=== PATIENT | male | born 1955 | race Caucasian/White ===

== ENCOUNTER 2018-01-06 15:11 | Observation (INO) ==
[2018-01-06] MEDS ORDERED: Aspirin 81 MG TAB.CHEW PO ONE (15:23)
--- NOTE | 2018-01-06 15:47 | Emergency Department Note ---
Disposition Clinical Impression: Atrial fibrillation with RVR Disposition: Admitted As Inpatient Condition: Good Referrals: Saritha Stephen MD [Primary Care Provider] - Time of Disposition: 16:48 General Adult HPI - General Stated complaint: "a-fib", JOCELYN Source: patient, family Nursing Notes Reviewed: Yes Vital Signs Reviewed: Yes - History of Present Illness HPI Narrative: History of present illness: 62-year-old male via POV, or shortness of breath chest pain palpitations. Patient was diagnosed atrial fibrillation about 6 or 7 years ago when he saw Dr. Grant from cardiology and that was the last time he saw him. Follow-up with Dr. Stephen his primary care provider about 2 weeks ago. Patient states that has been getting worse over the past several months worse in the past week or 2 every time he either does not given mild amounts of physical activity or after he eats he says he feels fullness in his neck and fluttering in his chest. Denies nausea diaphoresis. No fever or chills dysuria constipation diarrhea skin rash headache photophobia or neck stiffness - Related Data Home Medications Medication Instructions Recorded Confirmed Aspirin Enteric Coated [Aspirin EC] 81 mg PO DAILY 01/06/18 01/06/18 Furosemide [Lasix] 20 mg PO DAILY PRN 01/06/18 01/06/18 Garlic 500 mg PO DAILY 01/06/18 01/06/18 Glimepiride [Amaryl] 2 mg PO BID 01/06/18 01/06/18 Insulin Glargine,Hum.rec.anlog 20 unit SQ QPM 01/06/18 01/06/18 [Lantus Solostar] Linagliptin [Tradjenta] 5 mg PO DAILY 01/06/18 01/06/18 Lisinopril [Zestril] 10 mg PO DAILY 01/06/18 01/06/18 Magnesium Oxide [Magnesium] 500 mg PO DAILY 01/06/18 01/06/18 Metformin HCl [Metformin HCl ER] 1,000 mg PO BID 01/06/18 01/06/18 Metoprolol [Lopressor] 100 mg PO BID 01/06/18 01/06/18 [place]-3/Dha/Epa/Fish Oil [Fish Oil 1,000 mg PO DAILY 01/06/18 01/06/18 1,000 mg Softgel] Rosuvastatin [Crestor] 20 mg PO HS 01/06/18 01/06/18 Warfarin [Coumadin] 7.5 mg PO MOWEFR 01/06/18 01/06/18 Warfarin [Coumadin] 10 mg PO SUTUTHSA 01/06/18 01/06/18 Allergies Allergy/AdvReac Type Severity Reaction Status Date / Time Sulfa (Sulfonamide Allergy Unknown See Verified 10/29/17 14:39 Antibiotics) Comments codeine AdvReac Hallucinati Verified 10/29/17 14:40 ng All systems ED: reviewed and negative except as stated. Cardiovascular: Reports: chest pain, palpitations Past Medical History - Past Medical History Attestation: Yes The following information was validated with the patient. Source: patient, obtained from family Medical history: Reports: atrial fibrillation, diabetes, hypertension Psychiatric history: Reports: no psych history - Social History Smoking Status: Never smoker Smokeless Tobacco Status: No Alcohol use: Reports: none Drug use: Reports: none Physical Exam - General Limitations: no limitations General appearance: alert, in distress - Eye Eye exam: Present: PERRL - ENT ENT exam: normal exam, normal oropharynx - Neck Neck exam: Present: normal inspection, full ROM - Chest Chest inspection: Present: normal inspection, symmetric chest wall rise - Respiratory Respiratory exam: Present: normal lung sounds bilaterally - Cardiovascular Cardiovascular exam: Present: tachycardia, irregular rhythm - Abdominal Exam Abdominal exam: Present: soft, Non-Tender - Extremities Exam Extremities exam: Present: pedal edema - Expanded Lower Extremity Exam Neurovascular/Tendon exam: Present: normal capillary refill Gait: not tested/not observed - Back Exam Back exam: Present: normal inspection, full ROM - Neurological Exam Neurological exam: Present: alert, oriented X3 - Psychiatric Psychiatric exam: Present: normal affect, normal mood - Skin Skin exam: Present: warm, dry, intact Course - Reevaluation(s) Reevaluation #1: Briefly obese individual lying in bed with his at bedside is diabetic. Has one set of A. fib with RVR into the 130s. Chest is clear he has pedal edema. Waiting for troponin and chest x-ray. Patient gets a teen milligrams IV push diltiazem. Admission anticipated, disposition pending, providing 30 units of critical care services for this patient. Time: 15:49 Reevaluation #2: The case with the hospitalist Dr. George, patient accepted for admission in stable condition. Patient responded well to 5 iv diltiazem heart rate is now in the 70s. Time: 16:47 Vital Signs Temperature 98.0 F 01/06/18 15:53 Pulse Rate 92 01/06/18 15:53 Respiratory Rate 18 01/06/18 15:53 Blood Pressure 134/83 01/06/18 15:53 O2 Sat by Pulse Oximetry 98 01/06/18 15:53 Temperature 98.0 F 01/06/18 15:53 Pulse Rate 92 01/06/18 15:53 Respiratory Rate 18 01/06/18 15:53 Blood Pressure 134/83 01/06/18 15:53 O2 Sat by Pulse Oximetry 98 01/06/18 15:53 Oxygen Delivery Oxygen Delivery Room Air Medical Decision Making - Medical Records Medical records reviewed: Yes I reviewed the patient's medical records. - Lab Data Lab results reviewed: Yes I reviewed the patient's lab results. Result diagrams: 01/06/18 15:51 01/06/18 15:51 Lab Results 01/06/18 01/06/18 01/06/18 Range/Units 15:51 15:51 15:51 WBC 6.9 (4.3-11.1) K/mcL RBC 5.32 (4.19-5.50) M/mcL Hgb 12.9 (12.9-16.9) g/dL Hct 40.4 (37.5-50.1) % MCV 75.9 L (83.0-100.0) fL MCH 24.2 L (28.0-33.3) pg MCHC 31.9 (31.6-35.5) g/dL RDW 15.1 H (11.5-14.5) % Plt Count 197 (140-400) K/mcL MPV 8.8 L (9.4-12.4) fL Immature Gran % 0.4 (0-4) % Seg Neutrophils % 62.9 % Lymphocytes % 28.7 % Monocytes % 6.5 % Eosinophils % 0.9 % Basophils % 0.6 % Neutrophils # 4.4 (1.6-8.9) K/mcL Lymphocytes # 2.0 (0.6-4.6) K/mcL Monocytes # 0.5 (0.0-1.3) K/mcL Eosinophils # 0.1 (0.0-0.6) K/mcL Basophils # 0.0 (0.0-0.2) K/mcL Immature Plt Fraction 2.2 (1.1-6.1) % Sodium 137 (136-145) mEq/L Potassium 3.9 (3.5-5.1) mEq/L Chloride 103 (98-107) mEq/L Carbon Dioxide 29 (23-29) mEq/L BUN 16 (8-23) mg/dL Creatinine 1.01 (0.70-1.30) mg/dL Est GFR ( Amer) > 60 (> 60) Est GFR (Non-Af Amer) > 60 (> 60) BUN/Creatinine Ratio 16 (6-26) Glucose 160 H (70-105) mg/dL Calculated Osmolality 289 (280-300) Calcium 8.9 (8.6-10.3) mg/dL Troponin I < 0.03 (< 0.04) ng/mL - Radiology Data Radiology results reviewed: Yes I reviewed the patient's radiology results. - EKG Data EKG #1 EKG attestation: Yes I reviewed and interpreted this EKG. EKG results narrative: 12-lead EKG interpreted without Cardiologic assistant produce manager shows: Sinus rhythm at 76 bpm, normal NE QRS and QT corrected. No acute ischemic changes are noted. No acute changes when compared to a prior EKG dated 2014. Of note but more in the patient's room examining him and getting more information he went into runs of A. fib with RVR into the 130s. He said these this is what causing his symptoms.
[2018-01-06 16:03] LABS: Basophils % 0.6 %; Eosinophils # 0.1 K/mcL (0.0-0.6); Eosinophils % 0.9 %; Hematocrit 40.4 % (37.5-50.1); Hemoglobin 12.9 g/dL (12.9-16.9); Immature Granulocytes % 0.4 % (0-4); Immature Platelets 2.2 % (1.1-6.1); Lymphocytes % 28.7 %; Mean Corpuscular HGB Conc 31.9 g/dL (31.6-35.5); Mean Corpuscular Hemoglobin 24.2 pg (28.0-33.3); Mean Corpuscular Volume 75.9 fL (83.0-100.0); Mean Platelet Volume 8.8 fL (9.4-12.4); Monocytes # 0.5 K/mcL (0.0-1.3); Monocytes % 6.5 %; Neutrophils # 4.4 K/mcL (1.6-8.9); Platelet Count 197 K/mcL (140-400); Red Blood Count 5.32 M/mcL (4.19-5.50); Red Cell Distribution Width 15.1 % (11.5-14.5); Segmented Neutrophils % 62.9 %
[2018-01-06 16:15] LABS: BUN/Creatinine Ratio 16 (6-26); Blood Urea Nitrogen 16 mg/dL (8-23); Calcium 8.9 mg/dL (8.6-10.3); Carbon Dioxide 29 mEq/L (23-29); Chloride 103 mEq/L (98-107); Glucose 160 mg/dL (70-105); Osmolality,Calculated 289 (280-300); Potassium 3.9 mEq/L (3.5-5.1); Sodium 137 mEq/L (136-145); eGFR For African Americans > 60 (> 60); eGFR For Non-African Americans > 60 (> 60)
--- NOTE | 2018-01-06 17:47 | Internal Med History&Physical ---
Date of Encounter: 01/06/18 Time of Encounter: 17:40 Assessment and Plan (1) Chest pain Current visit: Yes Status: Acute Chest pressure usually associated with atrial fibrillation With RVR multiple risk factor for cad Qualifiers: Chest pain type: precordial pain Qualified Code(s): R07.2 - Precordial pain (2) HTN (hypertension) Current visit: Yes Status: Chronic Chronic resume home medication Qualifiers: Hypertension type: essential hypertension Qualified Code(s): I10 - Essential (primary) hypertension (3) Diabetes 1.5, managed as type 2 Current visit: Yes Status: Chronic Chronic resume home medication plus sliding scale (4) Morbid obesity Current visit: Yes Status: Chronic Chronic (5) Hyperlipidemia Current visit: Yes Status: Chronic Chronic recheck lipid profile in a.m. Qualifiers: Hyperlipidemia type: pure hypercholesterolemia Qualified Code(s): E78.00 - Pure hypercholesterolemia, unspecified; E78.0 - Pure hypercholesterolemia (6) Atrial fibrillation with RVR Current visit: Yes Status: Acute Patient appears to have frequent paroxysmal defibrillation he is already on Coumadin and consult cardiology to consider antiarrhythmic VS rate control and continue anticoagulation Internal Medicine - H&P: HPI Chief complaint: chest pain, palpitation Admitted From: Emergency Dept Plans for Post Hospital Care: Home History of present illness: Mr. Padilla is a 62 year old male Patient with history of atrial fibrillation that is paroxysmal . was seen by board certified behavioral analyst about 7-8 years ago but does not follow up with cardiology only followed up with PCP patient also has history of hypertension, diabetes, high cholesterol and obesity presented emergency room with shortness of breath chest pain and palpitation . has been having recurrent palpitation with with associated chest pressure and shortness of breath has had to increase his Lopressor from 200 mg and even up to 400 mg according to the in emergency room today he was in atrial fib heart regular with about 130 given Cardizem but converted to sinus rhythm . But he said he gets several episodes of recurrent palpitation. he Is currently chest pain-free Past Med Surg Social Fam HX - Past Medical History Medical history: atrial fibrillation, diabetes, hypertension Psychiatric history: no psych history - Social History Smoking Status: Never smoker Smokeless Tobacco Status: No Alcohol use: none Drug use: none Internal Medicine - H&P: Meds Aspirin Enteric Coated [Aspirin EC] 81 mg PO DAILY 01/06/18 [History] Furosemide [Lasix] 20 mg PO DAILY PRN 01/06/18 [History] Garlic 500 mg PO DAILY 01/06/18 [History] Glimepiride [Amaryl] 2 mg PO BID 01/06/18 [History] Insulin Glargine,Hum.rec.anlog [Lantus Solostar] 20 unit SQ QPM 01/06/18 [ History] Linagliptin [Tradjenta] 5 mg PO DAILY 01/06/18 [History] Lisinopril [Zestril] 10 mg PO DAILY 01/06/18 [History] Magnesium Oxide [Magnesium] 500 mg PO DAILY 01/06/18 [History] Metformin HCl [Metformin HCl ER] 1,000 mg PO BID 01/06/18 [History] Metoprolol [Lopressor] 100 mg PO BID 01/06/18 [History] [place]-3/Dha/Epa/Fish Oil [Fish Oil 1,000 mg Softgel] 1,000 mg PO DAILY 01/06/18 [History] Rosuvastatin [Crestor] 20 mg PO HS 01/06/18 [History] Warfarin [Coumadin] 7.5 mg PO MOWEFR 01/06/18 [History] Warfarin [Coumadin] 10 mg PO SUTUTHSA 01/06/18 [History] 3 Allergy/AdvReac Type Severity Reaction Status Date / Time Sulfa (Sulfonamide Allergy Unknown See Verified 10/29/17 14:39 Antibiotics) Comments codeine AdvReac Hallucinati Verified 10/29/17 14:40 ng All Systems PM: A 10-system review of systems was performed and is negative for pertinent findings except as documented above in the HPI. - Constitutional Constitutional: no chills, no fever(s), no night sweats - EENT Eyes: no change in vision, no discharge, no pain, no photophobia Ears: no ear discharge, no ear pain, no tinnitus Nose, mouth and throat: no dysphagia, no nasal discharge, no neck pain, no sore throat - Cardiovascular Cardiovascular ROS IM: chest pain, dyspnea, dyspnea on exertion, irregular heart rhythm - Respiratory Respiratory: cough, dyspnea, dyspnea on exertion, no wheezing, no excessive phlegm production - Gastrointestinal Gastrointestinal: no abdominal pain, no diarrhea, no hematemesis, no hematochezia, no melena, no nausea, no vomiting - Musculoskeletal Musculoskeletal ROS IM: no numbness, no tingling - Constitutional Vitals: Temp Pulse Resp BP Pulse Ox 98.0 F 92 18 134/83 98 01/06/18 15:53 01/06/18 15:53 01/06/18 15:53 01/06/18 15:53 01/06/18 15:53 - Head Head exam: Present: atraumatic, normocephalic - Eye Eye exam: Present: PERRL, conjuntiva pink, sclera anicteric Pupils: Present: PERRL - Neck Neck exam general surgery: Present: supple, trachea midline. Absent: lymphadenopathy - Respiratory Respiratory exam: Present: CTAB. Absent: accessory muscle use, rales, rhonchi, wheezes - Cardiovascular Cardiovascular exam: Present: RRR, +S1, +S2. Absent: diastolic murmur, gallop, rubs, systolic murmur - GI/Abdominal GI/Abdominal exam: Present: normal bowel sounds, soft, no peritoneal signs. Absent: distended, tenderness - Extremities Exam Extremities exam: Present: warm, radial pulses palpable and symmetrical. Absent : calf tenderness, cyanotic, pedal edema - Neurological Exam Neurological exam: Present: CN II-XII intact, oriented X3, no focal deficits. Absent: pronater drift, facial droop, speech deficit - Skin Skin exam: Present: dry, intact Internal Med - H&P Results - Labs CBC & Chem 7: 01/06/18 15:51 01/06/18 15:51
[2018-01-06] MEDS ORDERED: traMADol 50 MG TABLET PO PRN (17:52)
[2018-01-06] MEDS ORDERED: Acetaminophen 325 MG TABLET PO PRN (17:52)
[2018-01-06] MEDS ORDERED: Naloxone 0.4 MG/ML INJ IVP PRN (17:52)
[2018-01-06] MEDS ORDERED: *HR* Warfarin 10 MG TABLET PO SCH (18:00)
[2018-01-06] MEDS: Insulin DETEMIR 100 UNIT/ML X5UNITS SQ SCH (18:52)
[2018-01-06] MEDS: *HR* Glimepiride 2 MG TABLET PO SCH (19:36)
[2018-01-06] MEDS: Metoprolol 100 MG TABLET PO SCH (19:36)
[2018-01-06 22:09] LABS: INR 2.2; Prothrombin Time 24.6 Seconds (9.4-12.1)
[2018-01-06] MEDS ORDERED: *HR* Warfarin 5 MG TABLET PO ONE (23:45)
[2018-01-07 03:06] LABS: Basophils % 0.6 %; Eosinophils # 0.1 K/mcL (0.0-0.6); Eosinophils % 1.4 %; Hematocrit 40.4 % (37.5-50.1); Hemoglobin 12.8 g/dL (12.9-16.9); Immature Granulocytes % 0.1 % (0-4); Lymphocytes # 2.1 K/mcL (0.6-4.6); Lymphocytes % 30.2 %; Mean Corpuscular HGB Conc 31.7 g/dL (31.6-35.5); Mean Corpuscular Hemoglobin 24.1 pg (28.0-33.3); Mean Corpuscular Volume 75.9 fL (83.0-100.0); Mean Platelet Volume 8.7 fL (9.4-12.4); Monocytes # 0.5 K/mcL (0.0-1.3); Monocytes % 7.5 %; Neutrophils # 4.3 K/mcL (1.6-8.9); Platelet Count 163 K/mcL (140-400); Red Blood Count 5.32 M/mcL (4.19-5.50); Red Cell Distribution Width 15.3 % (11.5-14.5); Segmented Neutrophils % 60.2 %
[2018-01-07 03:12] LABS: Prothrombin Time 22.3 Seconds (9.4-12.1)
[2018-01-07 03:34] LABS: Alanine Aminotransferase 20 Units/L (7-52); Albumin 3.8 g/dL (3.5-5.7); Albumin/Globulin Ratio 1.5 (1.1-2.2); Alkaline Phosphatase 45 Units/L (34-104); Aspartate Amino Transferase 31 Units/L (13-39); BUN/Creatinine Ratio 13 (6-26); Bilirubin,Total 0.4 mg/dL (0.3-1.0); Blood Urea Nitrogen 14 mg/dL (8-23); Calcium 8.7 mg/dL (8.6-10.3); Carbon Dioxide 28 mEq/L (23-29); Chloride 102 mEq/L (98-107); Chol/HDL Ratio 3.9 (0-4.9); Cholesterol 89 mg/dL (< 200); Globulin 2.5 g/dL (2.4-3.5); Glucose 158 mg/dL (70-105); HDL Cholesterol 23 mg/dL (40-59); LDL Cholesterol,Calculated 12 mg/dL (0-99); Osmolality,Calculated 286 (280-300); Potassium 4.1 mEq/L (3.5-5.1); Sodium 136 mEq/L (136-145); Total Protein 6.3 g/dL (6.4-8.9); Triglycerides 271 mg/dL (< 150); eGFR For African Americans > 60 (> 60); eGFR For Non-African Americans > 60 (> 60)
[2018-01-07] MEDS: Metoprolol 100 MG TABLET PO SCH ×2 (07:22→20:25)
[2018-01-07] MEDS ORDERED: Dextrose Gel 15 GM/37.5 ML TUBE PO PRN ×2 (08:02)
[2018-01-07] MEDS ORDERED: D5% in Water 1,000 ML IVC PRN (08:02)
[2018-01-07] MEDS ORDERED: *HR* Dextrose 50 % in Water (Syg) 50 ML SYRINGE IVP PRN (08:02)
[2018-01-07] MEDS: Magnesium Oxide 400 MG TABLET PO SCH (08:27)
[2018-01-07] MEDS: Aspirin Enteric Coated 81 MG Tablet PO SCH (08:27)
[2018-01-07] MEDS ORDERED: Insulin LISPRO 300 UNITS/3 ML VIAL SQ ONE (08:43)
[2018-01-07] MEDS: Insulin LISPRO 300 UNITS/3 ML VIAL SQ SCH ×3 (08:49→17:09)
[2018-01-07] MEDS ORDERED: (Linagliptin [Tradjenta] 5 MG) PO SCH (09:00)
[2018-01-07] MEDS ORDERED: (Garlic [Garlic] 500 MG) PO SCH (09:00)
[2018-01-07] MEDS ORDERED: (Omega-3/Dha/Epa/Fish Oil [Fish Oil 1,000 Mg Softgel] PO SCH (09:00)
--- NOTE | 2018-01-07 10:01 | Electrocardiograph Report ---
[place] [id number] Test Date: 2018-01-06 Pat Name: Solo Padilla Department: 103 Room: 2A16 Gender: M [employer] Experiences: ALIRIO : 1955 Requested By: Prince Alan Order Number: [id number] Reading MD: Jane Bravo Measurements Intervals [place] Rate: 76 P: 24 IA: 169 QRS: -4 QRSD: 92 T: 47 QT: 360 QTc: 391 Interpretive Statements SINUS RHYTHM Electronically Signed On 01-07-2018 9:59:36 EST by Jane Bravo
--- NOTE | 2018-01-07 14:33 | Internal Med Progress Note ---
Date of Encounter: 01/07/18 Time of Encounter: 14:10 - Assessment and plan (1) Atrial fibrillation with RVR Current Visit: Yes Status: Acute Assessment and plan: Rate controlled with Cardizem PO anticoagulated with Coumadin pharmacist to dose coumadin goal INR: 2-3 cardiology consultation requested (2) Chest pain Current Visit: Yes Status: Resolved Assessment and plan: resolved at this time NPO after midnight nuclear stress test in am Qualifiers: Chest pain type: precordial pain Qualified Code(s): R07.2 - Precordial pain (3) Diabetes mellitus Current Visit: Yes Status: Chronic Assessment and plan: sliding scale insulin algorithm monitor FS and BG ADA diet Qualifiers: Diabetes mellitus type: type 2 Diabetes mellitus complication status: with unspecified complications Diabetes mellitus manager terminal insulin use: with manager terminal use Qualified Code(s): E11.8 - Type 2 diabetes mellitus with unspecified complications; Z79.4 - manager terminal (current) use of insulin; Z79.4 - half-way ( current) use of insulin; Z79.4 - manager terminal (current) use of insulin; Z79.4 - manager terminal (current) use of insulin (4) HTN (hypertension) Current Visit: Yes Status: Chronic Assessment and plan: BP within acceptable range continue home meds Hydralazine 10mg IV q6h PRN SBP>160 closely monitor BP Qualifiers: Hypertension type: essential hypertension Qualified Code(s): I10 - Essential (primary) hypertension (5) Hyperlipidemia Current Visit: Yes Status: Chronic Assessment and plan: continue statin therapy Qualifiers: Hyperlipidemia type: pure hypercholesterolemia Qualified Code(s): E78.00 - Pure hypercholesterolemia, unspecified; E78.0 - Pure hypercholesterolemia (6) Morbid obesity Current Visit: Yes Status: Chronic - Subjective Interval history: Patient seen and examined with family present at bedside. Resting in bed and denies any distress or discomfort at this time. No chest pain reported at this time. - Constitutional Vitals: Temp Pulse Resp BP Pulse Ox 97.8 F 62 18 150/88 97 01/07/18 11:22 01/07/18 11:22 01/07/18 11:22 01/07/18 11:22 01/07/18 11:22 General appearance: Present: A&O X 3, morbidly obese, no acute distress, answers questions appropriately - Head Head exam: Present: atraumatic, normocephalic - Eye Eye exam: Present: conjuntiva pink, sclera anicteric - Respiratory Respiratory exam: Present: CTAB. Absent: respiratory distress, wheezes - Cardiovascular Cardiovascular exam: Present: irregular rhythm, +S1, +S2. Absent: diastolic murmur, systolic murmur - GI/Abdominal GI/Abdominal exam: Present: normal bowel sounds, soft, no peritoneal signs. Absent: distended, tenderness - Extremities Exam Extremities exam: Present: warm, radial pulses palpable and symmetrical. Absent : calf tenderness - Neurological Exam Neurological exam: Present: alert, oriented X3 - Psychiatric Psychiatric exam: Present: normal affect, normal mood Internal Medicine: Result - Labs CBC & Chem 7: 01/07/18 02:57 01/07/18 02:57 Labs: Short CBC 01/07/18 Range/Units 02:57 WBC 7.1 (4.3-11.1) K/mcL Hgb 12.8 L (12.9-16.9) g/dL Hct 40.4 (37.5-50.1) % Plt Count 163 (140-400) K/mcL Neutrophils # 4.3 (1.6-8.9) K/mcL BMP 01/07/18 02:57 Sodium 136 Potassium 4.1 Chloride 102 Carbon Dioxide 28 BUN 14 Creatinine 1.04 Glucose 158 H Calcium 8.7 Cardiac Enzymes 01/06/1818 01/07/18 Range/Units 21:15 02:57 09:22 Troponin I < 0.03 < 0.03 < 0.03 (< 0.04) ng/mL Liver Function 01/07/18 Range/Units 02:57 Total Bilirubin 0.4 (0.3-1.0) mg/dL AST 31 (13-39) Units/L ALT 20 (7-52) Units/L Alkaline Phosphatase 45 (34-104) Units/L Albumin 3.8 (3.5-5.7) g/dL - ABG Interpretation ABG results: PT/INR, D-dimer PT 22.3 Seconds (9.4-12.1) H 01/07/18 02:57 Consult Discharge Plan - Plan Referrals: Saritha Stephen MD [Primary Care Provider] - 01/14/18 8:00 am (Please follow up as schedule..)
--- NOTE | 2018-01-07 14:54 | Cardiology Consult Note ---
Date of Encounter: 01/07/18 Time of Encounter: 14:40 Assessment and Plan (1) Atrial fibrillation with RVR Current Visit: Yes Status: Acute Patient seen to have frequent paroxysmal atrial fibrillation. Currently NSR. Continue lopressor. Add cardizem and increase as needed. On coumadin for AC. INR therapeutic. Follows with the [facility]. (2) Chest pain Current Visit: Yes Status: Resolved C/o typical chest pain symptoms. May be related to afib. He does have multiple cardiac risk factors including family history, HTN, HLD, and DM. EKG shows SR with no acute changes. Troponin negative. TTE ordered. Stress test is recommended for further eval. Qualifiers: Chest pain type: precordial pain Qualified Code(s): R07.2 - Precordial pain Discussion w patient/family: The assessment and plan as outlined above was discussed with the patient and/or family members who expressed understanding and agreement. All questions were answered. Thank you for involving us in the care of your patient. Please call with any questions. History of Present Illness Consult date: 01/07/18 Requesting physician: Thom Lebron Consult reason: afib Chief complaint: Chest pain and SOB History of present illness: Mr. Padilla is a 62 year old male with a past medical history of atrial fibrillation on coumadin, HTN, DM type II, HLD, and obesity. He presents with the c/o intermittent midsternal chest pain radiating to his neck and SOB with exertion. He associates his symptoms with elevated heart rates. Reports HR as high as 150 bpm at home . He would take extra metoprolol when needed for HR above 120. He says he was starting to take extra metoprolol everyday. Past Med Surg Social Fam HX - Past Medical History Attestation: Yes The following information was validated with the patient. Medical history: atrial fibrillation, diabetes, hypertension Psychiatric history: no psych history - Social History Smoking Status: Never smoker Smokeless Tobacco Status: No Alcohol use: none Drug use: none Medications and Allergies Aspirin Enteric Coated [Aspirin EC] 81 mg PO DAILY 01/06/18 [History] Furosemide [Lasix] 20 mg PO DAILY PRN 01/06/18 [History] Garlic 500 mg PO DAILY 01/06/18 [History] Glimepiride [Amaryl] 2 mg PO BID 01/06/18 [History] Insulin Glargine,Hum.rec.anlog [Lantus Solostar] 20 unit SQ QPM 01/06/18 [ History] Linagliptin [Tradjenta] 5 mg PO DAILY 01/06/18 [History] Lisinopril [Zestril] 10 mg PO DAILY 01/06/18 [History] Magnesium Oxide [Magnesium] 500 mg PO DAILY 01/06/18 [History] Metformin HCl [Metformin HCl ER] 1,000 mg PO BID 01/06/18 [History] Metoprolol [Lopressor] 100 mg PO BID 01/06/18 [History] [place]-3/Dha/Epa/Fish Oil [Fish Oil 1,000 mg Softgel] 1,000 mg PO DAILY 01/06/18 [History] Rosuvastatin [Crestor] 20 mg PO HS 01/06/18 [History] Warfarin [Coumadin] 7.5 mg PO MOWEFR 01/06/18 [History] Warfarin [Coumadin] 10 mg PO SUTUTHSA 01/06/18 [History] 3 Allergy/AdvReac Type Severity Reaction Status Date / Time Sulfa (Sulfonamide Allergy Unknown See Verified 10/29/17 14:39 Antibiotics) Comments codeine AdvReac Hallucinati Verified 10/29/17 14:40 ng All Systems Review: A 10-system review of systems was performed and is negative for pertinent findings except as documented above in the HPI. Physical Examination Vital Signs, Last 4 Hours Temp Pulse Resp BP Pulse Ox 01/07/18 11:22 97.8 F 62 18 150/88 97 General: Conversant, No Apparent Distress HEENT: Atraumatic, Normocephaly, Mucus Membranes Moist Neck: No JVD, Normal carotid pulses Cardiac: Other (irregularly irregular) Lungs: Normal Breath Sounds, No Wheeze, Rales, Rhonchi Neuro: Alert and responsive, No focal deficits noted Abdomen: Soft, Non-Tender Skin: No rashes noted on visualized skin Musculoskeletal: No Chest Wall Tenderness Extremities: No Clubbing, No Cyanosis, No Edema, Normal Pulses Results 01/07/18 02:57 01/07/18 02:57 Lab Results 01/06/18 01/06/18 01/07/18 21:15 21:49 02:57 WBC Hgb Hct Plt Count INR 2.2 Sodium Potassium Chloride Carbon Dioxide BUN Creatinine Glucose Calcium Magnesium Total Bilirubin AST ALT Alkaline Phosphatase Troponin I < 0.03 < 0.03 B-Natriuretic Peptide 01/07/18 01/07/18 01/07/18 02:57 02:57 02:57 WBC 7.1 Hgb 12.8 L Hct 40.4 Plt Count 163 INR Sodium 136 Potassium 4.1 Chloride 102 Carbon Dioxide 28 BUN 14 Creatinine 1.04 Glucose 158 H Calcium 8.7 Magnesium 2.0 Total Bilirubin 0.4 AST 31 ALT 20 Alkaline Phosphatase 45 Troponin I B-Natriuretic Peptide 132 H 01/07/18 01/07/18 02:57 09:22 WBC Hgb Hct Plt Count INR 2.0 Sodium Potassium Chloride Carbon Dioxide BUN Creatinine Glucose Calcium Magnesium Total Bilirubin AST ALT Alkaline Phosphatase Troponin I < 0.03 B-Natriuretic Peptide - Imaging and Cardiology Echo: pending, report reviewed - EKG Interpretation EKG results cardiology: personally reviewed Consult Discharge Plan - Plan Referrals: Saritha Stephen MD [Primary Care Provider] - 01/14/18 8:00 am (Please follow up as schedule..)
[2018-01-07] MEDS: Diltiazem CD (24hr) 120 MG CAPSULE PO SCH (15:41)
[2018-01-07] MEDS: Insulin DETEMIR 100 UNIT/ML X5UNITS SQ SCH (17:09)
[2018-01-07] MEDS ORDERED: Perflutren Lipid Microsphere 1.3 ML in 0.9 % Sodium Chloride 8.7 ML IVP ONE (17:49)
[2018-01-07] MEDS ORDERED: Perflutren Lipid Microsphere 2 ML VIAL ONE (17:52)
[2018-01-07] MEDS ORDERED: *HR* Warfarin 7.5 MG TABLET PO SCH (17:54)
[2018-01-07] MEDS ORDERED: Warfarin perPT PO PRN (18:00)
[2018-01-07] MEDS ORDERED: *HR* Warfarin 7.5 MG TABLET PO ONE (18:00)
[2018-01-07] MEDS ORDERED: *HR* Warfarin 2.5 MG TABLET PO ONE (18:00)
[2018-01-07] MEDS ORDERED: Insulin LISPRO 300 UNITS/3 ML VIAL SQ SCH (21:00)
[2018-01-08] MEDS ORDERED: Regadenoson 0.4 MG/5 ML SYRINGE IVP ONE (06:13)
[2018-01-08 06:34] LABS: Basophils # 0.1 K/mcL (0.0-0.2); Basophils % 0.8 %; Eosinophils # 0.1 K/mcL (0.0-0.6); Eosinophils % 1.5 %; Hematocrit 40.3 % (37.5-50.1); Hemoglobin 12.3 g/dL (12.9-16.9); Immature Granulocytes % 0.3 % (0-4); Lymphocytes % 31.2 %; Mean Corpuscular HGB Conc 30.5 g/dL (31.6-35.5); Mean Corpuscular Hemoglobin 23.6 pg (28.0-33.3); Mean Corpuscular Volume 77.2 fL (83.0-100.0); Mean Platelet Volume 8.6 fL (9.4-12.4); Monocytes # 0.5 K/mcL (0.0-1.3); Monocytes % 7.2 %; Neutrophils # 3.9 K/mcL (1.6-8.9); Platelet Count 170 K/mcL (140-400); Red Blood Count 5.22 M/mcL (4.19-5.50); Red Cell Distribution Width 15.3 % (11.5-14.5)
[2018-01-08 06:35] LABS: INR 2.3; Prothrombin Time 25.6 Seconds (9.4-12.1)
[2018-01-08 06:43] LABS: BUN/Creatinine Ratio 14 (6-26); Blood Urea Nitrogen 14 mg/dL (8-23); Calcium 8.7 mg/dL (8.6-10.3); Carbon Dioxide 28 mEq/L (23-29); Chloride 102 mEq/L (98-107); Glucose 214 mg/dL (70-105); Magnesium 2.2 mg/dL (1.6-2.6); Osmolality,Calculated 287 (280-300); Phosphorous 3.7 mg/dL (2.7-4.5); Potassium 4.6 mEq/L (3.5-5.1); Sodium 135 mEq/L (136-145); eGFR For African Americans > 60 (> 60); eGFR For Non-African Americans > 60 (> 60)
--- NOTE | 2018-01-08 09:25 | Cardiology Progress Note ---
Date of Encounter: 01/08/18 Time of Encounter: 09:23 Assessment and Plan (1) Atrial fibrillation with RVR Current Visit: Yes Status: Acute Patient seen to have frequent paroxysmal atrial fibrillation on admission. Currently NSR. 24 hour telemetry review shows less PAF. Avg HR 64- NSR. Noted to have atrial fibrillation around 8:00pm last night. Otherwise o recurrent events. Continue lopressor. Cardizem was added. On coumadin for AC. INR therapeutic. Follows with the [facility]. (2) Chest pain Current Visit: Yes Status: Resolved C/o typical chest pain symptoms. May be related to afib. He does have multiple cardiac risk factors including family history, HTN, HLD, and DM. EKG shows SR with no acute changes. Troponin negative. TTE ordered. 2 day stress test in progress. Qualifiers: Chest pain type: precordial pain Qualified Code(s): R07.2 - Precordial pain Discussion w patient/family: The assessment and plan as outlined above was discussed with the patient and/or family members who expressed understanding and agreement. All questions were answered. Thank you for involving us in the care of your patient. Please call with any questions. Subjective Principal diagnosis: afib with RVR, Chest pain Interval history: Denies recurrent chest pain overnight. Objective Vital Signs, Last 4 Hours Temp Pulse Resp BP Pulse Ox 01/08/18 07:27 98.2 F 62 14 125/79 96 General: Conversant, No Apparent Distress, Other (Obese male) HEENT: Atraumatic, Normocephaly, Mucus Membranes Moist Neck: No JVD, Normal carotid pulses Cardiac: Reg Rate and Rhythm, Normal S1 and S2, No Murmur Lungs: Normal Breath Sounds, No Wheeze, Rales, Rhonchi Neuro: Alert and responsive, No focal deficits noted Abdomen: Soft, Non-Tender Skin: No rashes noted on visualized skin Musculoskeletal: No Chest Wall Tenderness Extremities: No Clubbing, No Cyanosis, No Edema, Normal Pulses Results 01/08/18 06:12 01/08/18 06:12 Lab Results 01/07/18 01/08/18 01/08/18 09:22 06:12 06:12 WBC 6.5 Hgb 12.3 L Hct 40.3 Plt Count 170 INR 2.3 Sodium Potassium Chloride Carbon Dioxide BUN Creatinine Glucose Calcium Magnesium Troponin I < 0.03 01/08/18 06:12 WBC Hgb Hct Plt Count INR Sodium 135 L Potassium 4.6 Chloride 102 Carbon Dioxide 28 BUN 14 Creatinine 0.99 Glucose 214 H Calcium 8.7 Magnesium 2.2 Troponin I - Imaging and Cardiology Stress Test: pending Echo: pending - EKG Interpretation EKG results cardiology: personally reviewed Consult Discharge Plan - Plan Referrals: Saritha Stephen MD [Primary Care Provider] - 01/14/18 8:00 am (Please follow up as schedule..)
[2018-01-08] MEDS: Magnesium Oxide 400 MG TABLET PO SCH (10:31)
[2018-01-08] MEDS: Metoprolol 100 MG TABLET PO SCH ×2 (10:31→20:42)
[2018-01-08] MEDS: Diltiazem CD (24hr) 120 MG CAPSULE PO SCH (10:31)
[2018-01-08] MEDS: Aspirin Enteric Coated 81 MG Tablet PO SCH (10:31)
[2018-01-08] MEDS: Insulin LISPRO 300 UNITS/3 ML VIAL SQ SCH ×4 (10:32→21:46)
--- NOTE | 2018-01-08 12:28 | Internal Med Progress Note ---
Date of Encounter: 01/08/18 Time of Encounter: 11:26 - Assessment and plan (1) Atrial fibrillation with RVR Current Visit: Yes Status: Acute Assessment and plan: Rate controlled with Cardizem PO anticoagulated with Coumadin pharmacist to dose coumadin goal INR: 2-3 cardiology consultation appreciated (2) Chest pain Current Visit: Yes Status: Resolved Assessment and plan: resolved at this time s/p 1st part of the stress test, awaiting second part, which wont be done until Wednesday Qualifiers: Chest pain type: precordial pain Qualified Code(s): R07.2 - Precordial pain (3) Diabetes mellitus Current Visit: Yes Status: Chronic Assessment and plan: increased to medium dose sliding scale insulin algorithm continue home dose of Levemir monitor FS and BG ADA diet Qualifiers: Diabetes mellitus type: type 2 Diabetes mellitus complication status: with unspecified complications Diabetes mellitus glass handler insulin use: with intermediate use Qualified Code(s): E11.8 - Type 2 diabetes mellitus with unspecified complications; Z79.4 - armhole raiser lockstitch (current) use of insulin; Z79.4 - armhole raiser lockstitch ( current) use of insulin; Z79.4 - care home (current) use of insulin; Z79.4 - armhole raiser lockstitch (current) use of insulin (4) HTN (hypertension) Current Visit: Yes Status: Chronic Assessment and plan: BP within acceptable range continue home meds Hydralazine 10mg IV q6h PRN SBP>160 closely monitor BP Qualifiers: Hypertension type: essential hypertension Qualified Code(s): I10 - Essential (primary) hypertension (5) Hyperlipidemia Current Visit: Yes Status: Chronic Assessment and plan: continue statin therapy Qualifiers: Hyperlipidemia type: pure hypercholesterolemia Qualified Code(s): E78.00 - Pure hypercholesterolemia, unspecified; E78.0 - Pure hypercholesterolemia (6) Morbid obesity Current Visit: Yes Status: Chronic - Subjective Interval history: Patient seen and examined with family present at bedside. Resting in bed and denies any distress or discomfort at this time. No chest pain reported at this time. s/p part I of the stress test, 2nd part pending, will be done on Wednesday - Constitutional Vitals: Temp Pulse Resp BP Pulse Ox 98.2 F 62 16 115/73 94 01/08/18 12:22 01/08/18 12:22 01/08/18 12:22 01/08/18 12:22 01/08/18 12:22 General appearance: Present: A&O X 3, morbidly obese, no acute distress, answers questions appropriately - Head Head exam: Present: atraumatic, normocephalic - Eye Eye exam: Present: conjuntiva pink, sclera anicteric - Respiratory Respiratory exam: Absent: rales (equal air entry bilaterally ), respiratory distress, wheezes - Cardiovascular Cardiovascular exam: Present: RRR, +S1, +S2. Absent: diastolic murmur, gallop, rubs, systolic murmur - GI/Abdominal GI/Abdominal exam: Present: normal bowel sounds, soft, no peritoneal signs. Absent: distended, tenderness - Extremities Exam Extremities exam: Present: warm, radial pulses palpable and symmetrical. Absent : calf tenderness - Neurological Exam Neurological exam: Present: alert, oriented X3 - Psychiatric Psychiatric exam: Present: normal affect, normal mood Internal Medicine: Result - Labs CBC & Chem 7: 01/08/18 06:12 01/08/18 06:12 Labs: Short CBC 01/08/18 Range/Units 06:12 WBC 6.5 (4.3-11.1) K/mcL Hgb 12.3 L (12.9-16.9) g/dL Hct 40.3 (37.5-50.1) % Plt Count 170 (140-400) K/mcL Neutrophils # 3.9 (1.6-8.9) K/mcL BMP 01/08/18 06:12 Sodium 135 L Potassium 4.6 Chloride 102 Carbon Dioxide 28 BUN 14 Creatinine 0.99 Glucose 214 H Calcium 8.7 - ABG Interpretation ABG results: PT/INR, D-dimer PT 25.6 Seconds (9.4-12.1) H 01/08/18 06:12 - Impressions Impressions Echocardiogram 01/07/18 13:32 Impressions: LVEF 55-60%. No pulmonary hypertension. No segmental dysfunction. No significant valvular dysfunction. Moderately enlarged left atrial size. Left Ventricular Wall Motion: Rest Echo Findings All wall segments showed normal motion. Findings: Study Quality * Technically adequate exam. Right Ventricle * Normal right ventricular structure and function. Mitral Valve * Normal mitral valve structure and function. Aorta * Normally sized aortic root. Pericardium * The pericardium appears normal. ECG Findings * Normal sinus rhythm. Tricuspid Valve * No tricuspid stenosis. * Estimated RVSP is 27 mmHg. * No pulmonary hypertension. Left Ventricle * LVEF 55-60%. * No segmental dysfunction. * Mild left ventricular diastolic dysfunction. Pulmonic Valve * No pulmonic stenosis. * No pulmonic regurgitation. Aortic Valve * No aortic stenosis. * No aortic regurgitation. * Aortic valve not well visualized. Right Atrium * Right atrium is not well visualized. Interatrial Septum * Interatrial septum not well evaluated. IVC * The IVC is not dilated. * The IVC is not well evaluated. Left Atrium * Moderately dilated left atrium. Consult Discharge Plan - Plan Referrals: Saritha Stephen MD [Primary Care Provider] - 01/14/18 8:00 am (Please follow up as schedule..)
[2018-01-08] MEDS: Insulin DETEMIR 100 UNIT/ML X5UNITS SQ SCH (16:57)
[2018-01-08] MEDS ORDERED: *HR* Warfarin 5 MG TABLET PO ONE (18:00)
[2018-01-09 07:08] LABS: INR 1.9; Prothrombin Time 21.1 Seconds (9.4-12.1)
[2018-01-09 07:21] LABS: BUN/Creatinine Ratio 13 (6-26); Blood Urea Nitrogen 13 mg/dL (8-23); Calcium 8.6 mg/dL (8.6-10.3); Carbon Dioxide 27 mEq/L (23-29); Chloride 102 mEq/L (98-107); Glucose 223 mg/dL (70-105); Magnesium 2.1 mg/dL (1.6-2.6); Osmolality,Calculated 287 (280-300); Phosphorous 3.7 mg/dL (2.7-4.5); Potassium 4.2 mEq/L (3.5-5.1); Sodium 135 mEq/L (136-145); eGFR For African Americans > 60 (> 60); eGFR For Non-African Americans > 60 (> 60)
[2018-01-09 07:32] LABS: Basophils # 0.1 K/mcL (0.0-0.2); Basophils % 0.7 %; Eosinophils # 0.1 K/mcL (0.0-0.6); Eosinophils % 1.5 %; Hematocrit 40.1 % (37.5-50.1); Hemoglobin 12.4 g/dL (12.9-16.9); Immature Granulocytes % 0.3 % (0-4); Lymphocytes # 1.9 K/mcL (0.6-4.6); Lymphocytes % 27.7 %; Mean Corpuscular HGB Conc 30.9 g/dL (31.6-35.5); Mean Corpuscular Hemoglobin 23.8 pg (28.0-33.3); Monocytes # 0.5 K/mcL (0.0-1.3); Monocytes % 6.9 %; Neutrophils # 4.2 K/mcL (1.6-8.9); Platelet Count 186 K/mcL (140-400); Red Blood Count 5.21 M/mcL (4.19-5.50); Red Cell Distribution Width 15.4 % (11.5-14.5); Segmented Neutrophils % 62.9 %
--- NOTE | 2018-01-09 07:45 | Event Note ---
Date of Encounter: 01/09/18 Time of Encounter: 07:42 - Cardiology Event Note Patient awaiting completion of two day stress test for evaluation of chest pain. Second part will be completed tomorrow. Currently NSR. Telemetry review shows few small runs PAF. Increases cardizem at needed. May require rhythm control strategy. Will discuss after stress test resulted. Continue to monitor.
[2018-01-09] MEDS: Insulin LISPRO 300 UNITS/3 ML VIAL SQ SCH ×7 (09:05→21:41)
[2018-01-09] MEDS: Diltiazem CD (24hr) 180 MG CAPSULE PO SCH (09:05)
[2018-01-09] MEDS: Magnesium Oxide 400 MG TABLET PO SCH (09:05)
[2018-01-09] MEDS: Aspirin Enteric Coated 81 MG Tablet PO SCH (09:05)
[2018-01-09] MEDS: Metoprolol 100 MG TABLET PO SCH ×2 (09:05→21:41)
[2018-01-09] MEDS: Insulin DETEMIR 100 UNIT/ML X5UNITS SQ SCH ×4 (09:05→17:04)
--- NOTE | 2018-01-09 11:39 | Internal Med Progress Note ---
Date of Encounter: 01/09/18 Time of Encounter: 10:06 - Assessment and plan (1) Atrial fibrillation with RVR Current Visit: Yes Status: Acute Assessment and plan: Rate controlled with Cardizem PO anticoagulated with Coumadin pharmacist to dose coumadin goal INR: 2-3 cardiology consultation appreciated (2) Chest pain Current Visit: Yes Status: Resolved Assessment and plan: resolved at this time s/p 1st part of the stress test, awaiting second part, which wont be done until Wednesday Qualifiers: Chest pain type: precordial pain Qualified Code(s): R07.2 - Precordial pain (3) Diabetes mellitus Current Visit: Yes Status: Chronic Assessment and plan: medium dose sliding scale insulin algorithm added levemir 14units SQ qam in addition to the levemir at bedtime, and humalog 5units SQ TIDAC based on the insulin requirements over the last 24 hours. Pt noted to be eating baked goods in the room, diabetic education/dietary adherence counseling provided. Pt willing to comply monitor FS and BG ADA diet Qualifiers: Diabetes mellitus type: type 2 Diabetes mellitus complication status: with unspecified complications Diabetes mellitus half-way insulin use: with chief clerk shelter use Qualified Code(s): E11.8 - Type 2 diabetes mellitus with unspecified complications; Z79.4 - [facility] (current) use of insulin; Z79.4 - harbor boat pilot ( current) use of insulin; Z79.4 - harbor boat pilot (current) use of insulin; Z79.4 - harbor boat pilot (current) use of insulin (4) HTN (hypertension) Current Visit: Yes Status: Chronic Assessment and plan: BP within acceptable range continue home meds Hydralazine 10mg IV q6h PRN SBP>160 closely monitor BP Qualifiers: Hypertension type: essential hypertension Qualified Code(s): I10 - Essential (primary) hypertension (5) Hyperlipidemia Current Visit: Yes Status: Chronic Assessment and plan: continue statin therapy Qualifiers: Hyperlipidemia type: pure hypercholesterolemia Qualified Code(s): E78.00 - Pure hypercholesterolemia, unspecified; E78.0 - Pure hypercholesterolemia (6) Morbid obesity Current Visit: Yes Status: Chronic - Subjective Interval history: Patient seen and examined at bedside. Resting in chair and denies any distress or discomfort at this time. No chest pain reported at this time. s/p part I of the stress test, 2nd part pending, will be done on Wednesday - Constitutional Vitals: Temp Pulse Resp BP Pulse Ox 97.8 F 57 17 126/77 57 01/09/18 11:12 01/09/18 11:12 01/09/18 11:12 01/09/18 11:12 01/09/18 11:12 General appearance: Present: A&O X 3, morbidly obese, no acute distress, answers questions appropriately - Head Head exam: Present: atraumatic, normocephalic - Eye Eye exam: Present: conjuntiva pink, sclera anicteric - Respiratory Respiratory exam: Present: CTAB. Absent: accessory muscle use, rales, rhonchi, wheezes - Cardiovascular Cardiovascular exam: Present: RRR, +S1, +S2. Absent: diastolic murmur, gallop, rubs, systolic murmur - GI/Abdominal GI/Abdominal exam: Present: normal bowel sounds, soft, no peritoneal signs. Absent: distended, tenderness - Extremities Exam Extremities exam: Present: warm, radial pulses palpable and symmetrical. Absent : calf tenderness - Neurological Exam Neurological exam: Present: alert, oriented X3 Internal Medicine: Result - Labs CBC & Chem 7: 01/09/18 06:44 01/09/18 06:44 Labs: Short CBC 01/09/18 Range/Units 06:44 WBC 6.7 (4.3-11.1) K/mcL Hgb 12.4 L (12.9-16.9) g/dL Hct 40.1 (37.5-50.1) % Plt Count 186 (140-400) K/mcL Neutrophils # 4.2 (1.6-8.9) K/mcL BMP 01/09/18 06:44 Sodium 135 L Potassium 4.2 Chloride 102 Carbon Dioxide 27 BUN 13 Creatinine 0.98 Glucose 223 H Calcium 8.6 - ABG Interpretation ABG results: PT/INR, D-dimer PT 21.1 Seconds (9.4-12.1) H 01/09/18 06:44 Consult Discharge Plan - Plan Referrals: Saritha Stephen MD [Primary Care Provider] - 01/14/18 8:00 am (Please follow up as schedule..)
[2018-01-09] MEDS ORDERED: *HR* Warfarin 5 MG TABLET PO ONE (18:00)
[2018-01-09] MEDS: *HR* Glimepiride 2 MG TABLET PO SCH (18:36)
[2018-01-10 06:32] LABS: Eosinophils % 1.5 %; Hematocrit 41.9 % (37.5-50.1); Immature Granulocytes % 0.3 % (0-4); Lymphocytes % 29.2 %; Mean Corpuscular Hemoglobin 23.9 pg (28.0-33.3); Mean Corpuscular Volume 77.2 fL (83.0-100.0); Mean Platelet Volume 8.5 fL (9.4-12.4); Monocytes % 7.4 %; Platelet Count 188 K/mcL (140-400); Red Blood Count 5.43 M/mcL (4.19-5.50); Red Cell Distribution Width 15.5 % (11.5-14.5)
[2018-01-10 06:33] LABS: Basophils % 0.6 %; Eosinophils # 0.1 K/mcL (0.0-0.6); Monocytes # 0.5 K/mcL (0.0-1.3); Neutrophils # 4.1 K/mcL (1.6-8.9)
[2018-01-10 06:38] LABS: INR 1.8; Prothrombin Time 19.2 Seconds (9.4-12.1)
[2018-01-10 06:49] LABS: BUN/Creatinine Ratio 14 (6-26); Blood Urea Nitrogen 14 mg/dL (8-23); Calcium 9.1 mg/dL (8.6-10.3); Carbon Dioxide 27 mEq/L (23-29); Chloride 102 mEq/L (98-107); Glucose 210 mg/dL (70-105); Magnesium 2.1 mg/dL (1.6-2.6); Osmolality,Calculated 287 (280-300); Phosphorous 3.9 mg/dL (2.7-4.5); Potassium 4.3 mEq/L (3.5-5.1); Sodium 135 mEq/L (136-145); eGFR For African Americans > 60 (> 60); eGFR For Non-African Americans > 60 (> 60)
[2018-01-10] MEDS: Insulin LISPRO 300 UNITS/3 ML VIAL SQ SCH ×10 (07:35→20:45)
[2018-01-10] MEDS: Metoprolol 100 MG TABLET PO SCH ×2 (08:39→20:45)
[2018-01-10] MEDS: Diltiazem CD (24hr) 180 MG CAPSULE PO SCH (08:39)
[2018-01-10] MEDS: Aspirin Enteric Coated 81 MG Tablet PO SCH (08:39)
[2018-01-10] MEDS: Magnesium Oxide 400 MG TABLET PO SCH (08:39)
--- NOTE | 2018-01-10 09:34 | Cardiology Progress Note ---
Date of Encounter: 01/10/18 Time of Encounter: 09:31 Assessment and Plan (1) Atrial fibrillation with RVR Current Visit: Yes Status: Acute Patient seen to have frequent paroxysmal atrial fibrillation on admission. Currently NSR. 24 hour telemetry review shows intermittent PAF despite addition of cardizem. Avg HR 64- NSR. Noted to have small runs PAF 9 times through the night. Continue lopressor and cardizem. Unable to titrate further due to HR in the 50' s at times. If no improvement he may require anti-arrhythmic therapy. Will discuss after LHC. On coumadin for AC. Hold for LHC. Follows with the [facility]. (2) Chest pain Current Visit: Yes Status: Resolved C/o typical chest pain symptoms with activity. May be related to afib. He does have multiple cardiac risk factors including family history, HTN, HLD, and DM. EKG shows SR with no acute changes. Troponin negative. TTE shows preserved EF. 2 day stress test shows possible ischemia in the inferior apical wall and apex. I discussed [facility] R/B/A and he agrees to proceed. Hold coumadin and start heparin gtt. LHC when INR 1.6 or less. Qualifiers: Chest pain type: precordial pain Qualified Code(s): R07.2 - Precordial pain (3) Abnormal stress test Current Visit: Yes Status: Acute See plan above. Discussion w patient/family: The assessment and plan as outlined above was discussed with the patient and/or family members who expressed understanding and agreement. All questions were answered. Thank you for involving us in the care of your patient. Please call with any questions. Subjective Principal diagnosis: afib with RVR, Chest pain Interval history: Denies recurrent chest pain overnight. Objective Vital Signs, Last 4 Hours Temp Pulse Resp BP Pulse Ox 01/10/18 07:12 98.0 F 63 14 142/79 95 General: Conversant, No Apparent Distress HEENT: Atraumatic, Normocephaly, Mucus Membranes Moist Neck: No JVD, Normal carotid pulses Cardiac: Reg Rate and Rhythm, Normal S1 and S2, No Murmur Lungs: Normal Breath Sounds, No Wheeze, Rales, Rhonchi Neuro: Alert and responsive, No focal deficits noted Abdomen: Soft, Non-Tender Skin: No rashes noted on visualized skin Musculoskeletal: No Chest Wall Tenderness Extremities: No Clubbing, No Cyanosis, No Edema, Normal Pulses Results 01/10/18 06:16 01/10/18 06:16 Lab Results 01/10/18 01/10/18 01/10/18 06:16 06:16 06:16 WBC 6.8 Hgb 13.0 Hct 41.9 Plt Count 188 INR 1.8 Sodium 135 L Potassium 4.3 Chloride 102 Carbon Dioxide 27 BUN 14 Creatinine 0.98 Glucose 210 H Calcium 9.1 Magnesium 2.1 - EKG Interpretation EKG results cardiology: personally reviewed Consult Discharge Plan - Plan Referrals: Saritha Stephen MD [Primary Care Provider] - 01/14/18 8:00 am (Please follow up as schedule..)
--- NOTE | 2018-01-10 12:07 | Internal Med Progress Note ---
Date of Encounter: 01/10/18 Time of Encounter: 11:40 - Assessment and plan (1) Abnormal stress test Current Visit: Yes Status: Acute Assessment and plan: cardiology follow up requested (2) Atrial fibrillation with RVR Current Visit: Yes Status: Acute Assessment and plan: Rate controlled with Cardizem PO anticoagulated with Coumadin pharmacist to dose coumadin goal INR: 2-3 cardiology consultation appreciated (3) Chest pain Current Visit: Yes Status: Resolved Assessment and plan: resolved abnormal stress test reported cardiology follow up requested Qualifiers: Chest pain type: precordial pain Qualified Code(s): R07.2 - Precordial pain (4) Diabetes mellitus Current Visit: Yes Status: Chronic Assessment and plan: medium dose sliding scale insulin algorithm adjusted levemir and humalog dosing as per additional insulin requirements over the last 24 hours monitor FS and BG ADA diet Qualifiers: Diabetes mellitus type: type 2 Diabetes mellitus complication status: with unspecified complications Diabetes mellitus automatic log cut off sawyer insulin use: with halfway use Qualified Code(s): E11.8 - Type 2 diabetes mellitus with unspecified complications; Z79.4 - alf (current) use of insulin; Z79.4 - alf ( current) use of insulin; Z79.4 - pressroom 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0 - Pure hypercholesterolemia (7) Morbid obesity Current Visit: Yes Status: Chronic - Subjective Interval history: Pt seen and examined with family present at bedside. Resting in bed and denies any discomfort. Stress test reported to be abnormal suggestive of apical inferior and apex ischemia, normal EF cardiology follow up requested. - Constitutional Vitals: Temp Pulse Resp BP Pulse Ox 98.0 F 63 14 142/79 95 01/10/18 07:12 01/10/18 07:12 01/10/18 07:12 01/10/18 07:12 01/10/18 07:12 General appearance: Present: A&O X 3, morbidly obese, no acute distress, answers questions appropriately - Head Head exam: Present: atraumatic, normocephalic - Eye Eye exam: Present: conjuntiva pink, sclera anicteric - Respiratory Respiratory exam: Present: CTAB. Absent: respiratory distress, wheezes - Cardiovascular Cardiovascular exam: Present: RRR, +S1, +S2. Absent: diastolic murmur, gallop, rubs, systolic murmur - GI/Abdominal GI/Abdominal exam: Present: normal bowel sounds, soft, no peritoneal signs. Absent: distended, tenderness - Extremities Exam Extremities exam: Present: warm, radial pulses palpable and symmetrical. Absent : calf tenderness - Neurological Exam Neurological exam: Present: alert, oriented X3 - Psychiatric Psychiatric exam: Present: normal affect, normal mood Internal Medicine: Result - Labs CBC & Chem 7: 01/10/18 06:16 01/10/18 06:16 Labs: Short CBC 01/10/18 Range/Units 06:16 WBC 6.8 (4.3-11.1) K/mcL Hgb 13.0 (12.9-16.9) g/dL Hct 41.9 (37.5-50.1) % Plt Count 188 (140-400) K/mcL Neutrophils # 4.1 (1.6-8.9) K/mcL BMP 01/10/18 06:16 Sodium 135 L Potassium 4.3 Chloride 102 Carbon Dioxide 27 BUN 14 Creatinine 0.98 Glucose 210 H Calcium 9.1 - ABG Interpretation ABG results: PT/INR, D-dimer PT 19.2 Seconds (9.4-12.1) H 01/10/18 06:16 Consult Discharge Plan - Plan Referrals: Saritha Stephen MD [Primary Care Provider] - 01/14/18 8:00 am (Please follow up as schedule..)
[2018-01-10] MEDS: *HR* Heparin 5,000 UNIT/ML VIAL SQ SCH (17:19)
[2018-01-10] MEDS ORDERED: *HR* Warfarin 7.5 MG TABLET PO ONE (18:00)
[2018-01-10] MEDS: Insulin DETEMIR 100 UNIT/ML X5UNITS SQ SCH (20:44)
[2018-01-11] MEDS: *HR* Heparin 5,000 UNIT/ML VIAL SQ SCH ×2 (05:09→17:09)
[2018-01-11 06:46] LABS: Basophils % 0.7 %; Eosinophils # 0.1 K/mcL (0.0-0.6); Eosinophils % 1.8 %; Hematocrit 41.3 % (37.5-50.1); Hemoglobin 12.7 g/dL (12.9-16.9); Immature Granulocytes % 0.4 % (0-4); Lymphocytes # 1.8 K/mcL (0.6-4.6); Lymphocytes % 30.8 %; Mean Corpuscular HGB Conc 30.8 g/dL (31.6-35.5); Mean Corpuscular Hemoglobin 23.8 pg (28.0-33.3); Mean Corpuscular Volume 77.5 fL (83.0-100.0); Mean Platelet Volume 8.6 fL (9.4-12.4); Monocytes # 0.4 K/mcL (0.0-1.3); Monocytes % 6.7 %; Neutrophils # 3.4 K/mcL (1.6-8.9); Platelet Count 164 K/mcL (140-400); Red Blood Count 5.33 M/mcL (4.19-5.50); Red Cell Distribution Width 15.6 % (11.5-14.5); Segmented Neutrophils % 59.6 %
[2018-01-11 06:51] LABS: INR 1.5; Prothrombin Time 16.6 Seconds (9.4-12.1)
[2018-01-11 07:00] LABS: BUN/Creatinine Ratio 13 (6-26); Blood Urea Nitrogen 13 mg/dL (8-23); Carbon Dioxide 27 mEq/L (23-29); Chloride 103 mEq/L (98-107); Glucose 206 mg/dL (70-105); Magnesium 2.1 mg/dL (1.6-2.6); Osmolality,Calculated 286 (280-300); Phosphorous 3.8 mg/dL (2.7-4.5); Potassium 4.6 mEq/L (3.5-5.1); Sodium 135 mEq/L (136-145); eGFR For African Americans > 60 (> 60); eGFR For Non-African Americans > 60 (> 60)
[2018-01-11] MEDS: Magnesium Oxide 400 MG TABLET PO SCH (08:42)
[2018-01-11] MEDS: Aspirin Enteric Coated 81 MG Tablet PO SCH (08:42)
[2018-01-11] MEDS: Insulin DETEMIR 100 UNIT/ML X5UNITS SQ SCH ×2 (08:44→20:23)
[2018-01-11] MEDS: Insulin LISPRO 300 UNITS/3 ML VIAL SQ SCH ×7 (08:44→20:23)
--- NOTE | 2018-01-11 09:12 | Cardiology Progress Note ---
Date of Encounter: 01/11/18 Time of Encounter: 09:00 Assessment and Plan (1) Atrial fibrillation with RVR Current Visit: Yes Status: Acute Patient seen to have frequent paroxysmal atrial fibrillation on admission. Currently NSR. 24 hour telemetry review shows only one run PAF for 3 seconds, otherwise he is NSR. Continue lopressor and cardizem. Unable to titrate further due to HR in the 50' s at times. If recurrent afib will consider antiarrhythmic therapy. On coumadin for AC. Hold for LHC. Follows with the [facility]. On heparin for DVT prophylaxis and asa daily. (2) Chest pain Current Visit: Yes Status: Resolved C/o typical chest pain symptoms with activity. May be related to afib. He does have multiple cardiac risk factors including family history, HTN, HLD, and DM. EKG shows SR with no acute changes. Troponin negative. TTE shows preserved EF. 2 day stress test shows possible ischemia in the inferior apical wall and apex. I discussed [facility] R/B/A and he agrees to proceed. Hold coumadin and start heparin gtt. [facility] planned for tomorrow. Qualifiers: Chest pain type: precordial pain Qualified Code(s): R07.2 - Precordial pain (3) Abnormal stress test Current Visit: Yes Status: Acute See plan above. Discussion w patient/family: The assessment and plan as outlined above was discussed with the patient and/or family members who expressed understanding and agreement. All questions were answered. Thank you for involving us in the care of your patient. Please call with any questions. Subjective Principal diagnosis: afib with RVR, Chest pain Interval history: Denies recurrent chest pain overnight. Patient and requesting Dr. Pedraza to do C. [facility] planned for tomorrow with Dr. Pedraza. Objective Vital Signs, Last 4 Hours Temp Pulse Resp BP Pulse Ox 01/11/18 07:00 97.9 F 58 16 128/78 94 General: Conversant, No Apparent Distress HEENT: Atraumatic, Normocephaly, Mucus Membranes Moist Neck: No JVD, Normal carotid pulses Cardiac: Reg Rate and Rhythm, Normal S1 and S2, No Murmur Lungs: Normal Breath Sounds, No Wheeze, Rales, Rhonchi Neuro: Alert and responsive, No focal deficits noted Abdomen: Soft, Non-Tender Skin: No rashes noted on visualized skin Musculoskeletal: No Chest Wall Tenderness Extremities: No Clubbing, No Cyanosis, No Edema, Normal Pulses Results 01/11/18 06:34 01/11/18 06:34 Lab Results 01/11/18 01/11/18 01/11/18 06:34 06:34 06:34 WBC 5.7 Hgb 12.7 L Hct 41.3 Plt Count 164 INR 1.5 Sodium 135 L Potassium 4.6 Chloride 103 Carbon Dioxide 27 BUN 13 Creatinine 1.01 Glucose 206 H Calcium 9.0 Magnesium 2.1 - Imaging and Cardiology Echo: report reviewed - EKG Interpretation EKG results cardiology: personally reviewed Consult Discharge Plan - Plan Referrals: Saritha Stephen MD [Primary Care Provider] - 01/14/18 8:00 am (Please follow up as schedule..)
--- NOTE | 2018-01-11 11:29 | Internal Med Progress Note ---
Date of Encounter: 01/11/18 Time of Encounter: 10:45 - Assessment and plan (1) Abnormal stress test Current Visit: Yes Status: Acute Assessment and plan: scheduled for [facility] in am (01/12/18) NPO after midnight coumadin on hold until after LHC heparin sq for dvt ppx (2) Atrial fibrillation with RVR Current Visit: Yes Status: Acute Assessment and plan: Rate controlled with Cardizem PO anticoagulated with Coumadin currently on hold for [facility] in am cardiology consultation appreciated (3) Chest pain Current Visit: Yes Status: Resolved Assessment and plan: resolved abnormal stress test reported cardiology on board, [facility] in am Qualifiers: Chest pain type: precordial pain Qualified Code(s): R07.2 - Precordial pain (4) Diabetes mellitus Current Visit: Yes Status: Chronic Assessment and plan: medium dose sliding scale insulin algorithm adjusted levemir and humalog dosing as per additional insulin requirements over the last 24 hours monitor FS and BG ADA diet Qualifiers: Diabetes mellitus type: type 2 Diabetes mellitus complication status: with unspecified complications Diabetes mellitus snf insulin use: with superintendent 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 terminal 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 Qualified Code(s): E11.8 - Type 2 diabetes mellitus with unspecified complications; Z79.4 - terminal worker (current) use of insulin; Z79.4 - terminal worker ( current) use of insulin; Z79.4 - terminal worker (current) use of insulin; Z79.4 - longterm (current) use of insulin (5) HTN (hypertension) Current Visit: Yes Status: Chronic Assessment and plan: BP within acceptable range continue home meds Hydralazine 10mg IV q6h PRN SBP>160 closely monitor BP Qualifiers: Hypertension type: essential hypertension Qualified Code(s): I10 - Essential (primary) hypertension (6) Hyperlipidemia Current Visit: Yes Status: Chronic Assessment and plan: continue statin therapy Qualifiers: Hyperlipidemia type: pure hypercholesterolemia Qualified Code(s): E78.00 - Pure hypercholesterolemia, unspecified; E78.0 - Pure hypercholesterolemia (7) Morbid obesity Current Visit: Yes Status: Chronic - Subjective Interval history: Pt seen and examined with family present at bedside. Resting in bed and denies any discomfort. Stress test reported to be abnormal suggestive of apical inferior and apex ischemia, normal EF. Cardiology on board, scheduled for [facility] in am (01/12/18). Coumadin on hold until after LHC - Constitutional Vitals: Temp Pulse Resp BP Pulse Ox 97.9 F 58 16 128/78 94 01/11/18 07:00 01/11/18 07:00 01/11/18 07:00 01/11/18 07:00 01/11/18 07:00 General appearance: Present: A&O X 3, morbidly obese, no acute distress, answers questions appropriately - Head Head exam: Present: atraumatic, normocephalic - Eye Eye exam: Present: conjuntiva pink, sclera anicteric - Respiratory Respiratory exam: Present: CTAB. Absent: accessory muscle use, rales, rhonchi, wheezes - Cardiovascular Cardiovascular exam: Present: RRR, +S1, +S2. Absent: diastolic murmur, gallop, rubs, systolic murmur - GI/Abdominal GI/Abdominal exam: Present: normal bowel sounds, soft, no peritoneal signs. Absent: distended, tenderness - Extremities Exam Extremities exam: Present: warm, radial pulses palpable and symmetrical. Absent : calf tenderness - Neurological Exam Neurological exam: Present: alert, oriented X3 Internal Medicine: Result - Labs CBC & Chem 7: 01/11/18 06:34 01/11/18 06:34 Labs: Short CBC 01/11/18 Range/Units 06:34 WBC 5.7 (4.3-11.1) K/mcL Hgb 12.7 L (12.9-16.9) g/dL Hct 41.3 (37.5-50.1) % Plt Count 164 (140-400) K/mcL Neutrophils # 3.4 (1.6-8.9) K/mcL BMP 01/11/18 06:34 Sodium 135 L Potassium 4.6 Chloride 103 Carbon Dioxide 27 BUN 13 Creatinine 1.01 Glucose 206 H Calcium 9.0 - ABG Interpretation ABG results: PT/INR, D-dimer PT 16.6 Seconds (9.4-12.1) H 01/11/18 06:34 Consult Discharge Plan - Plan Referrals: Saritha Stephen MD [Primary Care Provider] - 01/14/18 8:00 am (Please follow up as schedule..)
[2018-01-11] MEDS: Metoprolol 100 MG TABLET PO SCH ×2 (12:34→20:23)
[2018-01-11] MEDS: Diltiazem CD (24hr) 180 MG CAPSULE PO SCH (12:34)
[2018-01-12 05:47] LABS: Basophils % 0.6 %; Eosinophils # 0.1 K/mcL (0.0-0.6); Eosinophils % 1.5 %; Hematocrit 42.4 % (37.5-50.1); Hemoglobin 13.2 g/dL (12.9-16.9); Immature Granulocytes % 0.3 % (0-4); Lymphocytes # 2.2 K/mcL (0.6-4.6); Lymphocytes % 32.3 %; Mean Corpuscular HGB Conc 31.1 g/dL (31.6-35.5); Mean Corpuscular Hemoglobin 23.9 pg (28.0-33.3); Mean Corpuscular Volume 76.8 fL (83.0-100.0); Mean Platelet Volume 8.7 fL (9.4-12.4); Monocytes # 0.5 K/mcL (0.0-1.3); Monocytes % 7.2 %; Neutrophils # 3.9 K/mcL (1.6-8.9); Platelet Count 173 K/mcL (140-400); Red Blood Count 5.52 M/mcL (4.19-5.50); Red Cell Distribution Width 15.6 % (11.5-14.5); Segmented Neutrophils % 58.1 %
[2018-01-12 05:55] LABS: INR 1.4; Prothrombin Time 14.9 Seconds (9.4-12.1)
[2018-01-12 06:03] LABS: BUN/Creatinine Ratio 13 (6-26); Blood Urea Nitrogen 14 mg/dL (8-23); Calcium 9.2 mg/dL (8.6-10.3); Carbon Dioxide 30 mEq/L (23-29); Chloride 102 mEq/L (98-107); Glucose 200 mg/dL (70-105); Magnesium 2.1 mg/dL (1.6-2.6); Osmolality,Calculated 292 (280-300); Phosphorous 3.9 mg/dL (2.7-4.5); Potassium 4.2 mEq/L (3.5-5.1); Sodium 138 mEq/L (136-145); eGFR For African Americans > 60 (> 60); eGFR For Non-African Americans > 60 (> 60)
[2018-01-12] MEDS: *HR* Heparin 5,000 UNIT/ML VIAL SQ SCH ×2 (06:08→17:04)
[2018-01-12] MEDS: Insulin LISPRO 300 UNITS/3 ML VIAL SQ SCH ×8 (07:24→21:07)
[2018-01-12] MEDS: Magnesium Oxide 400 MG TABLET PO SCH (08:03)
[2018-01-12] MEDS: Metoprolol 100 MG TABLET PO SCH (08:03)
[2018-01-12] MEDS: Diltiazem CD (24hr) 180 MG CAPSULE PO SCH (08:04)
[2018-01-12] MEDS: Aspirin Enteric Coated 81 MG Tablet PO SCH (08:04)
[2018-01-12] MEDS: Insulin DETEMIR 100 UNIT/ML X5UNITS SQ SCH ×2 (08:04→21:08)
[2018-01-12] MEDS ORDERED: 0.9 % Sodium Chloride 1,000 ML ONE ×2 (10:52→11:02)
[2018-01-12] MEDS ORDERED: Nitroglycerin 1,000 MCG/10 ML VIAL IV ONE (10:52)
[2018-01-12] MEDS ORDERED: *HR* Heparin 10,000 UNIT/10 ML VIAL ONE (10:52)
[2018-01-12] MEDS ORDERED: ISOVUE-370 200 ML INFUS..BTL IV ONE (10:52)
[2018-01-12] MEDS ORDERED: Verapamil 5 MG/2 ML VIAL ONE (10:52)
[2018-01-12] MEDS ORDERED: Heparin 1,000 UNITS/500 mL 500 ML ONE (10:52)
--- NOTE | 2018-01-12 10:55 | Internal Med Progress Note ---
Date of Encounter: 01/12/18 Time of Encounter: 10:52 - Assessment and plan (1) Abnormal stress test Current Visit: Yes Status: Acute Assessment and plan: No known CAD. Stress test was small size, mild intensity reversible defect possibly secondary to ischemia. [facility] 01/12/18. Cont ASA, statin. Cardiology following (2) Atrial fibrillation with RVR Current Visit: Yes Status: Acute Assessment and plan: per hx. With frequent paroxysmal atrial fibrillation on admission. Now rate controlled with BB. If recurrent A. fib cardiology noted will consider anti- arrhythmic therapy. Resume Coumadin until after heart catheterization. Cardiology following (3) Diabetes 1.5, managed as type 2 Current Visit: Yes Status: Chronic Assessment and plan: per hx. sugars variable but acceptable. Holding home oral hypoglycemics. SSI. Monitor blood sugars and titrate PRN (4) HTN (hypertension) Current Visit: Yes Status: Chronic Assessment and plan: per hx. BP controlled. Continue home BP medications. Monitor BP and titrate PRN Qualifiers: Hypertension type: essential hypertension Qualified Code(s): I10 - Essential (primary) hypertension (5) Morbid obesity Current Visit: Yes Status: Chronic Assessment and plan: BMI 47, weight 141 kg. Lifestyle modifications encouraged - Subjective Interval history: Seen and examined at bedside. Patient is new to me, information obtained from chart review and patient report. Sitting up in room, awaiting left heart catheter. Says he feels better, at baseline. No chest pain or shortness of breath. No palpitations. - Constitutional Vitals: Temp Pulse Resp BP Pulse Ox 97.8 F 57 16 127/81 95 01/12/18 08:48 01/12/18 08:48 01/12/18 08:48 01/12/18 08:48 01/12/18 08:48 General appearance: Present: A&O X 3, morbidly obese, no acute distress, answers questions appropriately - Head Head exam: Present: atraumatic, normocephalic - Eye Eye exam: Present: PERRL, conjuntiva pink, sclera anicteric Pupils: Present: PERRL - Neck Neck exam general surgery: Present: supple, trachea midline. Absent: lymphadenopathy - Respiratory Respiratory exam: Present: CTAB. Absent: accessory muscle use, rales, rhonchi, wheezes - Cardiovascular Cardiovascular exam: Present: irregular rhythm, +S1, +S2. Absent: diastolic murmur, gallop, rubs, systolic murmur - GI/Abdominal GI/Abdominal exam: Present: normal bowel sounds, soft, no peritoneal signs. Absent: distended, tenderness - Extremities Exam Extremities exam: Present: warm, radial pulses palpable and symmetrical. Absent : calf tenderness, cyanotic, pedal edema - Neurological Exam Neurological exam: Present: CN II-XII intact, oriented X3, no focal deficits. Absent: pronater drift, facial droop, speech deficit - Skin Skin exam: Present: dry, intact Internal Medicine: Result - Labs CBC & Chem 7: 01/12/18 05:33 01/12/18 05:33 Labs: Short CBC 01/12/18 Range/Units 05:33 WBC 6.7 (4.3-11.1) K/mcL Hgb 13.2 (12.9-16.9) g/dL Hct 42.4 (37.5-50.1) % Plt Count 173 (140-400) K/mcL Neutrophils # 3.9 (1.6-8.9) K/mcL BMP 01/12/18 05:33 Sodium 138 Potassium 4.2 Chloride 102 Carbon Dioxide 30 H BUN 14 Creatinine 1.06 Glucose 200 H Calcium 9.2 - ABG Interpretation ABG results: PT/INR, D-dimer PT 14.9 Seconds (9.4-12.1) H 01/12/18 05:33 Consult Discharge Plan - Plan Referrals: Saritha Stephen MD [Primary Care Provider] - 01/14/18 8:00 am (Please follow up as schedule..)
[2018-01-12] MEDS ORDERED: *HR* FentaNYL (PF) 100 MCG/2 ML VIAL ONE (11:04)
[2018-01-12] MEDS ORDERED: *HR* Midazolam HCl 2 MG/2 ML VIAL ONE (11:04)
--- NOTE | 2018-01-12 11:04 | Pre-Sedation Evaluation ---
Pre-sedation evaluation - Pre-sedation checklist Date of procedure: 01/12/18 Procedure: [facility] Recent Vitals: Last Vital Signs Temp 97.8 F 01/12/18 08:48 Pulse 57 01/12/18 08:48 Resp 16 01/12/18 08:48 BP 127/81 01/12/18 08:48 Pulse Ox 95 01/12/18 08:48 H&P (including ROS) documented in medical record: Yes Previous reaction to sedatives/anesthetics: No Dietary Status: NPO after Midnight Airway Assessment: Patient can open mouth completely, TMJ function normal ASA Classification *see protocol: CLASS II-Mild systemic disease Plan of Care: Pt appropriate candidate for procedure/moderate/conscious sedation , Risks/benefits of procedure/sedation discussed w/ patient/family
--- NOTE | 2018-01-12 11:41 | Invasive Diagnostic Lab Proc ---
Name: Solo Padilla Date of Study: 01/12/2018 Date: 1955 Ht: 68.1in Medical Record#: [id number] Age: 62 Wt: 310.85lb Gender: Male BSA: 2.47 Order #: [id number] BMI: 47.11 Physicians Procedure Physician: Mati Pedraza MD, [facility] Referring MD: Referring MD: Staff Name Position Time In JamesBrooks RT (R) Scrub 11:07 AM Tenisha Tobar RN Traffic Administrator 11:07 AM Shanthi Olguin RT Monitor 11:07 AM Indications Indication Unstable Angina Procedures Performed Procedure L HRT ARTERY/VENTRICLE ANGIO Pre-Procedure Checklist Informed consent is complete signed and on chart. H&P is on chart. ID band is on and ID verified with patient. Patient NPO for procedure The procedure was described for the patient and questions were answered. Blood Pressure: 120/72 ECG is on chart. Plan of Care Patient will tolerate the procedure without complications. Adequate level of comfort will be maintained. Hemodynamics will remain stable Patient will recover from procedure without complications. Respiratory function will be maintained. Cardiac rhythm will remain stable. Patient temperature will be maintained. Patient and/or family have verbalized understanding of the procedure. Patient Education Chief Complaint/Reason for Test: Cardiac Cath Developmental Category: Adult (18-64 years) Developmentally Appropriate for Age: Yes Learning Barriers: None Education Needs: Procedure Education Method: Verbal Information Taught: Cardiac Cath Educational Evaluation: Able to repeat information Intravenous Access Time IV Size Location DC'd Fluid/Drip Rate Units RN 20g 1 1/" Patent On Arrival Lt Hand 0.9NaCl 25 ml/hr Allergies codeine SULFA (sulfonamide) Vital Signs Time BP (mmHg) HR (bpm) O2 Sat. RR (bpm) LOC 120 / 72 57 98 % 16 5 = Fully awake and oriented or at pre-proc level 11:09 AM / % 5 = Fully awake and oriented or at pre-proc level 11:09 AM / % 4 = Oriented but drowsy 11:06 AM 154 / 94 66 98 % 11:11 AM 141 / 72 61 100 % 11:16 AM 134 / 76 61 99 % 21 11:21 AM 133 / 81 91 97 % 11:26 AM 129 / 75 114 97 % 29 Procedural Medications Time Medication Dose Units Method Given By 11:09 AM Oxygen 2 L/min nasal cannula Tenisha Tobar RN 11:09 AM Versed 2 mg Intravenous Tenisha Tobar RN 11:09 AM Fentanyl 50 mcg Intravenous Tenisha Tobar RN 11:14 AM Lidocaine 2% 0.5 ml Subcutaneous Mati Pedraza MD, [facility] 11:19 AM Heparin units Nitroglycerin 200 mcg Verapamil 2.5 mg Intraarterial Mati Pedraza MD, [facility] ASA Classification: CLASS II- Mild systemic disease (i.e. well-controlled diabetes, hypertension, asthma, cigarette smoking) Raul Score Preprocedure Postprocedure Activity 2- Moves 4 extremities sustained head lift Activity 2- Moves 4 extremities sustained head lift Circulation 2- SBP +/= 20 points of pre-anesthetic level Circulation 2- SBP +/= 20 points of pre-anesthetic level Consciousness 2- Awake and alert oriented x 3 Consciousness 2- Awake and alert oriented x 3 O2 Saturation 2- Able to maintain O2 satruation of 92% on room air O2 Saturation 2- Able to maintain O2 satruation of 92% on room air Respiratory 2- Able to deep breathe and cough well Respiratory 2- Able to deep breathe and cough well Total Score 10 Total Score 10 Contrast Agent: Isovue Diagnostic Contrast: 41 ml Total Contrast: 41 ml Fluoro Dose: 332 mGy Procedure Log Time Note Enter By 10:55 AM CathStat 11:05 AM Pt arrived to supervisor labor gang 2 at 11:00 scoates 11:05 AM Vitals capture started with the following parameters, Patient=Adult, Interval=5 min, Initial Kxilihpt=343 mmHg, Deflation Rate=5 mmHg, Cuff placed on Right Arm 11:06 AM HR=66 bpm, OOTK=807/94 mmhg, SpO2=98 % 11:06 AM Physician arrived 11:03 scoates 11:06 AM Bhargavi completed scoates 11:07 AM Sign in performed according to hospital policy. scoates 11:07 AM Brooks Ramirez RT (R) Position: Scrub Time in: 11:07 scoates 11:07 AM Tenisha Tobar RN Position: Traffic Administrator Time in: 11:07 scoates 11:07 AM Shanthi Olguin RT Position: Monitor Time in: 11:07 scoates 11:07 AM Shanthi Olguin relived Sera Lewis RN scoates 11:08 AM Case Delayed no scoates 11: AM Hair removed from procedure site in holding area using clippers. Bilateral groin prepped with Chloraprep by Sera Lewis RN, then patient was draped. Skin intact. scoates 11:08 AM Physician arrived 11: scoates 11: AM ASA Class CLASS II- Mild systemic disease (i.e. well-controlled diabetes, hypertension, asthma, cigarette smoking) scoates 11: AM Meet and greet completed scoates 11: AM Sign in performed according to hospital policy. scoates 11: AM Procedure start 11: scoates 11: AM Time: 11: Oxygen on at 2 L/min per nasal cannula by Tenisha Tobar RN scoates : AM Time: : Patient comfortable and pain free: Yes scoates 11: AM Time: :LOC: 5 = Fully awake and oriented or at pre-proc level scoates 11: AM Time: : Versed 2 mg Intravenous Given by Tenisha Tobar RN scoates 11: AM Time: 11: Fentanyl 50 mcg Intravenous Given by Tenisha Tobar RN scoates 11:11 AM HR=61 bpm, ZZDV=119/72 mmhg, UrL1=226.0 % 11:12 AM Clinical Presentation: Unstable angina scoates 11:12 AM Time out performed according to hospital policy scoates 11:13 AM Pressure channel 1 zeroed. 11:14 AM Time: 11:14 .5 ml Lidocaine 2% to right radial Subcutaneous Given by Mati Pedraza MD, [facility] scoates 11:16 AM ultrasound utilized for access scoates 11:16 AM HR=61 bpm, IHRT=916/76 mmhg, SpO2=99.0 %, Resp=21 B/min, Comment=sr 11:18 AM Access obtained by percutaneous puncture. 6Fr 10cm Terumo Glidesheath sheath placed in right Radial artery. [id number] scoates 11:19 AM Time: 11:19 Patient given 200 mcg Nitroglycerin, and 2.5 mg Verapamil Intraarterial by Mati Pedraza MD, [facility]. This is given to reduce risk of vessel spasm and thrombosis. scoates 11:19 AM 5Fr TIG catheter inserted over the wire DNC scoates 11:20 AM wire removed scoates 11:21 AM Recorded Pressure: Ao, CM=885, Condition=Condition 1 (Aorta) Ao 99/73/86 11:21 AM RCA angiography performed in multiple views. scoates 11:21 AM HR=91 bpm, SLZS=887/81 mmhg, SpO2=97.0 % 11:21 AM TIG repositioned into LCA scoates 11:22 AM LCA angiography performed in multiple views. scoates 11:22 AM Recorded Pressure: Ao, FV=171, Condition=Condition 1 (Aorta) Ao 97/76/88 11:24 AM Time: :09 Patient comfortable and pain free: Yes scoates 11:24 AM Time: 11:09LOC: 4 = Oriented but drowsy scoates 11:24 AM Catheter removed scoates 11:25 AM 5Fr Pigtail catheter inserted over the wire DNC scoates 11:25 AM wire removed scoates 11:26 AM Catheter selectively placed in left ventricle scoates 11:26 AM Bolus angiogram of left Ventricle complete: 10 ml/sec for a total of 25 mls scoates 11:26 AM Pressure channel 1 zero failed. 11:26 AM HO=501 bpm, NFRL=215/75 mmhg, SpO2=97 %, Resp=29 B/min 11:26 AM Pressure channel 1 zeroed. 11:26 AM Recorded Pressure: LV, WH=229, Condition=Condition 1 (Left Ventricle) LV 131/6/9 11:27 AM Recorded Pressure: LV, Ao, HR=64, Condition=Condition 1 (Left Ventricle) LV 129/11/16, (Aorta) Ao 119/74/96 11:27 AM Catheter removed scoates 11:27 AM Coronary Dominance: right scoates 11:28 AM Lesion found in Mid LAD. Pre Stenosis: 40 Pre TRACIE Flow: scoates 11:28 AM Lesion found in 1st Marginal. Pre Stenosis: 20 Pre TRACIE Flow: scoates 11:28 AM Lesion found in Right PDA. Pre Stenosis: 30 Pre TRACIE Flow: scoates 11:28 AM Left Main Coronary Artery with 0% stenosis scoates 11:29 AM Proximal Left Anterior Descending Coronary Artery with 0% stenosis. If graft is supplying this territory, 0 % stenosis. scoates 11:29 AM Mid/Distal Left Anterior Descending Coronary Artery and diagonal branches with 40% stenosis. If graft is supplying this area, 0 % stenosis scoates 11:29 AM Circumflex, Obtuse Marginal, Left Posterior Descending, and Left Posterolateral Coronary Arteries with 20 % stenosis. If graft is supplying this area, 0 % stenosis scoates 11:29 AM Right Coronary, Right Posterior Descending Arteries with Right Posterolateral and Acute Marginal branches with 30 % stenosis. If graft is supplying this area, 0 % stenosis scoates 11:29 AM Ramus with 0% stenosis. If graft is supplying this area, 0 % stenosis scoates 11:29 AM Procedure completed at 11:29 scoates 11:29 AM Did you address TRACIE flow and Dominance? Yes scoates 11:29 AM Sign out completed: Radiation Dose 332.18 mGy Fluoro Time: 1.5 Isovue 370 - 200ml contrast 41 ml given by Mati Pedraza MD, [facility]. Complications: NoneCardiac Rehab Consult needed: NoConfirmed administered medications: Yes scoates 11:29 AM Isovue 370 - 200ml,1 Bottle(s) used. scoates 11:29 AM 11 ml air in Vasc Band. scoates 11:30 AM Estimated Blood Loss: minimal scoates 11:30 AM Post ECG Afib scoates 11:30 AM Post Blood Pressure 129/75 scoates 11:30 AM 11:30 Post Pulses Rt Radial 1+ scoates 11:30 AM Information taught Cardiac Cath and Vasc Band scoates 11:30 AM Education needs Procedure, Plan of Care, and Responsibilities of Patient in Care scoates 11:30 AM Learning barriers :None scoates 11:30 AM Education Methods Verbal scoates 11:31 AM Education evaluation Able to repeat information scoates 11:31 AM Site status No bleeding/hematoma - Rt Wrist as reported by Brooks Ramirez RT (R) at 11:31 scoates 11:31 AM Plavix, Effient or Brilinta given No scoates 11:31 AM Delay to floor No scoates 11:31 AM Patient out of room: 11:31 scoates 11:31 AM Family placed in consult room. scoates 11:31 AM Complications: None scoates 11:31 AM Fluoro Time: 1.5 scoates 11:31 AM Isovue 370 - 200ml contrast 41 ml given by Mati Pedraza MD, [facility]. scoates 11:31 AM Radiation Dose 332.18 mGy scoates 11:34 AM Report given to Monica RUGGIERO Pt taken to 2A Room #16. 11:34 scoates Complications Complication None None Hemodynamics Pressures Site Systolic/A Wave Diastolic/V Wave Mean AO 99 73 86 AO 97 76 88 LV 131 6 9 LV 129 11 16 AO 119 74 96 Post Procedure Information Blood Pressure: 129/75 mmHg Rhythm: NSR Post procedural instructions were given Site Checks Time Location Status Staff Sheath In? Note 11:31 AM Rt Wrist No bleeding/hematoma Brooks Ramirez RT (R) Pulses Time Site Pre-Procedure Post-Procedure Note Bilateral DP & PT 2+ Bilateral radial 2+ 11:30:00 AM Rt Radial 1+ Updated by Sera Calero RN on 01/12/2018 11:35:52 AM electronically signed on 01/12/2018 11:36:18 AM with status of Final
--- NOTE | 2018-01-12 13:26 | Electrophysiology Consult Note ---
<Hi Levine - Last Filed: 01/12/18 13:18> Date of Encounter: 01/12/18 Time of Encounter: 13:18 Assessment and Plan (1) Atrial fibrillation with RVR Status: Acute Patient seen to have frequent paroxysmal atrial fibrillation throughout stay. Currently NSR. 24 hour telemetry review shows two runs PAF for several seconds, otherwise he is NSR. TTE 01/07/18-LVEF 55-60%. No pulmonary hypertension. No segmental dysfunction. No significant valvular dysfunction. Moderately enlarged left atrial size. LHC 01/12/18- Mild non-obstructive CAD. Currently on Lopressor 100 mg BID and cardizem 180 mg daily. He is restarting coumadin today after holding for LHC. Discussed with Dr. Garry Bravo, decrease lopressor to 50 mg BID and start sotalol 80 mg BID. Continue cardizem for now. Check EKG every morning. He will require five monitored doses in the hospital. Consider sleep study in the out-pt setting. Baseline EKG shows SR, HR 79, QT/QTc 360/391. Discussion w patient/family: The assessment and plan as outlined above was discussed with the patient and/or family members who expressed understanding and agreement. All questions were answered. Thank you for involving us in the care of your patient. Please call with any questions. History of Present Illness Consult date: 01/12/18 Requesting physician: Reshma Prasad Consult reason: PAF Chief complaint: elevated heart rates, chest pain History of present illness: Mr. Padilla is a 62 year old male with a past medical history of paroxysmal atrial fibrillation on coumadin, HTN, HLD, and DM type II who presented to the hospital for elevated heart rates and chest discomfort. His cardiac work-up revealed frequent small runs of paroxysmal afib. His lopressor was increased and cardizem was added. Frequency of PAF decreased but he continued to have intermittent runs. Electrophysiology consulted to discuss antiarrhythmic therapy. He also underwent 2 day stress test for his chest pain that was found to be abnormal. He underwent LHC today that showed mild non-obstructive CAD. Past Med Surg Social Fam HX - Past Medical History Attestation: Yes The following information was validated with the patient. Medical history: atrial fibrillation, diabetes, hypertension Psychiatric history: no psych history - Social History Smoking Status: Never smoker Smokeless Tobacco Status: No Alcohol use: none Drug use: none Medications and Allergies Aspirin Enteric Coated [Aspirin EC] 81 mg PO DAILY 01/06/18 [History] Furosemide [Lasix] 20 mg PO DAILY PRN 01/06/18 [History] Garlic 500 mg PO DAILY 01/06/18 [History] Glimepiride [Amaryl] 2 mg PO BID 01/06/18 [History] Insulin Glargine,Hum.rec.anlog [Lantus Solostar] 20 unit SQ QPM 01/06/18 [ History] Linagliptin [Tradjenta] 5 mg PO DAILY 01/06/18 [History] Lisinopril [Zestril] 10 mg PO DAILY 01/06/18 [History] Magnesium Oxide [Magnesium] 500 mg PO DAILY 01/06/18 [History] Metformin HCl [Metformin HCl ER] 1,000 mg PO BID 01/06/18 [History] [place]-3/Dha/Epa/Fish Oil [Fish Oil 1,000 mg Softgel] 1,000 mg PO DAILY 01/06/18 [History] Rosuvastatin [Crestor] 20 mg PO HS 01/06/18 [History] Warfarin [Coumadin] 7.5 mg PO MOWEFR 01/06/18 [History] Warfarin [Coumadin] 10 mg PO SUTUTHSA 01/06/18 [History] Diltiazem CD (24hr) [Cardizem CD] 180 mg PO DAILY #30 cap.er.24h 01/13/18 [Rx] Metoprolol [Lopressor] 50 mg PO BID #60 tablet 01/13/18 [Rx] 3 Allergy/AdvReac Type Severity Reaction Status Date / Time Sulfa (Sulfonamide Allergy Unknown See Verified 10/29/17 14:39 Antibiotics) Comments codeine AdvReac Hallucinati Verified 10/29/17 14:40 ng All Systems Review: A 10-system review of systems was performed and is negative for pertinent findings except as documented above in the HPI. Physical Examination Vital Signs, Last 4 Hours Temp Pulse Resp BP Pulse Ox 01/12/18 12:17 98.2 F 63 16 125/76 95 General: Conversant, No Apparent Distress HEENT: Atraumatic, Normocephaly, Mucus Membranes Moist Neck: No JVD, Normal carotid pulses Cardiac: Reg Rate and Rhythm, Normal S1 and S2, No Murmur Lungs: Normal Breath Sounds, No Wheeze, Rales, Rhonchi Neuro: Alert and responsive, No focal deficits noted Abdomen: Soft, Non-Tender Skin: No rashes noted on visualized skin Musculoskeletal: No Chest Wall Tenderness Extremities: No Clubbing, No Cyanosis, No Edema, Normal Pulses Results 01/12/18 05:33 01/12/18 05:33 Lab Results 01/12/18 01/12/18 01/12/18 05:33 05:33 05:33 WBC 6.7 Hgb 13.2 Hct 42.4 Plt Count 173 INR 1.4 Sodium 138 Potassium 4.2 Chloride 102 Carbon Dioxide 30 H BUN 14 Creatinine 1.06 Glucose 200 H Calcium 9.2 Magnesium 2.1 - Imaging and Cardiology Echo: report reviewed - EKG Interpretation EKG results cardiology: personally reviewed Consult Discharge Plan - Plan Instructions: Metoprolol (By mouth), Diltiazem (By mouth), Atrial Fibrillation (DC), Diabetes Mellitus Type 2 in Adults (DC) Referrals: Saritha Stephen MD [Primary Care Provider] - 02/02/18 8:30 am (Please follow up as schedule. It is recommended that you have an outpatient sleep study) Prescriptions: Diltiazem CD (24hr) [Cardizem CD] 180 mg PO DAILY #30 cap.er.24h Metoprolol [Lopressor] 50 mg PO BID #60 tablet <Garry Bravo - Last Filed: 01/13/18 17:39> Date of Encounter: 01/13/18 - Attending Attestation I have personally performed a face to face evaluation on this patient. I have reviewed and agree with the care plan. History and Exam by me shows: Frequent recurrent atrial fibrillation with symptoms. Will initiate sotalol. Assessment and Plan Discussion w patient/family: The assessment and plan as outlined above was discussed with the patient and/or family members who expressed understanding and agreement. All questions were answered. Thank you for involving us in the care of your patient. Please call with any questions. History of Present Illness History of present illness: Mr. Padilla is a 62 year old male All Systems Review: A 10-system review of systems was performed and is negative for pertinent findings except as documented above in the HPI. Results 01/12/18 05:33 01/13/18 03:50 Lab Results 01/13/18 01/13/18 03:50 03:50 INR 1.3 Sodium 137 Potassium 4.6 Chloride 104 Carbon Dioxide 27 BUN 16 Creatinine 1.14 Glucose 246 H Calcium 9.1
[2018-01-12] MEDS ORDERED: *HR* Warfarin 7.5 MG TABLET PO ONE (18:00)
[2018-01-12] MEDS ORDERED: Warfarin perPT PO PRN (18:00)
[2018-01-13 04:11] LABS: INR 1.3; Prothrombin Time 14.1 Seconds (9.4-12.1)
[2018-01-13 04:12] LABS: Hemoglobin A1C 9.2 %
[2018-01-13 04:36] LABS: BUN/Creatinine Ratio 14 (6-26); Blood Urea Nitrogen 16 mg/dL (8-23); Calcium 9.1 mg/dL (8.6-10.3); Carbon Dioxide 27 mEq/L (23-29); Chloride 104 mEq/L (98-107); Chol/HDL Ratio 4.1 (0-4.9); Cholesterol 82 mg/dL (< 200); Glucose 246 mg/dL (70-105); HDL Cholesterol 20 mg/dL (40-59); LDL Cholesterol,Calculated -8 mg/dL (0-99); Osmolality,Calculated 293 (280-300); Potassium 4.6 mEq/L (3.5-5.1); Sodium 137 mEq/L (136-145); Triglycerides 350 mg/dL (< 150); eGFR For African Americans > 60 (> 60); eGFR For Non-African Americans > 60 (> 60)
[2018-01-13] MEDS: *HR* Heparin 5,000 UNIT/ML VIAL SQ SCH (04:58)
[2018-01-13 06:45] VITALS: BP 119/73
[2018-01-13] MEDS: Insulin LISPRO 300 UNITS/3 ML VIAL SQ SCH ×4 (07:54→11:56)
[2018-01-13] MEDS: Magnesium Oxide 400 MG TABLET PO SCH (07:54)
[2018-01-13] MEDS: Diltiazem CD (24hr) 180 MG CAPSULE PO SCH (07:54)
[2018-01-13] MEDS: Aspirin Enteric Coated 81 MG Tablet PO SCH (07:54)
[2018-01-13] MEDS: Insulin DETEMIR 100 UNIT/ML X5UNITS SQ SCH (09:41)
--- NOTE | 2018-01-13 11:27 | Cardiology Progress Note ---
Date of Encounter: 01/13/18 Time of Encounter: 10:00 Assessment and Plan (1) Atrial fibrillation with RVR Current Visit: Yes Status: Acute Per cardiology: -Patient seen to have frequent paroxysmal atrial fibrillation throughout stay. Currently NSR. -TTE 01/07/18-LVEF 55-60%. No pulmonary hypertension. No segmental dysfunction. No significant valvular dysfunction. Moderately enlarged left atrial size. -[facility] 01/12/18- Mild non-obstructive CAD. -Currently on Lopressor 50 mg BID and cardizem 180 mg daily. -On coumadin for anticogaultaion. -Patient is s/p 1 dose of sotalol. Patient states he felt "sick" after sotalol and is refusing further doses. -Baseline EKG shows SR, HR 79, QT/QTc 360/391. -ECG today with SR, HR 61. QT/QTc 422/424ms. -Telemetry with average HR previous 12 hours noted to be 70. Converted to SR around 0600. -Consider sleep study in the out-pt setting. -Continue BB and CCB. -Cardiology will sign off and will follow in outpatient setting. Follow up set. (2) Chest pain Current Visit: Yes Status: Resolved Per cardiology: -C/o typical chest pain symptoms with activity. May be related to afib. He does have multiple cardiac risk factors including family history, HTN, HLD, and DM. -EKG shows SR with no acute changes. Troponin negative. -TTE shows preserved EF. -Had recent abnormal stress. -[facility] this admission with mild, non-obstructive CAD. -Cardiology will sign off and will follow in outpatient setting. Follow up set. Qualifiers: Chest pain type: precordial pain Qualified Code(s): R07.2 - Precordial pain Discussion w patient/family: The assessment and plan as outlined above was discussed with the patient who expressed understanding and agreement. All questions were answered. Thank you for involving us in the care of your patient. Please call with any questions. Discussed and reviewed with . Subjective Principal diagnosis: afib with RVR, Chest pain Interval history: Patient states he feels well this morning, however states he did not feel well after sotalol dose and is refusing to take more. Objective Vital Signs Temperature 98.0 F 01/06/18 15:53 Pulse Rate 92 01/06/18 15:53 Respiratory Rate 18 01/06/18 15:53 Blood Pressure 134/83 01/06/18 15:53 O2 Sat by Pulse Oximetry 98 01/06/18 15:53 Temperature 98.2 F 01/13/18 06:44 Pulse Rate 60 01/13/18 06:44 Respiratory Rate 17 01/13/18 06:44 Blood Pressure 119/73 01/13/18 06:44 O2 Sat by Pulse Oximetry 97 01/13/18 06:44 Oxygen Delivery Oxygen Delivery Room Air General: Conversant, No Apparent Distress HEENT: Atraumatic, Normocephaly, Mucus Membranes Moist Neck: No JVD, Normal carotid pulses Cardiac: Reg Rate and Rhythm, Normal S1 and S2, No Murmur Lungs: Normal Breath Sounds, No Wheeze, Rales, Rhonchi Neuro: Alert and responsive, No focal deficits noted Abdomen: Soft, Non-Tender Skin: No rashes noted on visualized skin Musculoskeletal: No Chest Wall Tenderness Extremities: No Clubbing, No Cyanosis, No Edema, Normal Pulses Results 01/12/18 05:33 01/13/18 03:50 Lab Results Active Medications Acetaminophen (Tylenol) 650 mg PO Q6HR PRN PRN Reason: Mild Pain/Fever Stop: 07/08/18 17:53 Aspirin (Aspirin Ec) 81 mg PO DAILY [facility] Stop: 07/09/18 09:01 Last Admin: 01/13/18 07:54 Dose: 81 mg Dextrose/Water (Dextrose 50% (Syg)) 25 ml IVP AD PRN PRN Reason: Hypoglycemia Stop: 07/09/18 08:03 Diltiazem HCl (Cardizem Cd) 180 mg PO DAILY [facility] Stop: 07/11/18 09:01 Last Admin: 01/13/18 07:54 Dose: 180 mg Glucagon (Glucagen) 1 mg IM ONCE PRN PRN Reason: Hypoglycemia Stop: 07/09/18 08:03 Glucose (Gluctose) 15 gm PO ONCE PRN PRN Reason: Hypoglycemia Stop: 07/09/18 08:03 Glucose (Gluctose) 30 gm PO ONCE PRN PRN Reason: Hypoglycemia Stop: 07/09/18 08:03 Heparin Sodium (Porcine) (Heparin) 5,000 unit SQ Q12HCO [facility] Stop: 01/14/18 18:01 Last Admin: 01/13/18 04:58 Dose: 5,000 unit Hydralazine HCl (Hydralazine) 10 mg IVP Q6HR PRN PRN Reason: SBP>160 Stop: 07/09/18 14:39 Dextrose (Dextrose 5%) 1,000 mls @ 100 mls/hr IVC .Q10H PRN PRN Reason: HYPOGLYCEMIA Stop: 07/09/18 08:03 Insulin Detemir (Levemir) 23 unit SQ BID [facility] Stop: 07/15/18 21:01 Insulin Human Lispro (Humalog) 0 units SQ HS [facility] PRN Reason: Protocol Stop: 07/09/18 21:01 Last Admin: 01/12/18 21:07 Dose: Not Given Insulin Human Lispro (Humalog) 0 units SQ TIDAC [facility] PRN Reason: Protocol Stop: 07/09/18 11:31 Last Admin: 01/13/18 07:54 Dose: 10 units Insulin Human Lispro (Humalog) 7 units SQ TIDWM [facility] Stop: 07/14/18 17:01 Last Admin: 01/13/18 07:54 Dose: 7 units Lisinopril (Zestril) 10 mg PO DAILY [facility] PRN Reason: Protocol Stop: 07/09/18 09:01 Last Admin: 01/13/18 07:54 Dose: 10 mg Magnesium Oxide (Mag-Ox) 400 mg PO DAILY [facility] Stop: 07/09/18 09:01 Last Admin: 01/13/18 07:54 Dose: 400 mg Metoprolol Tartrate (Lopressor) 50 mg PO BID [facility] Stop: 07/14/18 21:01 Last Admin: 01/13/18 07:54 Dose: 50 mg Naloxone HCl (Narcan) 0.4 mg IVP Q2MIN PRN PRN Reason: SEE COMMENTS Stop: 07/08/18 17:53 Rosuvastatin Calcium (Crestor) 20 mg PO [facility] Stop: 07/08/18 21:01 Last Admin: 01/12/18 21:08 Dose: 20 mg Tramadol HCl (Ultram) 50 mg PO Q6HR PRN PRN Reason: Moderate Pain Stop: 07/08/18 17:53 Warfarin Sodium (Coumadin Perpt) 1 each PO DAILY@1800 PRN PRN Reason: SEE COMMENTS Stop: 07/14/18 18:01 Warfarin Sodium (Coumadin) 10 mg PO ONCE ONE Stop: 01/13/18 18:01 Laboratory Tests 01/12/18 01/12/18 01/13/18 05:33 05:33 03:50 Hgb 13.2 INR Potassium 4.6 Creatinine 1.14 Magnesium 2.1 01/13/18 03:50 Hgb INR 1.3 Potassium Creatinine Magnesium - Imaging and Cardiology Chest Xray: report reviewed Echo: report reviewed Cardiac cath: report reviewed - EKG Interpretation EKG results cardiology: personally reviewed (ECG today with SR, HR 61. QT 422ms , QTc 424ms.), other (Telemetry reviewed with average HR previous 12 hours noted to be 70. Patient was a.fib and converted to SR around 0600.) Consult Discharge Plan - Plan Referrals: Saritha Stephen MD [Primary Care Provider] - 02/02/18 8:30 am (Please follow up as schedule..)
--- NOTE | 2018-01-13 13:17 | Discharge Summary ---
Date of Encounter: 01/13/18 - Discharge Diagnosis (1) Abnormal stress test Status: Acute (2) Atrial fibrillation with RVR Status: Acute (3) Diabetes 1.5, managed as type 2 Status: Chronic (4) HTN (hypertension) Status: Chronic Qualifiers: Hypertension type: essential hypertension Qualified Code(s): I10 - Essential (primary) hypertension (5) Morbid obesity Status: Chronic - Discharge Medications Prescriptions: Diltiazem CD (24hr) [Cardizem CD] 180 mg PO DAILY #30 cap.er.24h Metoprolol [Lopressor] 50 mg PO BID #60 tablet Home Medications: Aspirin Enteric Coated [Aspirin EC] 81 mg PO DAILY 01/06/18 [History] Furosemide [Lasix] 20 mg PO DAILY PRN 01/06/18 [History] Garlic 500 mg PO DAILY 01/06/18 [History] Glimepiride [Amaryl] 2 mg PO BID 01/06/18 [History] Insulin Glargine,Hum.rec.anlog [Lantus Solostar] 20 unit SQ QPM 01/06/18 [ History] Linagliptin [Tradjenta] 5 mg PO DAILY 01/06/18 [History] Lisinopril [Zestril] 10 mg PO DAILY 01/06/18 [History] Magnesium Oxide [Magnesium] 500 mg PO DAILY 01/06/18 [History] Metformin HCl [Metformin HCl ER] 1,000 mg PO BID 01/06/18 [History] [place]-3/Dha/Epa/Fish Oil [Fish Oil 1,000 mg Softgel] 1,000 mg PO DAILY 01/06/18 [History] Rosuvastatin [Crestor] 20 mg PO HS 01/06/18 [History] Warfarin [Coumadin] 7.5 mg PO MOWEFR 01/06/18 [History] Warfarin [Coumadin] 10 mg PO SUTUTHSA 01/06/18 [History] Diltiazem CD (24hr) [Cardizem CD] 180 mg PO DAILY #30 cap.er.24h 01/13/18 [Rx] Metoprolol [Lopressor] 50 mg PO BID #60 tablet 01/13/18 [Rx] Allergies/Adverse Reactions: 3 Allergy/AdvReac Type Severity Reaction Status Date / Time Sulfa (Sulfonamide Allergy Unknown See Verified 10/29/17 14:39 Antibiotics) Comments codeine AdvReac Hallucinati Verified 10/29/17 14:40 ng Procedures/tests Complete & Pending: Procedures Performed prior 72 hours Category Date Time Status CL Cardiac Catheterization [CL] Routine Inspector Raw Quartz 01/12/18 07:00 Completed Date of admission: 01/06/18 17:08 Primary care physician: Saritha Stephen MD Consults: 01/06/18 17:53 Consult to Physician [CONS] Routine Consulting Provider: Mati Pedraza Reason for Consult: PAF with RVR lost to follow up chest pain multiple risk factors Time Notified: 17:54 Call Completed: No 01/12/18 08:48 Consult to Electrophysiology (EP) [CONS] Routine Consulting Provider: Electrophysiology Kathy Reason for Consult: atrial fibrillation Call Completed: Yes - Patient Status Condition: Good - Discharge Instructions Follow Up With: Saritha Stephen MD [Primary Care Provider] - 02/02/18 8:30 am (Please follow up as schedule..) Forms: ED Satisfaction Letter Hospital course: Mr. Padilla is a 62 year old male - Time Spent with Patient Total time spent providing and/or coordinating discharge services: - Constitutional Vitals: Temp Pulse Resp BP Pulse Ox 98.2 F 60 17 119/73 97 01/13/18 06:44 01/13/18 06:44 01/13/18 06:44 01/13/18 06:44 01/13/18 06:44 General appearance: Present: A&O X 3, morbidly obese, no acute distress, answers questions appropriately
--- NOTE | 2018-01-13 13:29 | Discharge Summary ---
Date of Encounter: 01/13/18 Time of Encounter: 13:30 - Discharge Diagnosis (1) CAD (coronary artery disease) Priority: Primary Status: Acute Comments: Presented with chest pain associated with activity. Serial troponins negative, EKG without acute ST changes. TTE with preserved EF. Stress test with small size, mild intensity reversible defect possibly secondary to ischemia. [facility] with mild, nonobstructive CAD. Chest pain possibly secondary to A. fib with RVR. Cont ASA, statin. Follow-up with cardiology outpatient Qualifiers: Coronary Disease-Associated Artery/Lesion type: [place] artery [place] vs. transplanted heart: [place] heart Associated angina: without angina Qualified Code(s): I25.10 - Atherosclerotic heart disease of [place] coronary artery without angina pectoris (2) Atrial fibrillation with RVR Priority: Primary Status: Acute Comments: found to have frequent paroxysmal atrial fibrillation throughout stay. Currently NSR. TTE 01/07/18-LVEF 55-60%. No pulmonary hypertension. No segmental dysfunction. No significant valvular dysfunction. Moderately enlarged left atrial size. Evaluated by cardiology who recommended antiarrhythmic therapy with sotalol signs: Patient reported adverse reaction (felt sick) after 1 dose of sotalol and is refusing further antiarrhythmic therapy. In NSR at time of discharge. Continue BB, CCB, Coumadin. Follow-up with Coumadin clinic for INR check. Follow-up with cardiology outpatient. (3) Diabetes 1.5, managed as type 2 Priority: Primary Status: Chronic Comments: per hx. Blood sugars elevated. Hgb A1c 9.2%. Continue home diabetes medication regimen; increase home long-acting. Recommend follow-up with PCP within 1-2 weeks. (4) HTN (hypertension) Priority: Secondary Status: Chronic Comments: per hx. BP controlled. Continue home BP medications. Qualifiers: Hypertension type: essential hypertension Qualified Code(s): I10 - Essential (primary) hypertension (5) Morbid obesity Priority: Secondary Status: Chronic Comments: BMI 47, weight 141 kg. Lifestyle modifications encouraged. Concern for PHU with [place] habitus and A. fib. Recommend outpatient sleep study. Patient advised to follow-up with PCP for referral. - Discharge Medications Prescriptions: Diltiazem CD (24hr) [Cardizem CD] 180 mg PO DAILY #30 cap.er.24h Metoprolol [Lopressor] 50 mg PO BID #60 tablet Home Medications: Aspirin Enteric Coated [Aspirin EC] 81 mg PO DAILY 01/06/18 [History] Furosemide [Lasix] 20 mg PO DAILY PRN 01/06/18 [History] Garlic 500 mg PO DAILY 01/06/18 [History] Glimepiride [Amaryl] 2 mg PO BID 01/06/18 [History] Insulin Glargine,Hum.rec.anlog [Lantus Solostar] 20 unit SQ QPM 01/06/18 [ History] Linagliptin [Tradjenta] 5 mg PO DAILY 01/06/18 [History] Lisinopril [Zestril] 10 mg PO DAILY 01/06/18 [History] Magnesium Oxide [Magnesium] 500 mg PO DAILY 01/06/18 [History] Metformin HCl [Metformin HCl ER] 1,000 mg PO BID 01/06/18 [History] [place]-3/Dha/Epa/Fish Oil [Fish Oil 1,000 mg Softgel] 1,000 mg PO DAILY 01/06/18 [History] Rosuvastatin [Crestor] 20 mg PO HS 01/06/18 [History] Warfarin [Coumadin] 7.5 mg PO MOWEFR 01/06/18 [History] Warfarin [Coumadin] 10 mg PO SUTUTHSA 01/06/18 [History] Diltiazem CD (24hr) [Cardizem CD] 180 mg PO DAILY #30 cap.er.24h 01/13/18 [Rx] Metoprolol [Lopressor] 50 mg PO BID #60 tablet 01/13/18 [Rx] Allergies/Adverse Reactions: 3 Allergy/AdvReac Type Severity Reaction Status Date / Time Sulfa (Sulfonamide Allergy Unknown See Verified 10/29/17 14:39 Antibiotics) Comments codeine AdvReac Hallucinati Verified 10/29/17 14:40 ng Procedures/tests Complete & Pending: Procedures Performed prior 72 hours Category Date Time Status CL Cardiac Catheterization [CL] Routine Valet [place] 01/12/18 07:00 Completed Date of admission: 01/06/18 17:08 Primary care physician: Saritha Stephen MD Consults: 01/06/18 17:53 Consult to Physician [CONS] Routine Consulting Provider: Mati Pedraza Reason for Consult: PAF with RVR lost to follow up chest pain multiple risk factors Time Notified: 17:54 Call Completed: No 01/12/18 08:48 Consult to Electrophysiology (EP) [CONS] Routine Consulting Provider: Electrophysiology Kathy Reason for Consult: atrial fibrillation Call Completed: Yes Discharging clinician: Caryl Philip Anticipated date of discharge: 01/13/18 - Patient Status Disposition: Home, Self-Care Condition: Good Functional capacity at discharge: independent ambulation Overall status at discharge: patient is progressing back to baseline - Discharge Instructions Instructions: Diabetes Mellitus Type 2 in Adults (DC), Atrial Fibrillation (DC) , Diltiazem (By mouth), Metoprolol (By mouth) Follow Up With: Saritha Stephen MD [Primary Care Provider] - 02/02/18 8:30 am (Please follow up as schedule. It is recommended that you have an outpatient sleep study) Forms: ED Satisfaction Letter - Diet and Activity Activity: increase activity as tolerated Diet: advance to your usual diet, diabetic diet Interval History: Seen and examined at bedside. Patient says he had an adverse reaction to sotalol yesterday afternoon. Says he felt sick, became lightheaded and dizzy. He is refusing any further antiarrhythmic therapy wants to be discharged home today. Has no chest pain, no shortness of breath. Says he follows up with the Coumadin clinic for his INR check. Hospital course: See assessment and plan for hospital course - Time Spent with Patient Total time spent providing and/or coordinating discharge services: Less than 30 minutes - Constitutional Vitals: Temp Pulse Resp BP Pulse Ox 98.2 F 60 17 119/73 97 01/13/18 06:44 01/13/18 06:44 01/13/18 06:44 01/13/18 06:44 01/13/18 06:44 General appearance: Present: A&O X 3, morbidly obese, no acute distress, answers questions appropriately - Head Head exam: Present: atraumatic, normocephalic - Eye Eye exam: Present: PERRL, conjuntiva pink, sclera anicteric Pupils: Present: PERRL - Neck Neck exam general surgery: Present: supple, trachea midline. Absent: lymphadenopathy - Respiratory Respiratory exam: Present: CTAB. Absent: accessory muscle use, rales, rhonchi, wheezes - Cardiovascular Cardiovascular exam: Present: RRR, +S1, +S2. Absent: diastolic murmur, gallop, rubs, systolic murmur - GI/Abdominal GI/Abdominal exam: Present: normal bowel sounds, soft, no peritoneal signs. Absent: distended, tenderness - Extremities Exam Extremities exam: Present: warm, radial pulses palpable and symmetrical. Absent : calf tenderness, cyanotic, pedal edema - Neurological Exam Neurological exam: Present: CN II-XII intact, oriented X3, no focal deficits. Absent: pronater drift, facial droop, speech deficit - Skin Skin exam: Present: dry, intact
[2018-01-13] MEDS ORDERED: *HR* Warfarin 10 MG TABLET PO ONE (18:00)
[2018-01-13] MEDS ORDERED: Insulin DETEMIR 100 UNIT/ML X5UNITS SQ SCH (21:00)
--- NOTE | 2018-01-16 11:20 | Electrocardiograph Report ---
[address] [address] Test Date: 2018-01-13 Pat Name: Solo Padilla Department: 112 Room: 2A16 Gender: M Self Pay Specialist: MARIELA : 1955 Requested By: Lidia Garcia Order Number: [id number] Reading MD: Reshma Prasad Measurements Intervals [place] Rate: 61 P: 69 MA: 174 QRS: 4 QRSD: 98 T: 46 QT: 422 QTc: 424 Interpretive Statements SINUS RHYTHM Electronically Signed On 01-16-2018 11:18:34 EST by Reshma Prasad
== END 2018-01-13 13:50 | disposition home or self-care (01) ==
LOC: 2ANU 15:11 → EMEROO 15:11 → 2ANU 17:53
PROVIDERS: ADMIT Internal Medicine Cardiovascular Disease; ATTEND Internal Medicine

== ENCOUNTER 2018-10-05 14:44 | Inpatient (IN) ==
[2018-10-05] MEDS ORDERED: *HR* Metoprolol 5 MG/5 ML VIAL IVP ONE (15:21)
[2018-10-05] MEDS ORDERED: 0.9 % Sodium Chloride 1,000 ML IVC ONE (15:22)
--- NOTE | 2018-10-05 15:39 | Emergency Department Note ---
Disposition Clinical Impression: Atrial fibrillation with RVR Disposition: Admitted As Inpatient Referrals: Saritha Stephen MD [Primary Care Provider] - Forms: ED Satisfaction Letter General Adult HPI - General Chief complaint: ED Arrhythmia/Palpitations Stated complaint: AFIB Time Seen by Provider: 10/05/18 15:00 Source: patient Limitations: no limitations Nursing Notes Reviewed: Yes Vital Signs Reviewed: Yes - History of Present Illness HPI Narrative: 63 year old male presnts to the eD with paroxysmal atrial fibrillation and was most recently admitted to the eD yesterday for atrial fibrillation RVR and started on lopressor and caridzem and returned to normal rate while in the hospital admsision and then discharge home on the with home meidcation restarted. Estee has not missed any home medications. CUrrenlty in triage he was 90s but during examiation at rest he RVR is as high as 160s. PAtinet states that when the tachycardia happens he feels chest pain abd JOCELYN. No infecitous source or TSH abnormalities or note, and patinet states that he doeshav dyspnea associated with it without diaphoresis. Pain Scale: 0 - Related Data Home Medications Medication Instructions Recorded Confirmed Aspirin Enteric Coated [Aspirin EC] 81 mg PO DAILY 01/06/18 10/04/18 Furosemide [Lasix] 20 mg PO DAILY PRN 01/06/18 10/04/18 Garlic 500 mg PO DAILY 01/06/18 10/04/18 Glimepiride [Amaryl] 2 mg PO BID 01/06/18 10/04/18 Insulin Glargine,Hum.rec.anlog 20 unit SQ QPM 01/06/18 10/04/18 [Lantus Solostar] Lisinopril [Zestril] 10 mg PO DAILY 01/06/18 10/04/18 Magnesium Oxide [Magnesium] 500 mg PO DAILY 01/06/18 10/04/18 Metformin HCl [Metformin HCl ER] 1,000 mg PO BID 01/06/18 10/04/18 [place]-3/Dha/Epa/Fish Oil [Fish Oil 1,000 mg PO DAILY 01/06/18 10/04/18 1,000 mg Softgel] Warfarin [Coumadin] 7.5 mg PO MOTUTHSA 01/06/18 10/04/18 Diltiazem CD (24hr) [Cardizem CD] 240 mg PO DAILY 04/26/18 10/04/18 Rosuvastatin Calcium [Crestor] 10 mg PO DAILY 10/04/18 10/04/18 Warfarin [Coumadin] 10 mg PO SUWEFR 10/04/18 10/04/18 Previous Rx's Medication Instructions Recorded Metoprolol [Lopressor] 50 mg PO BID #60 tablet 01/13/18 Allergies Allergy/AdvReac Type Severity Reaction Status Date / Time Sulfa (Sulfonamide Allergy Unknown See Verified 04/25/18 21:45 Antibiotics) Comments codeine AdvReac Hallucinati Verified 04/25/18 21:45 ng Constitutional: Denies: fever, chills, weakness, weight change Eyes: Denies: eye pain, eye discharge, vision change ENT ED: Denies: ear pain, throat pain, dental pain, hearing loss, epistaxis, congestion, dysphagia Cardiovascular: Reports: chest pain, palpitations, dyspnea on exertion. Denies: edema, syncope Respiratory: Denies: cough, dyspnea, wheezes, hemoptysis, stridor Gastrointestinal: Denies: abdominal pain, nausea, vomiting, diarrhea, constipation, hematemesis, melena, hematochezia Genitourinary: Denies: urgency, dysuria, frequency, hematuria Musculoskeletal: Denies: back pain, neck pain, arthralgia, myalgia Integumentary: Denies: rash, abrasion, lesions Neurological: Denies: headache, weakness, numbness, paresthesias, confusion, abnormal gait, vertigo Psychiatric: Denies: anxiety, depression, suicidal thoughts, homicidal thoughts, auditory hallucinations, visual hallucinations Endocrine: Denies: fatigue Hematological/Lymphatic: Denies: easy bleeding, easy bruising Allergic/Immunologic: Denies: facial swelling, urticaria Past Medical History - Past Medical History Medical history: Reports: atrial fibrillation, diabetes, hypertension Surgical history: Reports: vasectomy Psychiatric history: Reports: no psych history - Social History Smoking Status: Former smoker Smokeless Tobacco Status: No Alcohol use: Reports: none Drug use: Reports: none Physical Exam - General Limitations: no limitations General appearance: alert, in no apparent distress - Head Head exam: atraumatic, normocephalic, normal inspection - Eye Eye exam: Present: normal appearance, PERRL, EOMI - Expanded Eye Exam Pupils: Bilateral: reactive - ENT ENT exam: normal exam, normal oropharynx, mucous membranes moist - Expanded ENT Exam External ear exam: Present: normal external inspection Mouth exam: Present: normal external inspection Teeth exam: Present: normal inspection Throat exam: Present: normal inspection - Neck Neck exam: Present: normal inspection, full ROM, trachea midline - Chest Chest inspection: Present: normal inspection, symmetric chest wall rise - Respiratory Respiratory exam: Present: normal lung sounds bilaterally - Cardiovascular Cardiovascular exam: Present: tachycardia (140), irregular rhythm, normal heart sounds - Abdominal Exam Abdominal exam: Present: soft, Non-Tender. Absent: tenderness, distention, guarding, rebound, rigidity - Extremities Exam Extremities exam: Present: normal inspection, full ROM. Absent: tenderness, pedal edema - Expanded Upper Extremity Exam Shoulder exam: Present: normal inspection, full ROM Arm exam: Present: normal inspection, full ROM Elbow exam: Present: normal inspection, full ROM Forearm/Wrist exam: Present: normal inspection, full ROM Hand exam: Present: normal inspection, full ROM Vascular exam: Normal: capillary refill, radial pulse - Expanded Lower Extremity Exam Hip/Pelvis exam: Present: normal inspection, full ROM Upper leg exam: Present: normal inspection, full ROM Knee exam: Present: normal inspection, full ROM Lower leg exam: Present: normal inspection, full ROM Ankle exam: Present: normal inspection, full ROM Foot/toe exam: Present: normal inspection, full ROM Neurovascular/Tendon exam: Absent: motor deficit, sensory deficit, tendon deficit - Back Exam Back exam: Present: normal inspection, full ROM. Absent: tenderness - Neurological Exam Neurological exam: Present: alert, oriented X3 - Expanded Neurological Exam Patient oriented to: Present: person, place, time Coma Scale Eye Opening: Spontaneous Coma Scale Motor Response: Obeys Commands Coma Scale Verbal Response: Oriented Coma Scale Total: 15 - Psychiatric Psychiatric exam: Present: normal affect, normal mood - Skin Skin exam: Present: warm, dry, intact, normal color Course Course Narrative: will do a cardiopulmonary workup in addition to consulting with cards before admission to the hospital. Estee jackson be treated wit lopressor first and if that mobley snot help his rate than we will start him on cardizem with drip. - Consultations Consultation #1: discussed case with Dr. Grant and he will see nilo in consult and reccomds cardizem 10 with drip at 10. admit to medicine. Time: 16:20 Consultation #2: discussed case with Dr. Muniz and accepts to the medicine service Time: 16:26 Vital Signs Temperature 97.9 F 10/05/18 14:53 Pulse Rate 95 10/05/18 14:53 Respiratory Rate 18 10/05/18 14:53 Blood Pressure 135/89 10/05/18 14:53 O2 Sat by Pulse Oximetry 97 10/05/18 14:53 Temperature 97.9 F 10/05/18 15:17 Pulse Rate 145 10/05/18 15:54 Respiratory Rate 16 10/05/18 15:54 Blood Pressure 133/95 10/05/18 15:54 O2 Sat by Pulse Oximetry 96 10/05/18 15:54 Oxygen Delivery Oxygen Delivery Room Air Medical Decision Making - Medical Records Medical records reviewed: Yes I reviewed the patient's medical records. - Lab Data Lab results reviewed: Yes I reviewed the patient's lab results. Result diagrams: 10/05/18 15:05 10/05/18 15:05 Lab Results 10/05/18 10/05/18 10/05/18 Range/Units 15:05 15:05 15:05 WBC 7.9 (4.3-11.1) K/mcL RBC 5.46 (4.19-5.50) M/mcL Hgb 12.5 L (12.9-16.9) g/dL Hct 40.4 (37.5-50.1) % MCV 74.0 L (83.0-100.0) fL MCH 22.9 L (28.0-33.3) pg MCHC 30.9 L (31.6-35.5) g/dL RDW 18.0 H (11.5-14.5) % Plt Count 192 (140-400) K/mcL MPV 8.9 L (9.4-12.4) fL Immature Gran % 0.3 (0-4) % Seg Neutrophils % 62.1 % Lymphocytes % 29.2 % Monocytes % 6.8 % Eosinophils % 1.1 % Basophils % 0.5 % Neutrophils # 4.9 (1.6-8.9) K/mcL Lymphocytes # 2.3 (0.6-4.6) K/mcL Monocytes # 0.5 (0.0-1.3) K/mcL Eosinophils # 0.1 (0.0-0.6) K/mcL Basophils # 0.0 (0.0-0.2) K/mcL PT 24.2 H (9.4-12.1) Seconds INR 2.1 APTT 39.1 H D (26.0-36.0) Seconds Sodium 135 L (136-145) mEq/L Potassium 4.1 (3.5-5.1) mEq/L Chloride 102 (98-107) mEq/L Carbon Dioxide 26 (23-29) mEq/L BUN 17 (8-23) mg/dL Creatinine 1.07 (0.70-1.30) mg/dL Est GFR ( Amer) > 60 (> 60) Est GFR (Non-Af Amer) > 60 (> 60) BUN/Creatinine Ratio 16 (6-26) Glucose 135 H (70-105) mg/dL Calculated Osmolality 284 (280-300) Calcium 9.3 (8.6-10.3) mg/dL Troponin I < 0.03 (< 0.04) ng/mL TSH 4.267 (0.340-5.600) mcIU/mL - Radiology Data Radiology results reviewed: Yes I reviewed the patient's radiology results. - EKG Data EKG #1 EKG attestation: Yes I reviewed and interpreted this EKG. EKG results narrative: afib with rvr with rate of 146. NOS Saurabh. PVCs, border line QT prolonged. chnge from 10/04/18 (NSR rate of 69). 1517 ST segment elevation in: III EKG #2 EKG attestation: Yes I reviewed and interpreted this EKG. EKG results narrative: afib with rvr with rate of 146. NOS Saurabh. PVCs, border line QT prolonged. chnge from 10/04/18 (NSR rate of 69). 1517
[2018-10-05 15:40] LABS: Basophils % 0.5 %; Eosinophils # 0.1 K/mcL (0.0-0.6); Eosinophils % 1.1 %; Hematocrit 40.4 % (37.5-50.1); Hemoglobin 12.5 g/dL (12.9-16.9); Immature Granulocytes % 0.3 % (0-4); Lymphocytes # 2.3 K/mcL (0.6-4.6); Lymphocytes % 29.2 %; Mean Corpuscular HGB Conc 30.9 g/dL (31.6-35.5); Mean Corpuscular Hemoglobin 22.9 pg (28.0-33.3); Mean Platelet Volume 8.9 fL (9.4-12.4); Monocytes # 0.5 K/mcL (0.0-1.3); Monocytes % 6.8 %; Neutrophils # 4.9 K/mcL (1.6-8.9); Platelet Count 192 K/mcL (140-400); Red Blood Count 5.46 M/mcL (4.19-5.50); Segmented Neutrophils % 62.1 %
[2018-10-05 15:47] LABS: INR 2.1; Prothrombin Time 24.2 Seconds (9.4-12.1)
[2018-10-05 15:50] LABS: Activated Partial Thrombo Time 39.1 Seconds (26.0-36.0)
[2018-10-05 15:59] LABS: BUN/Creatinine Ratio 16 (6-26); Blood Urea Nitrogen 17 mg/dL (8-23); Calcium 9.3 mg/dL (8.6-10.3); Carbon Dioxide 26 mEq/L (23-29); Chloride 102 mEq/L (98-107); Glucose 135 mg/dL (70-105); Osmolality,Calculated 284 (280-300); Potassium 4.1 mEq/L (3.5-5.1); Sodium 135 mEq/L (136-145); Troponin I < 0.03 ng/mL (< 0.04); eGFR For Non-African Americans > 60 (> 60)
[2018-10-05 16:13] LABS: Thyroid Stimulating Hormone 4.267 mcIU/mL (0.340-5.600)
--- NOTE | 2018-10-05 16:14 | Electrocardiograph Report ---
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
[2018-10-05] MEDS ORDERED: Naloxone 0.4 MG/ML INJ IVP PRN (18:36)
[2018-10-05] MEDS ORDERED: Furosemide 20 MG TABLET PO PRN (18:40)
[2018-10-05] MEDS ORDERED: *HR* Warfarin 10 MG TABLET PO SCH (18:45)
[2018-10-05] MEDS ORDERED: Ondansetron 4 MG/2 ML VIAL IVP PRN (18:52)
[2018-10-05] MEDS ORDERED: Nitroglycerin 0.4 MG TAB.SUBL SL PRN (18:52)
--- NOTE | 2018-10-05 18:52 | Internal Med History&Physical ---
Date of Encounter: 10/05/18 Time of Encounter: 18:51 Internal Medicine - H&P: HPI History of present illness: Mr. Padilla is a 63 year old male with history of atrial fibrillation, CAD, DM presents for return of palpitations. He was recently admitted and discharged yesterday for atrial fibrillation with RVR. He was given a dose of IV Lopressor at the time and RVR resolved and was discharged home. He is on Cardizem and metoprolol at home. After discharge patient states palpitations returned and he also had slight substernal chest discomfort as well. He had brief episode of shortness of breath with this. Prior to discharge yesterday, HR ran 60-70s on home medications. Of note he did have a left heart cath in Dec this year with normal EF and minimal, nonobstructive CAD in 2 vessels. Patient is compliant with home medications. Chest pain has resolved and shortness of breath. Initi al troponin in ED was negative, EKG showed Afib with RVR. HR currently at bedside is 150s with BP 120/90. He was given dose of IV metoprolol and a cardizem drip was started. Past Med Surg Social Fam HX - Past Medical History Medical history: atrial fibrillation, diabetes, hypertension Psychiatric history: no psych history - Past Surgical History Surgical History: vasectomy - Social History Smoking Status: Former smoker Smokeless Tobacco Status: No Alcohol use: none Drug use: none - Family History Mother Hx Family Cardiac Disorders: No Father Hx Family Cardiac Disorders: No Internal Medicine - H&P: Meds Aspirin Enteric Coated [Aspirin EC] 81 mg PO DAILY 01/06/18 [History] Furosemide [Lasix] 20 mg PO DAILY PRN 01/06/18 [History] Garlic 500 mg PO DAILY 01/06/18 [History] Glimepiride [Amaryl] 2 mg PO BID 01/06/18 [History] Insulin Glargine,Hum.rec.anlog [Lantus Solostar] 20 unit SQ QPM 01/06/18 [History] Lisinopril [Zestril] 10 mg PO DAILY 01/06/18 [History] Magnesium Oxide [Magnesium] 500 mg PO DAILY 01/06/18 [History] Metformin HCl [Metformin HCl ER] 1,000 mg PO BID 01/06/18 [History] [place]-3/Dha/Epa/Fish Oil [Fish Oil 1,000 mg Softgel] 1,000 mg PO DAILY 01/06/18 [History] Warfarin [Coumadin] 7.5 mg PO MOTUTHSA 01/06/18 [History] Metoprolol [Lopressor] 50 mg PO BID #60 tablet 01/13/18 [Rx] Diltiazem CD (24hr) [Cardizem CD] 240 mg PO DAILY 04/26/18 [History] Rosuvastatin Calcium [Crestor] 10 mg PO DAILY 10/04/18 [History] Warfarin [Coumadin] 10 mg PO SUWEFR 10/04/18 [History] Allergy/AdvReac Type Severity Reaction Status Date / Time Sulfa (Sulfonamide Allergy Unknown See Verified 04/25/18 21:45 Antibiotics) Comments codeine AdvReac Hallucinati Verified 04/25/18 21:45 ng All Systems PM: A 10-system review of systems was performed and is negative for pertinent findings except as documented above in the HPI. - Constitutional Vitals: Temp Pulse Resp BP Pulse Ox 97.9 F 107 17 139/103 95 10/05/18 15:17 10/05/18 17:50 10/05/18 17:50 10/05/18 17:50 10/05/18 17:50 Exam: Gen: NAD CVS: irregularly irregular rhythm, tachycardic, no mrg Lungs: CTAB Abd: soft, Nt/ND Ext: 1+ bipedal pitting edema. Internal Med - H&P Results - Labs CBC & Chem 7: 10/05/18 15:05 10/05/18 15:05 Labs: Short CBC 10/05/18 Range/Units 15:05 WBC 7.9 (4.3-11.1) K/mcL Hgb 12.5 L (12.9-16.9) g/dL Hct 40.4 (37.5-50.1) % Plt Count 192 (140-400) K/mcL Neutrophils # 4.9 (1.6-8.9) K/mcL BMP 10/05/18 15:05 Sodium 135 L Potassium 4.1 Chloride 102 Carbon Dioxide 26 BUN 17 Creatinine 1.07 Glucose 135 H Calcium 9.3 Cardiac Enzymes 10/05/18 Range/Units 15:05 Troponin I < 0.03 (< 0.04) ng/mL - Impressions ITS Impressions Chest X-Ray 10/05/18 15:05 IMPRESSION: No acute cardiopulmonary disease D/ / Daniel Sadler MD / Daniel Sadler MD Interpreting Provider: Daniel Sadler MD - Assessment and plan (1) Atrial fibrillation with RVR Current Visit: Yes Status: Acute Assessment and plan: Patient on Cardizem drip, resume home metoprolol 50 mg BID for now. Lopressor 5 mg IV Q6H prn. Cardiology consulted, recommendations appreciated. (2) Chest pain Current Visit: No Status: Resolved Assessment and plan: Likely related to afib with RVR. HR at bedside 150s. BP is within normal limits. Initial troponin negative. EKG showed Afib with RVR. Recheck Troponin, patient currently on coumadin INR therapeutic. Qualifiers: Chest pain type: unspecified Qualified Code(s): R07.9 - Chest pain, unsp ecified (3) Atrial fibrillation, chronic Current Visit: No Status: Acute (4) CAD (coronary artery disease) Current Visit: No Status: Acute Assessment and plan: Resume home medications. Qualifiers: Coronary Disease-Associated Artery/Lesion type: unspecified vessel or lesion type [place] vs. transplanted heart: unspecified whether [place] or transplanted heart Associated angina: angina presence unspecified Qualified Code(s): I25.10 - Atherosclerotic heart disease of [place] coronary artery without angina pectoris (5) Diabetes mellitus Current Visit: No Status: Chronic Assessment and plan: Start basal insulin, sliding scale, diabetic diet. Qualifiers: Diabetes mellitus type: type 2 Diabetes mellitus medical terminologist insulin use: with mcc use Diabetes mellitus complication status: with unspecified complications Qualified Code(s): E11.8 - Type 2 diabetes mellitus with unspecified complications; Z79.4 - medical terminologist (current) use of insulin (6) HTN (hypertension) Current Visit: No Status: Chronic Qualifiers: Hypertension type: essential hypertension Qualified Code(s): I10 - Essenti al (primary) hypertension (7) Hyperlipidemia Current Visit: No Status: Chronic Qualifiers: Hyperlipidemia type: unspecified Qualified Code(s): E78.5 - Hyperlipidemia, unspecified (8) Morbid obesity Current Visit: No Status: Chronic (9) DVT prophylaxis Current Visit: No Status: Acute Assessment and plan: On coumadin. - Time Spent With Patient Total time spent is greater than 50% in coordination of care (as documented) at patient's floor/unit and/or counseling patient:
[2018-10-05] MEDS ORDERED: *HR* Metoprolol 5 MG/5 ML VIAL IVP PRN (18:55)
[2018-10-05] MEDS ORDERED: Insulin DETEMIR 100 UNIT/ML X5UNITS SQ SCH (21:00)
[2018-10-05] MEDS: Insulin LISPRO 300 UNITS/3 ML VIAL SQ SCH (21:09)
[2018-10-05] MEDS ORDERED: 0.9 % Sodium Chloride 500 ML ONE (21:11)
[2018-10-05 22:30] LABS: Troponin I < 0.03 ng/mL (< 0.04)
[2018-10-06 04:11] LABS: Basophils # 0.1 K/mcL (0.0-0.2); Basophils % 0.8 %; Eosinophils # 0.1 K/mcL (0.0-0.6); Eosinophils % 1.9 %; Hemoglobin 12.5 g/dL (12.9-16.9); Immature Granulocytes % 0.3 % (0-4); Lymphocytes # 2.1 K/mcL (0.6-4.6); Lymphocytes % 32.7 %; Mean Corpuscular HGB Conc 30.5 g/dL (31.6-35.5); Mean Corpuscular Hemoglobin 22.6 pg (28.0-33.3); Mean Corpuscular Volume 74.1 fL (83.0-100.0); Mean Platelet Volume 8.5 fL (9.4-12.4); Monocytes # 0.4 K/mcL (0.0-1.3); Monocytes % 6.4 %; Neutrophils # 3.7 K/mcL (1.6-8.9); Platelet Count 174 K/mcL (140-400); Red Blood Count 5.53 M/mcL (4.19-5.50); Segmented Neutrophils % 57.9 %
[2018-10-06 04:31] LABS: BUN/Creatinine Ratio 14 (6-26); Blood Urea Nitrogen 15 mg/dL (8-23); Calcium 9.1 mg/dL (8.6-10.3); Carbon Dioxide 27 mEq/L (23-29); Chloride 102 mEq/L (98-107); Glucose 179 mg/dL (70-105); Osmolality,Calculated 287 (280-300); Potassium 4.2 mEq/L (3.5-5.1); Sodium 136 mEq/L (136-145); eGFR For Non-African Americans > 60 (> 60)
[2018-10-06] MEDS: Magnesium Oxide 400 MG TABLET PO SCH (07:31)
[2018-10-06] MEDS: Aspirin Enteric Coated 81 MG Tablet PO SCH (07:31)
--- NOTE | 2018-10-06 07:45 | Internal Med Progress Note ---
Hospitalist Progress Note - Encounter Date of Encounter: 10/06/18 Time of Encounter: 08:13 - Subjective Interval History: Overnight states that she saw hiim sleeping and he had O2 desat to 70s temporarily but improved. He states overall this morning he feels well. Cardizem drip was briefly discontinued overnight but patient HR went up to 150s. He was restarted on Cardizem drip. He currently denies CP, SOB, N/V, palpitations. - Exam Vitals: Temp Pulse Resp BP Pulse Ox 98.2 F 78 18 115/73 98 10/06/18 03:39 10/06/18 03:39 10/06/18 03:39 10/06/18 03:39 10/06/18 03:39 Exam: Gen: NAD CVS: irregularly irregular rhythm, tachycardic, no mrg Lungs: CTAB Abd: soft, Nt/ND Ext: 1+ bipedal pitting edema. - Assessment and Plan (1) Atrial fibrillation with RVR Current Visit: Yes Status: Acute Assessment and Plan: Patient on Cardizem drip, resume home metoprolol 50 mg BID for now. Lopressor 5 mg IV Q6H prn. Running 140s-150s on tele this AM with BP in normal limits. Cardiology consulted, recommendations appreciated. (2) Chest pain Current Visit: No Status: Resolved Assessment and Plan: Likely related to afib with RVR. HR at bedside 150s. BP is within normal limits. Initial troponin negative. EKG showed Afib with RVR. Troponin negative x2 (3) Atrial fibrillation, chronic Current Visit: No Status: Acute (4) CAD (coronary artery disease) Current Visit: No Status: Acute Assessment and Plan: Resume home medications. (5) Diabetes mellitus Current Visit: No Status: Chronic Assessment and Plan: Start basal insulin, sliding scale, diabetic diet. (6) HTN (hypertension) Current Visit: No Status: Chronic (7) Hyperlipidemia Current Visit: No Status: Chronic (8) Morbid obesity Current Visit: No Status: Chronic (9) DVT prophylaxis Current Visit: No Status: Acute Assessment and Plan: On coumadin. (10) Obstructive sleep apnea Current Visit: Yes Status: Acute Assessment and Plan: CPAP at night ordered. - Time Spent with Patient Total time spent is greater than 50% in coordination of care (as documented) at patient's floor/unit and/or counseling patient: Internal Medicine: Result - Labs CBC & Chem 7: 10/06/18 03:50 10/06/18 03:50 Labs: Short CBC 10/05/18 10/06/18 Range/Units 15:05 03:50 WBC 7.9 6.4 (4.3-11.1) K/mcL Hgb 12.5 L 12.5 L (12.9-16.9) g/dL Hct 40.4 41.0 (37.5-50.1) % Plt Count 192 174 (140-400) K/mcL Neutrophils # 4.9 3.7 (1.6-8.9) K/mcL BMP 10/05/18 10/06/18 15:05 03:50 Sodium 135 L 136 Potassium 4.1 4.2 Chloride 102 102 Carbon Dioxide 26 27 BUN 17 15 Creatinine 1.07 1.04 Glucose 135 H 179 H Calcium 9.3 9.1 Cardiac Enzymes 10/05/18 10/05/18 Range/Units 15:05 21:43 Troponin I < 0.03 < 0.03 (< 0.04) ng/mL - ABG Interpretation ABG results: PT/INR, D-dimer PT 24.2 Seconds (9.4-12.1) H 10/05/18 15:05 - Impressions Impressions Chest X-Ray 10/05/18 15:05 IMPRESSION: No acute cardiopulmonary disease D/ / Daniel Sadler MD / Daniel Sadler MD Interpreting Provider: Daniel Sadler MD Consult Discharge Plan - Plan Referrals: Saritha Stephen MD [Primary Care Provider] - __ (2) Chest pain Qualifiers: Chest pain type: unspecified Qualified Code(s): R07.9 - Chest pain, unspecified (4) CAD (coronary artery disease) Qualifiers: Coronary Disease-Associated Artery/Lesion type: unspecified vessel or lesion type [place] vs. transplanted heart: unspecified whether [place] or transplanted heart Associated angina: angina presence unspecified Qualified Code(s): I25.10 - Atherosclerotic heart disease of [place] coronary artery without angina pectoris (5) Diabetes mellitus Qualifiers: Diabetes mellitus type: type 2 Diabetes mellitus long-term insulin use: with computer terminal operator use Diabetes mellitus complication status: with unspecified complications Qualified Code(s): E11.8 - Type 2 diabetes mellitus with unspecified complications; Z79.4 - [facility] (current) use of insulin (6) HTN (hypertension) Qualifiers: Hypertension type: essential hypertension Qualified Code(s): I10 - Essential (primary) hypertension (7) Hyperlipidemia Qualifiers: Hyperlipidemia type: unspecified Qualified Code(s): E78.5 - Hyperlipidemia, unspecified
[2018-10-06] MEDS: Insulin LISPRO 300 UNITS/3 ML VIAL SQ SCH ×4 (07:56→20:26)
[2018-10-06 08:26] LABS: Magnesium 2.1 mg/dL (1.6-2.6)
--- NOTE | 2018-10-06 11:03 | Cardiology Consult Note ---
<Hi Levine - Last Filed: 10/06/18 11:53> Date of Encounter: 10/06/18 Time of Encounter: 10:00 Assessment and Plan (1) Atrial fibrillation with RVR Current Visit: Yes Status: Acute Recurrent atrial fibrillation with RVR. H/o PAF. Previously well controlled on cardizem 240 mg daily and metoprolol 100 mg BID at home. (confirmed with pt.) Intolerant to sotalol in the past. Declines alternative antiarrhythmic. Recommend rate control. Increase cardizem to 360 mg daily. Increase metoprolol tartrate back to home dose of 100 mg BID. Monitor telemetry. Avg HR 95 bpm. Noted HR 50 last night while sleeping on cardizem gtt and after IV boluses. Recommend Pt wears c-pap here. We will continue to monitor telemetry with you. Prior cardiac work-up- TTE 12/2017- EF 55-60%, no significant valvular disease, Moderate LAE. No PAH. LHC 12/2017- mild non-obstructive CAD. TSH- normal. (2) CAD (coronary artery disease) Current Visit: No Status: Acute Qualifiers: Coronary Disease-Associated Artery/Lesion type: [place] artery [place] vs. transplanted heart: unspecified whether [place] or transplanted heart Associated angina: angina presence unspecified Qualified Code(s): I25.10 - Atherosclerotic heart disease of [place] coronary artery without angina pectoris Discussion w patient/family: The assessment and plan as outlined above was discussed with the patient and/or family members who expressed understanding and agreement. All questions were answered. Thank you for involving us in the care of your patient. Please call with any questions. History of Present Illness Consult date: 10/06/18 Requesting physician: Wendy Porter Consult reason: Atrial fibrillation with RVR Chief complaint: Fatigue, chest tightness. History of present illness: Mr. Padilla is a 63 year old male with past medical history of PHU on c-pap, atrial fibrillation with RVR on coumadin, DM type II, and obesity. He presented with the c/o elevated heart rates. C/o fatigue and chest tightness when his HR is el evated. Denies SOB or palpitations. Reports having cold symptoms three weeks ago and he lost seven lbs. He was found to have atrial fibrillation with RVR in the ED. He was admitted 10/03/18 with atrial fibrillation with RVR also. He was suppose to follow with cardiology out-pt tomorrow for further recommendations. No changes made during his stay as he was rate controlled on home meds. He was rate controlled on cardizem and lopressor at that time. He has a history of being started on sotalol earlier this year. He states he had a very bad experience due to side effects. He was seen by electrophysiology out patient and discussed trying alternative anti-arrhythmic and he declined. He states he still would not like to try anything else if he doesn't have to. Past Med Surg Social Fam HX - Past Medical History Medical history: atrial fibrillation, diabetes, hypertension Additional medical history: DDD Psychiatric history: no psych history - Past Surgical History Surgical History: vasectomy - Social History Smoking Status: Former smoker Smokeless Tobacco Status: No Alcohol use: none Drug use: none - Family History Mother Hx Family Cardiac Disorders: No Father Hx Family Cardiac Disorders: No Medications and Allergies Aspirin Enteric Coated [Aspirin EC] 81 mg PO DAILY 01/06/18 [History] Furosemide [Lasix] 20 mg PO DAILY PRN 01/06/18 [History] Garlic 500 mg PO DAILY 01/06/18 [History] Glimepiride [Amaryl] 2 mg PO BID 01/06/18 [History] Insulin Glargine,Hum.rec.anlog [Lantus Solostar] 20 unit SQ QPM 01/06/18 [History] Lisinopril [Zestril] 10 mg PO DAILY 01/06/18 [History] Magnesium Oxide [Magnesium] 500 mg PO DAILY 01/06/18 [History] Metformin HCl [Metformin HCl ER] 1,000 mg PO BID 01/06/18 [History] [place]-3/Dha/Epa/Fish Oil [Fish Oil 1,000 mg Softgel] 1,000 mg PO DAILY 01/06/18 [History] Warfarin [Coumadin] 7.5 mg PO MOTUTHSA 01/06/18 [History] Metoprolol [Lopressor] 50 mg PO BID #60 tablet 01/13/18 [Rx] Diltiazem CD (24hr) [Cardizem CD] 240 mg PO DAILY 04/26/18 [History] Rosuvastatin Calcium [Crestor] 10 mg PO DAILY 10/04/18 [History] Warfarin [Coumadin] 10 mg PO SUWEFR 10/04/18 [History] Allergy/AdvReac Type Severity Reaction Status Date / Time Sulfa (Sulfonamide Allergy Unknown See Verified 04/25/18 21:45 Antibiotics) Comments codeine AdvReac Hallucinati Verified 04/25/18 21:45 ng All Systems Review: The remainder of the systems were reviewed and are negative Physical Examination Vital Signs, Last 4 Hours Temp Pulse Resp BP Pulse Ox 10/06/18 10:59 97.8 F 72 16 112/62 92 10/06/18 07:46 97.7 F 151 16 133/94 98 General: Conversant, No Apparent Distress HEENT: Atraumatic, Normocephaly, Mucus Membranes Moist Neck: No JVD, Normal carotid pulses Cardiac: Other (Irregularly irregular) Lungs: Normal Breath Sounds, No Wheeze, Rales, Rhonchi Neuro: Alert and responsive, No focal deficits noted Abdomen: Soft, Non-Tender Skin: No rashes noted on visualized skin Musculoskeletal: No Chest Wall Tenderness Extremities: No Clubbing, No Cyanosis, Normal Pulses, Other (Trace edema BLE) Results 10/06/18 03:50 10/06/18 03:50 Lab Results 10/05/18 10/05/18 10/05/18 15:05 15:05 15:05 WBC 7.9 Hgb 12.5 L Hct 40.4 Plt Count 192 INR 2.1 APTT 39.1 H D Sodium 135 L Potassium 4.1 Chloride 102 Carbon Dioxide 26 BUN 17 Creatinine 1.07 Glucose 135 H Calcium 9.3 Magnesium Troponin I < 0.03 TSH 4.267 10/05/18 10/06/18 10/06/18 21:43 03:50 03:50 WBC 6.4 Hgb 12.5 L Hct 41.0 Plt Count 174 INR APTT Sodium 136 Potassium 4.2 Chloride 102 Carbon Dioxide 27 BUN 15 Creatinine 1.04 Glucose 179 H Calcium 9.1 Magnesium 2.1 Troponin I < 0.03 TSH - Imaging and Cardiology Stress Test: report reviewed Echo: report reviewed Cardiac cath: report reviewed - EKG Interpretation EKG results cardiology: personally reviewed Consult Discharge Plan - Plan Referrals: Saritha Stephen MD [Primary Care Provider] - 10/11/18 11:00 am <Reshma Prasad - Last Filed: 10/06/18 14:08> Date of Encounter: 10/06/18 - Attending Attestation I have personally performed a face to face evaluation on this patient. I have reviewed and agree with the care plan. Mr. Padilla presents with palpitations consistent with AFIB RVR. Known history of AFIB. Not compliant with CPAP. Feels tired when in AFIB. Previously tried sotalol but had intolerance and stopped it. Vital signs reviewed. Exam: AAOx3, obese, NAD, no cardiac murmurs, trace LE edema ECG: AFIB RVR Echo 12/2017 demonstrates EF 55-60%, moderate LAE Impression: 1. AFIB RVR: Discussed in detail with patient and family member accompanying him. There are 3 options. He has the option of maintaining AFIB with rate control. Otherwise we could consider DCCV although there is a likelihood that he will not maintain NSR. Alternatively, can consider antiarrhythmic drug therapy. The patient would like to think about his options. He is anticoagulated with coumadin. Encouraged compliance with CPAP. Troponin negative, TSH normal. Assessment and Plan Discussion w patient/family: The assessment and plan as outlined above was discussed with the patient and/or family members who expressed understanding and agreement. All questions were answered. Thank you for involving us in the care of your patient. Please call with any questions. History of Present Illness History of present illness: Mr. Padilla is a 63 year old male All Systems Review: The remainder of the systems were reviewed and are negative Physical Examination Vital Signs, Last 4 Hours Temp Pulse Resp BP Pulse Ox 10/06/18 10:59 97.8 F 72 16 112/62 92 Results 10/06/18 03:50 10/06/18 03:50 Lab Results 10/05/18 10/05/18 10/05/18 15:05 15:05 15:05 WBC 7.9 Hgb 12.5 L Hct 40.4 Plt Count 192 INR 2.1 APTT 39.1 H D Sodium 135 L Potassium 4.1 Chloride 102 Carbon Dioxide 26 BUN 17 Creatinine 1.07 Glucose 135 H Calcium 9.3 Magnesium Troponin I < 0.03 TSH 4.267 10/05/18 10/06/18 10/06/18 21:43 03:50 03:50 WBC 6.4 Hgb 12.5 L Hct 41.0 Plt Count 174 INR APTT Sodium 136 Potassium 4.2 Chloride 102 Carbon Dioxide 27 BUN 15 Creatinine 1.04 Glucose 179 H Calcium 9.1 Magnesium 2.1 Troponin I < 0.03 TSH
[2018-10-06] MEDS: Diltiazem CD (24hr) 180 MG CAPSULE PO SCH (12:11)
[2018-10-06 15:18] LABS: INR 1.9; Prothrombin Time 21.5 Seconds (9.4-12.1)
--- NOTE | 2018-10-06 15:48 | Event Note ---
Date of Encounter: 10/06/18 Time of Encounter: 15:47 - Cardiology Event Note Patient states he is now agreeable to anti-arrhythmic therapy. Unfortunately, he is not a candidate for multiple therapies due to history of CAD. We recommend attempting rate control and f/u with electrophysiology to discuss options. Intermittent elevated HR noted. Lopressor increased for this evening.
[2018-10-06] MEDS: Furosemide 20 MG TABLET PO SCH (17:00)
[2018-10-06] MEDS ORDERED: Warfarin perPT PO PRN (18:00)
[2018-10-06] MEDS ORDERED: *HR* Warfarin 7.5 MG TABLET PO SCH (18:40)
[2018-10-06] MEDS ORDERED: Insulin DETEMIR 100 UNIT/ML X5UNITS SQ SCH (21:00)
[2018-10-07 04:09] LABS: Basophils # 0.1 K/mcL (0.0-0.2); Basophils % 0.6 %; Eosinophils # 0.1 K/mcL (0.0-0.6); Eosinophils % 1.7 %; Hematocrit 40.5 % (37.5-50.1); Hemoglobin 12.3 g/dL (12.9-16.9); Immature Granulocytes % 0.4 % (0-4); Lymphocytes # 2.4 K/mcL (0.6-4.6); Lymphocytes % 29.1 %; Mean Corpuscular HGB Conc 30.4 g/dL (31.6-35.5); Mean Corpuscular Hemoglobin 22.6 pg (28.0-33.3); Mean Corpuscular Volume 74.4 fL (83.0-100.0); Mean Platelet Volume 8.7 fL (9.4-12.4); Monocytes # 0.6 K/mcL (0.0-1.3); Monocytes % 7.6 %; Platelet Count 184 K/mcL (140-400); Red Blood Count 5.44 M/mcL (4.19-5.50); Red Cell Distribution Width 17.1 % (11.5-14.5); Segmented Neutrophils % 60.6 %
[2018-10-07 04:23] LABS: INR 2.3; Prothrombin Time 25.4 Seconds (9.4-12.1)
[2018-10-07 04:29] LABS: BUN/Creatinine Ratio 13 (6-26); Blood Urea Nitrogen 15 mg/dL (8-23); Calcium 8.8 mg/dL (8.6-10.3); Carbon Dioxide 27 mEq/L (23-29); Chloride 102 mEq/L (98-107); Glucose 190 mg/dL (70-105); Osmolality,Calculated 288 (280-300); Potassium 4.4 mEq/L (3.5-5.1); Sodium 136 mEq/L (136-145); eGFR For Non-African Americans > 60 (> 60)
[2018-10-07 07:28] VITALS: BP 129/75
[2018-10-07] MEDS: Diltiazem CD (24hr) 180 MG CAPSULE PO SCH (07:47)
[2018-10-07] MEDS: Aspirin Enteric Coated 81 MG Tablet PO SCH (07:48)
[2018-10-07] MEDS: Magnesium Oxide 400 MG TABLET PO SCH (07:48)
[2018-10-07] MEDS: Furosemide 20 MG TABLET PO SCH (07:48)
[2018-10-07] MEDS: Insulin LISPRO 300 UNITS/3 ML VIAL SQ SCH (07:51)
--- NOTE | 2018-10-07 08:23 | Discharge Summary ---
Orders not resulted at time of discharge: Pending orders 10/07/18 08:02 EKG [ECG 12 lead ECG] [ECG] Routine 10/08/18 04:00 Basic Metabolic Panel AM 0400 Complete Blood Count [HEME] AM 0400 Date of Encounter: 10/07/18 Time of Encounter: 08:18 - Discharge Diagnosis (1) Atrial fibrillation with RVR Priority: Primary Status: Acute (2) Atrial fibrillation, chronic Priority: Secondary Status: Acute (3) CAD (coronary artery disease) Priority: Secondary Status: Acute Qualifiers: Coronary Disease-Associated Artery/Lesion type: [place] artery [place] vs. transplanted heart: unspecified whether [place] or transplanted heart Associated angina: angina presence unspecified Qualified Code(s): I25.10 - Atherosclerotic heart disease of [place] coronary artery without angina pectoris (4) Diabetes mellitus Priority: Secondary Status: Chronic Qualifiers: Diabetes mellitus type: type 2 Diabetes mellitus adjunct faculty for medical terminology insulin use: with adjunct faculty for medical terminology use Diabetes mellitus complication status: with unspecified complications Qualified Code(s): E11.8 - Type 2 diabetes mellitus with unspecified complications; Z79.4 - FPC (current) use of insulin (5) HTN (hypertension) Priority: Secondary Status: Chronic Qualifiers: Hypertension type: essential hypertension Qualified Code(s): I10 - Essential (primary) hypertension (6) Hyperlipidemia Priority: Secondary Status: Chronic Qualifiers: Hyperlipidemia type: unspecified Qualified Code(s): E78.5 - Hyperlipidemia, unspecified (7) Morbid obesity Priority: Secondary Status: Chronic (8) DVT prophylaxis Priority: Secondary Status: Acute (9) Obstructive sleep apnea Priority: Secondary Status: Acute Hospital course: Mr. Padilla is a 63 year old male with history of atrial fibrillation, CAD, DM presents for return of palpitations. He was recently admitted and discharged yesterday for atrial fibrillation with RVR. He was given a dose of IV Lopressor at the time and RVR resolved and was discharged home. He is on Cardizem and metoprolol at home. After discharge patient states palpitations returned and he also had slight substernal chest discomfort as well. He had brief episode of shortness of breath with this. Prior to discharge yesterday, HR ran 60-70s on home medications. Of note he did have a left heart cath in Dec this year with normal EF and minimal, nonobstructive CAD in 2 vessels. Patient is compliant with home medications. Chest pain has resolved and shortness of breath. Initial troponin in ED was negative, EKG showed Afib with RVR. HR currently at bedside is 150s with BP 120/90. He was given dose of IV metoprolol and a cardizem drip was started. He was not a candidate for anti-arrhythmic therapy due to history of CAD. He was continued with rate control strategy and he was transitioned back to PO Cardizem and metoprolol with Cardizem dose being increased. He was back to sinus rhythm with HR running 60s-70s bpm with normal BP. Cardiology cleared patient for discharge with close follow-up as outpatient. Patient agreeable to this. - Time Spent with Patient Total time spent providing and/or coordinating discharge services: - Discharge Medications Home Medications: Aspirin Enteric Coated [Aspirin EC] 81 mg PO DAILY 01/06/18 [History] Furosemide [Lasix] 20 mg PO DAILY PRN 01/06/18 [History] Garlic 500 mg PO DAILY 01/06/18 [History] Glimepiride [Amaryl] 2 mg PO BID 01/06/18 [History] Insulin Glargine,Hum.rec.anlog [Lantus Solostar] 20 unit SQ QPM 01/06/18 [History] Lisinopril [Zestril] 10 mg PO DAILY 01/06/18 [History] Magnesium Oxide [Magnesium] 500 mg PO DAILY 01/06/18 [History] Metformin HCl [Metformin HCl ER] 1,000 mg PO BID 01/06/18 [History] [place]-3/Dha/Epa/Fish Oil [Fish Oil 1,000 mg Softgel] 1,000 mg PO DAILY 01/06/18 [History] Warfarin [Coumadin] 7.5 mg PO MOTUTHSA 01/06/18 [History] Rosuvastatin Calcium [Crestor] 10 mg PO DAILY 10/04/18 [History] Warfarin [Coumadin] 10 mg PO SUWEFR 10/04/18 [History] Diltiazem HCl [Cardizem Cd] 360 mg PO DAILY 30 Days #30 cap.er.24h 10/07/18 [Rx] Metoprolol [Lopressor] 100 mg PO BID tablet 10/07/18 [Rx] Allergies/Adverse Reactions: Allergy/AdvReac Type Severity Reaction Status Date / Time Sulfa (Sulfonamide Allergy Unknown See Verified 04/25/18 21:45 Antibiotics) Comments codeine AdvReac Hallucinati Verified 04/25/18 21:45 ng Date of admission: 10/05/18 19:00 Primary care physician: Saritha Stephen MD Consults: 10/05/18 16:18 Consult to Cardiology [CONS] Stat Comment: Consulting Provider: Cardiology Gray Reason for Consult: afib rvr Time Notified: 16:19 Call Completed: Yes Discharging clinician: Wendy Porter - Constitutional Vitals: Temp Pulse Resp BP Pulse Ox 98.6 F 72 12 129/75 94 10/07/18 07:26 10/07/18 07:26 10/07/18 07:26 10/07/18 07:26 10/07/18 07:26 General appearance: Present: A&O X 3 Exam: . - Head Head exam: Present: atraumatic, normocephalic - Eye Eye exam: Present: PERRL, conjuntiva pink, sclera anicteric Pupils: Present: PERRL - Neck Neck exam general surgery: Present: supple, trachea midline. Absent: lymphadenopathy - Respiratory Respiratory exam: Present: CTAB. Absent: accessory muscle use, rales, rhonchi, wheezes - Cardiovascular Cardiovascular exam: Present: RRR, +S1, +S2. Absent: diastolic murmur, gallop, rubs, systolic murmur - GI/Abdominal GI/Abdominal exam: Present: normal bowel sounds, soft, no peritoneal signs. Absent: distended, tenderness - Extremities Exam Extremities exam: Present: warm, radial pulses palpable and symmetrical. Absen t: calf tenderness, cyanotic, pedal edema - Neurological Exam Neurological exam: Present: CN II-XII intact, oriented X3, no focal deficits. Absent: pronater drift, facial droop, speech deficit - Skin Skin exam: Present: dry, intact - Patient Status Disposition: Home, Self-Care Condition: Good Functional capacity at discharge: independent ambulation Overall status at discharge: patient is back to baseline - Discharge Instructions Follow Up With: Saritha Stephen MD [Primary Care Provider] - 10/11/18 11:00 am - Diet and Activity Activity: return to work once cleared by your PCP/specialist Diet: diabetic diet, low fat, low cholesterol, low salt diet
--- NOTE | 2018-10-07 10:01 | Cardiology Progress Note ---
Date of Encounter: 10/07/18 Time of Encounter: 08:00 Assessment and Plan (1) Atrial fibrillation with RVR Current Visit: Yes Status: Acute Recurrent atrial fibrillation with RVR. H/o PAF. Converted to NSR on increased cardizem dose last night. Previously well controlled on cardizem 240 mg daily and metoprolol 100 mg BID at home. (Confirmed with pt.) Cardizem increased to 360 mg daily. Continue metoprolol 100 mg BID. Intolerant to sotalol in the past. Declined alternative antiarrhythmic but now is agreeable if needed. On coumadin therapy for emt intermediate CVA preventon. Goal INR 2.0-3.0. Recommend f/u with EP 2-3 weeks to discuss possible antiarrhythmic therapy. Cardiology will sign off. Prior cardiac work-up- TTE 12/2017- EF 55-60%, no significant valvular disease, Moderate LAE. No PAH. LHC 12/2017- mild non-obstructive CAD. TSH- normal. (2) CAD (coronary artery disease) Current Visit: No Status: Acute H/o mild non-obstructive CAD on [facility] earlier this year. Cntinue asa, statin, and bb. Qualifiers: Coronary Disease-Associated Artery/Lesion type: [place] artery [place] vs. transplanted heart: unspecified whether [place] or transplanted heart Associated angina: angina presence unspecified Qualified Code(s): I25.10 - Atherosclerotic heart disease of [place] coronary artery without angina pectoris Discussion w patient/family: The assessment and plan as outlined above was discussed with the patient and/or family members who expressed understanding and agreement. All questions were answered. Thank you for involving us in the care of your patient. Please call with any questions. Subjective Principal diagnosis: PAF, afib with RVR Interval history: Mr. Padilla converted to sinus rhythm with PAC. No complaints this morning. He will ambulate in hallway prior to d/c. Objective Vital Signs, Last 4 Hours Temp Pulse Resp BP Pulse Ox 10/07/18 07:26 98.6 F 72 12 129/75 94 General: Conversant, No Apparent Distress, Other (Morbidly obese male. ) HEENT: Atraumatic, Normocephaly, Mucus Membranes Moist Neck: No JVD, Normal carotid pulses Cardiac: Reg Rate and Rhythm, Normal S1 and S2, No Murmur, Other (Mildly irregular, SR with PAC) Lungs: Normal Breath Sounds, No Wheeze, Rales, Rhonchi Neuro: Alert and responsive, No focal deficits noted Abdomen: Soft, Non-Tender Skin: No rashes noted on visualized skin Musculoskeletal: No Chest Wall Tenderness Extremities: No Clubbing, No Cyanosis, No Edema, Normal Pulses Results 10/07/18 03:27 10/07/18 03:27 Lab Results 10/06/18 10/07/18 10/07/18 14:31 03:27 03:27 WBC 8.2 Hgb 12.3 L Hct 40.5 Plt Count 184 INR 1.9 Sodium 136 Potassium 4.4 Chloride 102 Carbon Dioxide 27 BUN 15 Creatinine 1.16 Glucose 190 H Calcium 8.8 10/07/18 03:27 WBC Hgb Hct Plt Count INR 2.3 Sodium Potassium Chloride Carbon Dioxide BUN Creatinine Glucose Calcium - Imaging and Cardiology Echo: report reviewed - EKG Interpretation EKG results cardiology: personally reviewed Consult Discharge Plan - Plan Instructions: Atrial Fibrillation (DC), Meal Planning with Diabetes Exchanges (DC) Referrals: Saritha Stephen MD [Primary Care Provider] - 10/11/18 11:00 am Teresa Ontiveros CNP [Advanced Practice Nurse] - (office will call with appointment. ) Prescriptions: Diltiazem HCl [Cardizem Cd] 360 mg PO DAILY 30 Days #30 cap.er.24h
--- NOTE | 2018-10-07 16:40 | Electrocardiograph Report ---
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
--- NOTE | 2018-10-07 17:35 | Electrocardiograph Report ---
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
== END 2018-10-07 10:04 | disposition home or self-care (01) | DRG 201 ==
LOC: EMEROOARM 14:44 → SUATTDRO 19:00 → 2NNU 19:00
PROVIDERS: ADMIT Internal Medicine; ATTEND Student in an Organized Health Care Education/Training Program

== ENCOUNTER 2018-12-29 10:49 | Inpatient (IN) ==
[2018-12-29] MEDS ORDERED: *HR* Metoprolol 5 MG/5 ML VIAL IVP ONE (11:06)
[2018-12-29 11:26] LABS: Basophils % 0.6 %; Eosinophils # 0.1 K/mcL (0.0-0.6); Eosinophils % 1.3 %; Hematocrit 43.9 % (37.5-50.1); Hemoglobin 13.3 g/dL (12.9-16.9); Immature Granulocytes % 0.3 % (0-4); Lymphocytes % 28.4 %; Mean Corpuscular HGB Conc 30.3 g/dL (31.6-35.5); Mean Corpuscular Hemoglobin 22.9 pg (28.0-33.3); Mean Corpuscular Volume 75.7 fL (83.0-100.0); Mean Platelet Volume 8.6 fL (9.4-12.4); Monocytes # 0.5 K/mcL (0.0-1.3); Monocytes % 6.4 %; Neutrophils # 4.5 K/mcL (1.6-8.9); Platelet Count 182 K/mcL (140-400); Red Cell Distribution Width 17.3 % (11.5-14.5)
[2018-12-29 11:37] LABS: INR 2.4
--- NOTE | 2018-12-29 11:37 | Emergency Department Note ---
Disposition Clinical Impression: Palpitations, Atrial fibrillation with RVR Disposition: Admitted As Inpatient Condition: Fair Time of Disposition: 12:01 General Adult HPI - General Chief complaint: ED Arrhythmia/Palpitations Stated complaint: A-fib Time Seen by Provider: 12/29/18 10:54 Source: patient Limitations: no limitations Nursing Notes Reviewed: Yes Vital Signs Reviewed: Yes - History of Present Illness HPI Narrative: 63 yo male with PMHx of afib, DM, CAD, HTN presents with palpitations for the past 36 hours. He states this has happened o him before and is always due to his afib. He has been taking his medications as prescribed. Pain Scale: 7 - Related Data Home Medications Medication Instructions Recorded Confirmed Aspirin Enteric Coated [Aspirin EC] 81 mg PO DAILY 01/06/18 10/05/18 Furosemide [Lasix] 20 mg PO DAILY PRN 01/06/18 10/05/18 Garlic 500 mg PO DAILY 01/06/18 10/05/18 Glimepiride [Amaryl] 2 mg PO BID 01/06/18 10/05/18 Insulin Glargine,Hum.rec.anlog 20 unit SQ QPM 01/06/18 10/05/18 [Lantus Solostar] Lisinopril [Zestril] 10 mg PO DAILY 01/06/18 10/05/18 Magnesium Oxide [Magnesium] 500 mg PO DAILY 01/06/18 10/05/18 Metformin HCl [Metformin ER 1,000 mg PO BID 01/06/18 10/05/18 Gastric] [place]-3/Dha/Epa/Fish Oil [Fish Oil 1,000 mg PO DAILY 01/06/18 10/05/18 1,000 mg Softgel] Warfarin [Coumadin] 7.5 mg PO MOTUTHSA 01/06/18 10/05/18 Rosuvastatin Calcium [Crestor] 10 mg PO DAILY 10/04/18 10/05/18 Warfarin [Coumadin] 10 mg PO SUWEFR 10/04/18 10/05/18 Previous Rx's Medication Instructions Recorded Metoprolol [Lopressor] 100 mg PO BID tablet 10/07/18 Allergies Allergy/AdvReac Type Severity Reaction Status Date / Time Sulfa (Sulfonamide Allergy Unknown See Verified 10/11/18 09:12 Antibiotics) Comments codeine AdvReac Hallucinati Verified 10/11/18 09:12 ng Past Medical History - Past Medical History Medical history: Reports: atrial fibrillation, diabetes, hypertension, other Surgical history: Reports: vasectomy Psychiatric history: Reports: no psych history - Social History Smoking Status: Former smoker Smokeless Tobacco Status: No Alcohol use: Reports: none Drug use: Reports: none Physical Exam - General Limitations: no limitations General appearance: alert, in no apparent distress Course Vital Signs Temperature 98.1 F 12/29/18 10:51 Pulse Rate 110 12/29/18 10:51 Respiratory Rate 18 12/29/18 10:51 Blood Pressure 156/117 12/29/18 10:51 O2 Sat by Pulse Oximetry 97 12/29/18 10:51 Temperature 98.1 F 12/29/18 10:51 Pulse Rate 110 12/29/18 10:51 Respiratory Rate 18 12/29/18 10:51 Blood Pressure 156/117 12/29/18 10:51 O2 Sat by Pulse Oximetry 97 12/29/18 10:51 Oxygen Delivery Oxygen Delivery Room Air Medical Decision Making - MDM Narrative Medical decision making narrative: This patient has a history of afib with RVR and is currently experiencing palpitations secondary to this. We will do a cardiac workup and plan to admit. 1200 - Lab work is mostly unremarkable with exception to his BNP which is mildly elevated at 297. Dr. Rosario has accepted the patient for rate control and further cardiac workup. - Medical Records Medical records reviewed: Yes I reviewed the patient's medical records. - Lab Data Lab results reviewed: Yes I reviewed the patient's lab results. Result diagrams: 12/29/18 11:13 Lab Results 12/29/18 Range/Units 11:13 WBC 7.1 (4.3-11.1) K/mcL RBC 5.80 H (4.19-5.50) M/mcL Hgb 13.3 (12.9-16.9) g/dL Hct 43.9 (37.5-50.1) % MCV 75.7 L (83.0-100.0) fL MCH 22.9 L (28.0-33.3) pg MCHC 30.3 L (31.6-35.5) g/dL RDW 17.3 H (11.5-14.5) % Plt Count 182 (140-400) K/mcL MPV 8.6 L (9.4-12.4) fL Immature Gran % 0.3 (0-4) % Seg Neutrophils % 63.0 % Lymphocytes % 28.4 % Monocytes % 6.4 % Eosinophils % 1.3 % Basophils % 0.6 % Neutrophils # 4.5 (1.6-8.9) K/mcL Lymphocytes # 2.0 (0.6-4.6) K/mcL Monocytes # 0.5 (0.0-1.3) K/mcL Eosinophils # 0.1 (0.0-0.6) K/mcL Basophils # 0.0 (0.0-0.2) K/mcL - Radiology Data Radiology results reviewed: Yes I reviewed the patient's radiology results. - EKG Data EKG #1 EKG attestation: Yes I reviewed and interpreted this EKG. EKG results narrative: EKG obtained at 11:08 on 12/29/2018 HR 144 bpm, QRS duration 122, QT 294, QTc 455 Junctional tachycardia without any significant ST segment elevations or depressions. No other signs of cardiac ischemia. Previous EKG dated 10/11/2018 shows sinus rhythm with PACs.
[2018-12-29 11:40] LABS: Activated Partial Thrombo Time 39.6 Seconds (26.0-36.0)
[2018-12-29 11:44] LABS: BUN/Creatinine Ratio 11 (6-26); Blood Urea Nitrogen 12 mg/dL (8-23); Calcium 9.1 mg/dL (8.6-10.3); Carbon Dioxide 29 mEq/L (23-29); Chloride 105 mEq/L (98-107); Glucose 230 mg/dL (70-105); Osmolality,Calculated 291 (280-300); Potassium 4.2 mEq/L (3.5-5.1); Sodium 137 mEq/L (136-145); Troponin I < 0.03 ng/mL (< 0.04); eGFR For Non-African Americans > 60 (> 60)
[2018-12-29] MEDS ORDERED: Naloxone 0.4 MG/ML INJ IVP PRN (12:03)
--- NOTE | 2018-12-29 12:03 | Emergency Department Note ---
Disposition Clinical Impression: Atrial fibrillation with RVR Disposition: Admitted As Inpatient Condition: Good Forms: ED Satisfaction Letter General Adult HPI - General Chief complaint: ED Arrhythmia/Palpitations Stated complaint: A-fib Time Seen by Provider: 12/29/18 10:54 Source: patient Limitations: no limitations - History of Present Illness Pain Scale: 7 - Related Data Home Medications Medication Instructions Recorded Confirmed Aspirin Enteric Coated [Aspirin EC] 81 mg PO DAILY 01/06/18 10/05/18 Furosemide [Lasix] 20 mg PO DAILY PRN 01/06/18 10/05/18 Garlic 500 mg PO DAILY 01/06/18 10/05/18 Glimepiride [Amaryl] 2 mg PO BID 01/06/18 10/05/18 Insulin Glargine,Hum.rec.anlog 20 unit SQ QPM 01/06/18 10/05/18 [Lantus Solostar] Lisinopril [Zestril] 10 mg PO DAILY 01/06/18 10/05/18 Magnesium Oxide [Magnesium] 500 mg PO DAILY 01/06/18 10/05/18 Metformin HCl [Metformin ER 1,000 mg PO BID 01/06/18 10/05/18 Gastric] Davis-3/Dha/Epa/Fish Oil [Fish Oil 1,000 mg PO DAILY 01/06/18 10/05/18 1,000 mg Softgel] Warfarin [Coumadin] 7.5 mg PO MOTUTHSA 01/06/18 10/05/18 Rosuvastatin Calcium [Crestor] 10 mg PO DAILY 10/04/18 10/05/18 Warfarin [Coumadin] 10 mg PO SUWEFR 10/04/18 10/05/18 Previous Rx's Medication Instructions Recorded Metoprolol [Lopressor] 100 mg PO BID tablet 10/07/18 Allergies Allergy/AdvReac Type Severity Reaction Status Date / Time Sulfa (Sulfonamide Allergy Unknown See Verified 10/11/18 09:12 Antibiotics) Comments codeine AdvReac Hallucinati Verified 10/11/18 09:12 ng Past Medical History - Past Medical History Medical history: Reports: atrial fibrillation, diabetes, hypertension, other Surgical history: Reports: vasectomy Psychiatric history: Reports: no psych history - Social History Smoking Status: Former smoker Smokeless Tobacco Status: No Alcohol use: Reports: none Drug use: Reports: none Physical Exam - General Limitations: no limitations General appearance: alert, in no apparent distress Course Vital Signs Temperature 98.1 F 12/29/18 10:51 Pulse Rate 110 12/29/18 10:51 Respiratory Rate 18 12/29/18 10:51 Blood Pressure 156/117 12/29/18 10:51 O2 Sat by Pulse Oximetry 97 12/29/18 10:51 Temperature 98.1 F 12/29/18 10:51 Pulse Rate 110 12/29/18 10:51 Respiratory Rate 18 12/29/18 10:51 Blood Pressure 156/117 12/29/18 10:51 O2 Sat by Pulse Oximetry 97 12/29/18 10:51 Oxygen Delivery Oxygen Delivery Room Air Medical Decision Making - Lab Data Result diagrams: 12/29/18 11:13 12/29/18 11:13 Lab Results 12/29/18 12/29/18 12/29/18 Range/Units 11:13 11:13 11:13 WBC 7.1 (4.3-11.1) K/mcL RBC 5.80 H (4.19-5.50) M/mcL Hgb 13.3 (12.9-16.9) g/dL Hct 43.9 (37.5-50.1) % MCV 75.7 L (83.0-100.0) fL MCH 22.9 L (28.0-33.3) pg MCHC 30.3 L (31.6-35.5) g/dL RDW 17.3 H (11.5-14.5) % Plt Count 182 (140-400) K/mcL MPV 8.6 L (9.4-12.4) fL Immature Gran % 0.3 (0-4) % Seg Neutrophils % 63.0 % Lymphocytes % 28.4 % Monocytes % 6.4 % Eosinophils % 1.3 % Basophils % 0.6 % Neutrophils # 4.5 (1.6-8.9) K/mcL Lymphocytes # 2.0 (0.6-4.6) K/mcL Monocytes # 0.5 (0.0-1.3) K/mcL Eosinophils # 0.1 (0.0-0.6) K/mcL Basophils # 0.0 (0.0-0.2) K/mcL PT 27.0 H (9.4-12.1) Seconds INR 2.4 APTT 39.6 H (26.0-36.0) Seconds Sodium 137 (136-145) mEq/L Potassium 4.2 (3.5-5.1) mEq/L Chloride 105 (98-107) mEq/L Carbon Dioxide 29 (23-29) mEq/L BUN 12 (8-23) mg/dL Creatinine 1.07 (0.70-1.30) mg/dL Est GFR ( Amer) > 60 (> 60) Est GFR (Non-Af Amer) > 60 (> 60) BUN/Creatinine Ratio 11 (6-26) Glucose 230 H (70-105) mg/dL Calculated Osmolality 291 (280-300) Calcium 9.1 (8.6-10.3) mg/dL Troponin I < 0.03 (< 0.04) ng/mL B-Natriuretic Peptide (Less than 100) pg/mL 12/29/18 Range/Units 11:13 WBC (4.3-11.1) K/mcL RBC (4.19-5.50) M/mcL Hgb (12.9-16.9) g/dL Hct (37.5-50.1) % MCV (83.0-100.0) fL MCH (28.0-33.3) pg MCHC (31.6-35.5) g/dL RDW (11.5-14.5) % Plt Count (140-400) K/mcL MPV (9.4-12.4) fL Immature Gran % (0-4) % Seg Neutrophils % % Lymphocytes % % Monocytes % % Eosinophils % % Basophils % % Neutrophils # (1.6-8.9) K/mcL Lymphocytes # (0.6-4.6) K/mcL Monocytes # (0.0-1.3) K/mcL Eosinophils # (0.0-0.6) K/mcL Basophils # (0.0-0.2) K/mcL PT (9.4-12.1) Seconds INR APTT (26.0-36.0) Seconds Sodium (136-145) mEq/L Potassium (3.5-5.1) mEq/L Chloride (98-107) mEq/L Carbon Dioxide (23-29) mEq/L BUN (8-23) mg/dL Creatinine (0.70-1.30) mg/dL Est GFR ( Amer) (> 60) Est GFR (Non-Af Amer) (> 60) BUN/Creatinine Ratio (6-26) Glucose (70-105) mg/dL Calculated Osmolality (280-300) Calcium (8.6-10.3) mg/dL Troponin I (< 0.04) ng/mL B-Natriuretic Peptide 297 H (Less than 100) pg/mL Attestation Statement - Attestation Attestation: I examined this patient and my medical decision-making was reviewed with the Resident Physician. I agree with the documented findings, disposition and treatment plan as described except to the extent set forth below. 63 year old male presents to the ED with complaints with atrial fibrillation and states that this is not the first time and he has a histroy of atrial firbillation without conversion to NSr and a histroy of CHF as well. Estee will be amditted to medicne for afib rvr with rates in 144. Estee has been given cardizem drip and bolus. Paitne troponin is negative, no electrolyte abnormlaities. Accepted to medicine service
[2018-12-29] MEDS ORDERED: Furosemide 20 MG TABLET PO PRN (12:04)
[2018-12-29] MEDS ORDERED: Dextrose Gel 15 GM/37.5 ML TUBE PO PRN ×2 (12:08)
[2018-12-29] MEDS ORDERED: D5% in Water 1,000 ML IVC PRN (12:08)
[2018-12-29] MEDS ORDERED: *HR* Dextrose 50 % in Water (Syg) 50 ML SYRINGE IVP PRN (12:08)
--- NOTE | 2018-12-29 12:08 | Internal Med History&Physical ---
Date of Encounter: 12/29/18 Time of Encounter: 12:10 Internal Medicine - H&P: HPI Chief complaint: Palpitations and elevated heart rate for the last 36hrs History of present illness: Mr. Padilla is a 63 year old male with pmh of recurrent afib with RVR, hypertension , diabetes presenting with complaints of palpitations and elevated heart rate in the last 36hrs. Patient notes he has been having these symptoms off and on and was recently here in september where he was offered cardioversion/ ablation but says he wanted to think about it. he has been having shortness of breath and chest discomfort with the palpitations and that's why he came to the the ER today. He denies any other acute symptoms such as nausea, vomiting, fevers, chills or abdominal pain. In the ER, his HR was in the 140s and he was started on a cardizem drip and he is being admitted for further management Past Med Surg Social Fam HX - Past Medical History Medical history: atrial fibrillation, diabetes, hypertension, other Additional medical history: degenerative disc disease Psychiatric history: no psych history - Past Surgical History Surgical History: vasectomy - Social History Smoking Status: Former smoker Smokeless Tobacco Status: No Alcohol use: none Drug use: none - Family History Mother Hx Family Cardiac Disorders: No Father Hx Family Cardiac Disorders: No Internal Medicine - H&P: Meds Aspirin Enteric Coated [Aspirin EC] 81 mg PO DAILY 01/06/18 [History] Furosemide [Lasix] 20 mg PO DAILY PRN 01/06/18 [History] Garlic 500 mg PO DAILY 01/06/18 [History] Glimepiride [Amaryl] 2 mg PO BID 01/06/18 [History] Insulin Glargine,Hum.rec.anlog [Lantus Solostar] 20 unit SQ QPM 01/06/18 [H istory] Lisinopril [Zestril] 10 mg PO DAILY 01/06/18 [History] Magnesium Oxide [Magnesium] 500 mg PO DAILY 01/06/18 [History] Metformin HCl [Metformin ER Gastric] 1,000 mg PO BID 01/06/18 [History] [place]um-3/Dha/Epa/Fish Oil [Fish Oil 1,000 mg Softgel] 1,000 mg PO DAILY 01/06/18 [History] Warfarin [Coumadin] 7.5 mg PO MOTUTHSA 01/06/18 [History] Rosuvastatin Calcium [Crestor] 10 mg PO DAILY 10/04/18 [History] Warfarin [Coumadin] 10 mg PO SUWEFR 10/04/18 [History] Metoprolol [Lopressor] 100 mg PO BID tablet 10/07/18 [Rx] Allergy/AdvReac Type Severity Reaction Status Date / Time Sulfa (Sulfonamide Allergy Unknown See Verified 10/11/18 09:12 Antibiotics) Comments codeine AdvReac Hallucinati Verified 10/11/18 09:12 ng All Systems PM: A 10-system review of systems was performed and is negative for pertinent findings except as documented above in the HPI. - Constitutional Constitutional: no chills, no fever(s), no night sweats - EENT Eyes: no change in vision, no discharge, no pain, no photophobia Ears: no ear discharge, no ear pain, no tinnitus Nose, mouth and throat: no dysphagia, no nasal discharge, no neck pain, no sore throat - Cardiovascular Cardiovascular ROS IM: no chest pain, no diaphoresis, no dyspnea, no lightheadedness, no palpitations, no syncope - Respiratory Respiratory: no cough, no dyspnea, no wheezing, no excessive phlegm production - Gastrointestinal Gastrointestinal: no abdominal pain, no diarrhea, no hematemesis, no hematochezia, no melena, no nausea, no vomiting - Musculoskeletal Musculoskeletal ROS IM: no numbness, no tingling - Integumentary Integumentary IM: no rash, no unusual bruising - Neurological Neurological ROS: no confusion, no convulsions, no focal weakness, no numbness, no tingling, no tremor(s) - Hematologic/Lymphatic Hematologic/Lymphatic: no easy bruising - Constitutional Vitals: Temp Pulse Resp BP Pulse Ox 98.1 F 110 18 156/117 97 12/29/18 10:51 12/29/18 10:51 12/29/18 10:51 12/29/18 10:51 12/29/18 10:51 General appearance: Present: A&O X 2, A&O X 3, morbidly obese Exam: NAD - Head Head exam: Present: atraumatic, normocephalic - Eye Eye exam: Present: PERRL, conjuntiva pink, sclera anicteric Pupils: Present: PERRL - Neck Neck exam general surgery: Present: supple, trachea midline. Absent: l ymphadenopathy - Respiratory Respiratory exam: Present: CTAB. Absent: accessory muscle use, rales, rhonchi, wheezes - Cardiovascular Cardiovascular exam: Present: irregular rhythm, +S1, +S2. Absent: diastolic murmur, gallop, rubs, systolic murmur - GI/Abdominal GI/Abdominal exam: Present: normal bowel sounds, soft, no peritoneal signs. Absent: distended, tenderness - Extremities Exam Extremities exam: Present: warm, radial pulses palpable and symmetrical. Absent: calf tenderness, cyanotic, pedal edema - Neurological Exam Neurological exam: Present: CN II-XII intact, oriented X3, no focal deficits. Absent: pronater drift, facial droop, speech deficit - Skin Skin exam: Present: dry, intact Internal Med - H&P Results - Labs CBC & Chem 7: 12/29/18 11:13 12/29/18 11:13 Labs: Short CBC 12/29/18 Range/Units 11:13 WBC 7.1 (4.3-11.1) K/mcL Hgb 13.3 (12.9-16.9) g/dL Hct 43.9 (37.5-50.1) % Plt Count 182 (140-400) K/mcL Neutrophils # 4.5 (1.6-8.9) K/mcL BMP 12/29/18 11:13 Sodium 137 Potassium 4.2 Chloride 105 Carbon Dioxide 29 BUN 12 Creatinine 1.07 Glucose 230 H Calcium 9.1 Cardiac Enzymes 12/29/18 Range/Units 11:13 Troponin I < 0.03 (< 0.04) ng/mL - Impressions ITS Impressions Chest X-Ray 12/29/18 11:06 IMPRESSION: No acute cardiopulmonary findings. D/ / Marilee Little MD / Marilee Little MD Interpreting Provider: Marilee Little MD - Assessment and plan (1) Atrial fibrillation with RVR Current Visit: Yes Status: Acute Assessment and plan: Pt comes in with afib with RVR. HR was in the 140s on arrival. Received 15mg of cardizem and started on a cardizem drip HR presently in the 70s. Cardiology consulted and recommend keeping NPO for possible cardioversion today Continue coumadin for anticoagulation (2) CAD (coronary artery disease) Current Visit: Yes Status: Acute Assessment and plan: Continue home meds with aspirin Qualifiers: Qualified Code(s): I25.10 - Atherosclerotic heart disease of [place] coronary artery without angina pectoris (3) Diastolic CHF Current Visit: Yes Status: Acute Assessment and plan: Pt has chronic diastolic CHF with no acute exacerbation. continue lasix Qualifiers: Heart failure chronicity: chronic Qualified Code(s): I50.32 - Chronic diastolic (congestive) heart failure (4) Diabetes mellitus Current Visit: Yes Status: Acute Assessment and plan: Continue insulin, monitor fingersticks Qualifiers: Diabetes mellitus type: type 2 Qualified Code(s): E11.9 - Type 2 diabetes mellitus without complications (5) Morbid obesity Current Visit: Yes Status: Acute Assessment and plan: Diet and exercise (6) DVT prophylaxis Current Visit: Yes Status: Acute Assessment and plan: Heparin sc - Time Spent With Patient Total time spent is greater than 50% in coordination of care (as documented) at patient's floor/unit and/or counseling patient:
[2018-12-29 13:34] LABS: Estimated Average Glucose 206 mg/dl; Hemoglobin A1C 8.8 %
--- NOTE | 2018-12-29 14:54 | Electrophysiology Consult Note ---
<Teresa Ontiveros - Last Filed: 12/29/18 14:50> Date of Encounter: 12/29/18 Time of Encounter: 14:00 Assessment and Plan (1) PAF (paroxysmal atrial fibrillation) Current Visit: Yes Status: Chronic Per EP: -Admitted with a.fib RVR, Known PAF. Now SR per telemetry. -ECG admission with liv.joanne, RVR, HR 144, QRS 122ms. -Previously attempted sotalol, however after 1 dose reported side effects and sotalol was stopped. -On cardizem CD 360mg and lopressor 100mg BID at home. ON coumadin for anticoagulation, follows with coumadin clinic. INR today 2.4, 12/12 2.9, 11/14/18 3. -TTE 12/2017 with LVEF 55-60%, moderately enlarged left atrial size, no wall motion abnormalities. -LHC 12/2017 with 30-40% mid LAD, 20% OM1, 30% RPDA. -Discussed and reviewed with Dr.John Bravo, will start rhythmol 150mg Q8 hours. -ECG daily. Continuous telemetry. -Will resume home cardizem and BB, will stop cardizem drip. -Continue coumadin. (2) Encounter for monitoring anti-arrhythmic therapy Current Visit: Yes Status: Acute Per cardiology: -See PAF as above. -Plan to start rhythmol. Discussion w patient/family: The assessment and plan as outlined above was discussed with the patient and/or family members who expressed understanding and agreement. All questions were answered. Thank you for involving us in the care of your patient. Please call with any questions. Discussed and reviewed with Dr.John Bravo. History of Present Illness Consult date: 12/29/18 Requesting physician: Susan Rosario Consult reason: a.fib RVR Chief complaint: a.fib History of present illness: Mr. Padilla is a 63 year old male with a relevant past medical history of paroxysmal a.fib, mild CAD, HTN, obesity, DM who presented to [facility] with complaints of a.fib. States he noticed he was out of rhythm the past 2 days. Denies any other symptoms. Denies current palpitations or fluttering. Past Med Surg Social Fam HX - Past Medical History Attestation: Yes The following information was validated with the patient. Source: patient, old records reviewed Medical history: atrial fibrillation, coronary artery disease, diabetes, hypertension, other Additional medical history: degenerative disc disease Psychiatric history: no psych history - Past Surgical History Surgical History: vasectomy - Social History Smoking Status: Former smoker Smokeless Tobacco Status: No Alcohol use: none Drug use: none - Family History Father Living Status: Age at : 69 Cause of : Lung CA Hx Family Cardiac Disorders: No Hx Family Cancer: Yes (Lung CA) Mother Family Member Ethnicity: Non- Living Status: Age at : 84 Cause of : Unknown Hx Family Cardiac Disorders: No Medications and Allergies RX: Aspirin Enteric Coated [Aspirin EC] 81 mg PO DAILY 01/06/18 [History] RX: Furosemide [Lasix] 20 mg PO DAILY PRN 01/06/18 [History] RX: Garlic 500 mg PO DAILY 01/06/18 [History] RX: Glimepiride [Amaryl] 2 mg PO BID 01/06/18 [History] RX: Insulin Glargine,Hum.rec.anlog [Lantus Solostar] 30 unit SQ QPM 01/06/18 [History] RX: Lisinopril [Zestril] 10 mg PO DAILY 01/06/18 [History] RX: [place]agon-3/Dha/Epa/Fish Oil [Fish Oil 1,000 mg Softgel] 1,000 mg PO DAILY 07/16 [History] RX: Warfarin [Coumadin] 7.5 mg PO DAILY 01/06/18 [History] RX: Rosuvastatin Calcium [Crestor] 10 mg PO QPM 10/04/18 [History] RX: Metoprolol [Lopressor] 100 mg PO BID tablet 10/07/18 [Rx] Diltiazem HCl [Cardizem LA] 360 mg PO QAM 12/29/18 [History] Magnesium Oxide [Magnesium] 400 mg PO DAILY 12/29/18 [History] Metformin HCl [Fortamet] 500 mg PO BID 12/29/18 [History] Allergy/AdvReac Type Severity Reaction Status Date / Time Sulfa (Sulfonamide Allergy Unknown See Verified 10/11/18 09:12 Antibiotics) Comments codeine AdvReac Hallucinati Verified 10/11/18 09:12 ng All Systems Review: The remainder of the systems were reviewed and are negative - Cardiovascular Cardiovascular: as per HPI, irregular heart rhythm Physical Examination Vital Signs, Last 4 Hours Temp Pulse Resp BP Pulse Ox 12/29/18 13:33 67 107/66 12/29/18 13:22 66 111/65 96 12/29/18 13:08 98.0 F 68 14 118/73 96 12/29/18 12:28 125 15 123/89 97 12/29/18 10:51 98.1 F 110 18 156/117 97 General: Conversant, No Apparent Distress HEENT: Atraumatic, Normocephaly, Mucus Membranes Moist Neck: No JVD, Normal carotid pulses Cardiac: Reg Rate and Rhythm, Normal S1 and S2, No Murmur Lungs: Normal Breath Sounds, No Wheeze, Rales, Rhonchi Neuro: Alert and responsive, No focal deficits noted Abdomen: Soft, Non-Tender Skin: No rashes noted on visualized skin Musculoskeletal: No Chest Wall Tenderness Extremities: No Clubbing, No Cyanosis, No Edema, Normal Pulses Results 12/29/18 11:13 12/29/18 11:13 Lab Results Impressions Chest X-Ray 12/29/18 11:06 IMPRESSION: No acute cardiopulmonary findings. D/ / Marilee Little MD / Marilee Little MD Interpreting Provider: Marilee Little MD Active Medications Aspirin (Aspirin Ec) 81 mg PO DAILY JOSE L Stop: 07/01/19 09:01 Atorvastatin Calcium (Lipitor) 20 mg PO HS JOSE L Stop: 06/30/19 21:01 Dextrose/Water (Dextrose 50% (Syg)) 25 ml IVP AD PRN PRN Reason: Hypoglycemia Stop: 06/30/19 12:09 Diltiazem HCl (Cardizem Cd) 360 mg PO DAILY JOSE L Stop: 07/01/19 09:01 Furosemide (Lasix) 20 mg PO DAILY PRN PRN Reason: Edema Stop: 06/30/19 12:05 Glucagon (Glucagen) 1 mg IM ONCE PRN PRN Reason: Hypoglycemia Stop: 06/30/19 12:09 Glucose (Gluctose) 15 gm PO ONCE PRN PRN Reason: Hypoglycemia Stop: 06/30/19 12:09 Glucose (Gluctose) 30 gm PO ONCE PRN PRN Reason: Hypoglycemia Stop: 06/30/19 12:09 Dextrose (Dextrose 5%) 1,000 mls @ 100 mls/hr IVC .Q10H PRN PRN Reason: HYPOGLYCEMIA Stop: 06/30/19 12:09 Insulin Human Lispro (Humalog) 0 units SQ TIDAC [facility]; Protocol Stop: 06/30/19 16:31 Lisinopril (Zestril) 10 mg PO DAILY [facility]; Protocol Stop: 07/01/19 09:01 Magnesium Oxide (Mag-Ox) 400 mg PO DAILY [facility] Stop: 07/01/19 09:01 Metoprolol Tartrate (Lopressor) 100 mg PO BID [facility] Stop: 06/30/19 21:01 Naloxone HCl (Narcan) 0.4 mg IVP Q2MIN PRN PRN Reason: SEE COMMENTS Stop: 06/30/19 12:04 Non-Formulary Medication (Insulin Glargine,Hum.Rec.Anlog [Lantus Solostar]) 20 unit SQ QPM [facility] Stop: 06/30/19 18:01 Propafenone HCl (Rhythmol) 150 mg PO Q8HR [facility] Stop: 06/30/19 16:01 Warfarin Sodium (Coumadin) 7.5 mg PO MOTUTHSA [facility] Stop: 06/30/19 12:16 Warfarin Sodium (Coumadin) 10 mg PO SUWEFR [facility] Stop: 07/01/19 12:05 Laboratory Tests 12/29/18 12/29/18 12/29/18 11:13 11:13 11:13 Hgb 13.3 INR 2.4 Creatinine 1.07 Troponin I < 0.03 12/29/18 12:30 Hgb INR Creatinine Troponin I < 0.03 - Imaging and Cardiology Chest Xray: report reviewed Stress Test: report reviewed Echo: report reviewed Cardiac cath: report reviewed - EKG Interpretation EKG results cardiology: personally reviewed (ECG with lorraine RVR, HR 144. QRS 122ms.), other Consult Discharge Plan - Plan Referrals: Saritha Stephen MD [Primary Care Provider] - (please call the office when you get home to make a follow up appointment for 5-7 days) <Garry Bravo - Last Filed: 01/02/19 14:32> Date of Encounter: 01/02/19 - Attending Attestation I have personally performed a face to face evaluation on this patient. I have reviewed and agree with the care plan. History and Exam by me shows: Recurrent AF. Did not tolerate sotalol. Will try rythmol. Assessment and Plan Discussion w patient/family: The assessment and plan as outlined above was discussed with the patient and/or family members who expressed understanding and agreement. All questions were answered. Thank you for involving us in the care of your patient. Please call with any questions. History of Present Illness History of present illness: Mr. Padilla is a 63 year old male All Systems Review: The remainder of the systems were reviewed and are negative Physical Examination Vital Signs, Last 4 Hours Temp Pulse Resp BP 01/02/19 11:15 98.8 F 55 18 120/73 01/02/19 10:33 57 18 109/62 Results 12/30/18 00:11 12/30/18 00:11 Lab Results 01/02/19 06:21 INR 2.4
[2018-12-29] MEDS: Insulin LISPRO 300 UNITS/3 ML VIAL SQ SCH (17:28)
[2018-12-29] MEDS ORDERED: Insulin DETEMIR 100 UNIT/ML X5UNITS SQ SCH (18:00)
[2018-12-29] MEDS ORDERED: *HR* Warfarin 7.5 MG TABLET PO SCH (18:00)
[2018-12-29] MEDS: Metoprolol 100 MG TABLET PO SCH (21:46)
[2018-12-30 00:36] LABS: Basophils # 0.1 K/mcL (0.0-0.2); Basophils % 0.7 %; Eosinophils # 0.1 K/mcL (0.0-0.6); Eosinophils % 1.9 %; Hematocrit 39.4 % (37.5-50.1); Immature Granulocytes % 0.1 % (0-4); Lymphocytes # 2.6 K/mcL (0.6-4.6); Lymphocytes % 35.9 %; Mean Corpuscular HGB Conc 30.5 g/dL (31.6-35.5); Mean Corpuscular Hemoglobin 22.8 pg (28.0-33.3); Mean Corpuscular Volume 74.9 fL (83.0-100.0); Mean Platelet Volume 8.8 fL (9.4-12.4); Monocytes # 0.5 K/mcL (0.0-1.3); Monocytes % 7.1 %; Platelet Count 186 K/mcL (140-400); Red Blood Count 5.26 M/mcL (4.19-5.50); Red Cell Distribution Width 17.2 % (11.5-14.5); Segmented Neutrophils % 54.3 %
[2018-12-30 00:54] LABS: BUN/Creatinine Ratio 12 (6-26); Blood Urea Nitrogen 13 mg/dL (8-23); Calcium 9.1 mg/dL (8.6-10.3); Carbon Dioxide 29 mEq/L (23-29); Chloride 104 mEq/L (98-107); Glucose 152 mg/dL (70-105); Osmolality,Calculated 289 (280-300); Phosphorous 4.1 mg/dL (2.7-4.5); Potassium 3.8 mEq/L (3.5-5.1); Sodium 138 mEq/L (136-145); eGFR For Non-African Americans > 60 (> 60)
[2018-12-30] MEDS: Diltiazem CD (24hr) 180 MG CAPSULE PO SCH (09:10)
[2018-12-30] MEDS: Magnesium Oxide 400 MG TABLET PO SCH (09:10)
[2018-12-30] MEDS: Metoprolol 100 MG TABLET PO SCH ×2 (09:10→20:56)
[2018-12-30] MEDS: Insulin LISPRO 300 UNITS/3 ML VIAL SQ SCH ×3 (09:10→16:41)
[2018-12-30] MEDS: Aspirin Enteric Coated 81 MG Tablet PO SCH (09:10)
--- NOTE | 2018-12-30 09:17 | Internal Med Progress Note ---
<Wendy Porter - Last Filed: 12/30/18 15:12> Hospitalist Progress Note - Encounter Date of Encounter: 12/30/18 - Exam Vitals: Temp Pulse Resp BP Pulse Ox 98 F 58 20 124/75 95 12/30/18 11:35 12/30/18 11:35 12/30/18 11:35 12/30/18 11:35 12/30/18 11:35 - Assessment and Plan (1) Morbid obesity Current Visit: Yes Status: Acute (2) Diabetes mellitus Current Visit: Yes Status: Acute (3) CAD (coronary artery disease) Current Visit: Yes Status: Acute (4) DVT prophylaxis Current Visit: Yes Status: Acute (5) Atrial fibrillation with RVR Current Visit: Yes Status: Acute (6) Diastolic CHF Current Visit: Yes Status: Acute - Time Spent with Patient Total time spent is greater than 50% in coordination of care (as documented) at patient's floor/unit and/or counseling patient: Internal Medicine: Result - Labs CBC & Chem 7: 12/30/18 00:11 12/30/18 00:11 Labs: Short CBC 12/30/18 Range/Units 00:11 WBC 7.4 (4.3-11.1) K/mcL Hgb 12.0 L (12.9-16.9) g/dL Hct 39.4 (37.5-50.1) % Plt Count 186 (140-400) K/mcL Neutrophils # 4.0 (1.6-8.9) K/mcL BMP 12/30/18 00:11 Sodium 138 Potassium 3.8 Chloride 104 Carbon Dioxide 29 BUN 13 Creatinine 1.06 Glucose 152 H Calcium 9.1 Cardiac Enzymes 12/29/18 12/30/18 Range/Units 18:09 00:11 Troponin I 0.03 0.03 (< 0.04) ng/mL - ABG Interpretation ABG results: PT/INR, D-dimer PT 24.3 Seconds (9.4-12.1) H 12/30/18 09:40 Consult Discharge Plan - Plan Referrals: Saritha Stephen MD [Primary Care Provider] - - Attending Attestation I examined this patient and my medical decision-making was reviewed with the Resident Physician. I agree with the documented findings, disposition and treatment plan as described except to the extent set forth below. No longer with palpitations, HR now under control. Physical exam pt is in no acute distress, lungs ctab, HR regular rate, irregularly irregular rhythm. Continue home medications BB and CCB with Rhythmol added with monitoring per recommendations of Cardiology. HR sustaining 50s-70s and patient asymptomatic. <Jimmy Mcfarlane - Last Filed: 12/30/18 17:57> Hospitalist Progress Note - Encounter Date of Encounter: 12/30/18 Time of Encounter: 09:30 - Subjective Interval History: Pt seen and examined at bedside. No new or acute complaints. Denies any chest pain, palpitations, dizziness, or syncope. States he did have a mild headache after his first dose of Rhythmol which has since resolved. No vision changes, weakness, numbness, or tingling. Denies any fever, chills, shortness of breath, cough, abdominal pain, nausea, vomiting, urinary symptoms, diarrhea, or constipation. - Exam Vitals: Temp Pulse Resp BP Pulse Ox 97.8 F 52 20 127/75 96 12/30/18 07:06 12/30/18 07:06 12/30/18 07:06 12/30/18 07:06 12/30/18 07:06 Exam: General: obese male in no acute distress Head: normocephalic and atraumatic Eyes: PERRL, EOMI, sclera anicteric, conjunctiva pink Neck: supple, trachea midline Lungs: CTA bilaterally. non-labored breathing. No wheezes, rales, or rhonchi Heart: RRR +s1 +s2 No murmurs, clicks, or rubs GI: abdomen soft, non-tender, non-distended. normoactive bowel sounds Extremities: warm, peripheral pulses palpable and symmetrical. No edema or cyanosis Neuro: A&Ox3. no focal deficits. no speech difficulty or abnormality Skin: warm, dry, intact - Assessment and Plan (1) Atrial fibrillation with RVR Current Visit: Yes Status: Acute Assessment and Plan: HR in the 140s on admission Received 15mg of cardizem and started on a cardizem drip Per EP - resume home BB and Cardizem, stop cardizem drip, start Rhythmol 150mg q8hr Currently in NSR with rate in the high 50s-60s Daily EKGs Continue metoprolol and cardizem Continue rhythmol Continue coumadin Possible discharge tomorrow after review of EKG by cardiology (2) Diabetes mellitus Current Visit: Yes Status: Acute Assessment and Plan: Hold home oral antihyperglycemics Diabetic diet ACHS accuchecks Levemir 30u qhs Low dose SSI (3) CAD (coronary artery disease) Current Visit: Yes Status: Acute Assessment and Plan: Continue home ASA, Atorvistatin, and metoprolol (4) Diastolic CHF Current Visit: Yes Status: Acute Assessment and Plan: Not in acute exacerbation Echo from 12/2017 showed LVEF 55-60% with moderately enlarged left atrium Continue home Lasix (5) Morbid obesity Current Visit: Yes Status: Chronic Assessment and Plan: Chronic issue DVT Prophylaxis: on Coumadin - Time Spent with Patient Total time spent is greater than 50% in coordination of care (as documented) at patient's floor/unit and/or counseling patient: Internal Medicine: Result - Labs CBC & Chem 7: 12/30/18 00:11 12/30/18 00:11 Labs: Short CBC 12/29/18 12/30/18 Range/Units 11:13 00:11 WBC 7.1 7.4 (4.3-11.1) K/mcL Hgb 13.3 12.0 L (12.9-16.9) g/dL Hct 43.9 39.4 (37.5-50.1) % Plt Count 182 186 (140-400) K/mcL Neutrophils # 4.5 4.0 (1.6-8.9) K/mcL BMP 12/29/18 12/30/18 11:13 00:11 Sodium 137 138 Potassium 4.2 3.8 Chloride 105 104 Carbon Dioxide 29 29 BUN 12 13 Creatinine 1.07 1.06 Glucose 230 H 152 H Calcium 9.1 9.1 Cardiac Enzymes 12/29/18 12/29/18 12/29/18 Range/Units 11:13 12:30 18:09 Troponin I < 0.03 < 0.03 0.03 (< 0.04) ng/mL 12/30/18 Range/Units 00:11 Troponin I 0.03 (< 0.04) ng/mL - ABG Interpretation ABG results: PT/INR, D-dimer PT 27.0 Seconds (9.4-12.1) H 12/29/18 11:13 - Impressions Impressions Chest X-Ray 12/29/18 11:06 IMPRESSION: No acute cardiopulmonary findings. D/ / Marilee Little MD / Marilee Little MD Interpreting Provider: Marilee Little MD <Wendy Porter - Last Filed: 12/30/18 15:12> (2) Diabetes mellitus Qualifiers: Diabetes mellitus type: type 2 Qualified Code(s): E11.9 - Type 2 diabetes mellitus without complications (3) CAD (coronary artery disease) Qualifiers: Qualified Code(s): I25.10 - Atherosclerotic heart disease of [place] coronary artery without angina pectoris (6) Diastolic CHF Qualifiers: Heart failure chronicity: chronic Qualified Code(s): I50.32 - Chronic diastolic (congestive) heart failure <Jimmy Mcfarlane - Last Filed: 12/30/18 17:57> (2) Diabetes mellitus Qualifiers: Diabetes mellitus type: type 2 Qualified Code(s): E11.9 - Type 2 diabetes mellitus without complications (3) CAD (coronary artery disease) Qualifiers: Qualified Code(s): I25.10 - Atherosclerotic heart disease of [place] coronary artery without angina pectoris (4) Diastolic CHF Qualifiers: Heart failure chronicity: chronic Qualified Code(s): I50.32 - Chronic diastolic (congestive) heart failure
[2018-12-30 10:10] LABS: INR 2.2; Prothrombin Time 24.3 Seconds (9.4-12.1)
--- NOTE | 2018-12-30 11:38 | Electrophysiology ProgressNote ---
Date of Encounter: 12/30/18 Time of Encounter: 08:30 Assessment and Plan (1) PAF (paroxysmal atrial fibrillation) Current Visit: Yes Status: Chronic Per EP: -Admitted with lorraine RVR, Known PAF. Now SR. -Started on rhythmol. -ECG admission with lorraine, RVR, HR 144, QRS 122ms. -ECG 12/30 s/p 2 doses of rhythmol with SB, HR 56. QRS 104ms. -On cardizem CD 360mg and lopressor 100mg BID at home. ON coumadin for anticoagulation, follows with coumadin clinic. INR today 2.2, 12/12 2.9, 11/14/18 3. -TTE 12/2017 with LVEF 55-60%, moderately enlarged left atrial size, no wall motion abnormalities. -LHC 12/2017 with 30-40% mid LAD, 20% OM1, 30% RPDA. -Continue rhythmol. ECGs reviewed with Dr.John Bravo. Possible cardiology sign off tomorrow am pending ECG in am and telemetry review. -ECG daily. Continuous telemetry. -Continue home cardizem and lopressor. -Continue coumadin. (2) Encounter for monitoring anti-arrhythmic therapy Current Visit: Yes Status: Acute Per EP: -See PAF as above. Discussion w patient/family: The assessment and plan as outlined above was discussed with the patient and/or family members who expressed understanding and agreement. All questions were answered. Thank you for involving us in the care of your patient. Please call with any questions. Discussed and reviewed with Dr.John Bravo. Subjective Principal diagnosis: [email or web address] Interval history: Patient reports he feels well today. Denies complaints. Objective Vital Signs Temperature 98.1 F 12/29/18 10:51 Pulse Rate 110 12/29/18 10:51 Respiratory Rate 18 12/29/18 10:51 Blood Pressure 156/117 12/29/18 10:51 O2 Sat by Pulse Oximetry 97 12/29/18 10:51 Temperature 97.8 F 12/30/18 07:06 Pulse Rate 52 12/30/18 07:06 Respiratory Rate 20 12/30/18 07:06 Blood Pressure 127/75 12/30/18 07:06 O2 Sat by Pulse Oximetry 96 12/30/18 07:06 Oxygen Delivery Oxygen Delivery Room Air General: Conversant, No Apparent Distress HEENT: Atraumatic, Normocephaly, Mucus Membranes Moist Neck: No JVD, Normal carotid pulses Cardiac: Reg Rate and Rhythm, Normal S1 and S2, No Murmur Lungs: Normal Breath Sounds, No Wheeze, Rales, Rhonchi Neuro: Alert and responsive, No focal deficits noted Abdomen: Soft, Non-Tender Skin: No rashes noted on visualized skin Musculoskeletal: No Chest Wall Tenderness Extremities: No Clubbing, No Cyanosis, No Edema, Normal Pulses Results 12/30/18 00:11 12/30/18 00:11 Lab Results Active Medications Aspirin (Aspirin Ec) 81 mg PO DAILY [facility] Stop: 07/01/19 09:01 Last Admin: 12/30/18 09:10 Dose: 81 mg Atorvastatin Calcium (Lipitor) 20 mg PO HS [facility] Stop: 06/30/19 21:01 Last Admin: 12/29/18 21:46 Dose: 20 mg Dextrose/Water (Dextrose 50% (Syg)) 25 ml IVP AD PRN PRN Reason: Hypoglycemia Stop: 06/30/19 12:09 Diltiazem HCl (Cardizem Cd) 360 mg PO DAILY [facility] Stop: 07/01/19 09:01 Last Admin: 12/30/18 09:10 Dose: 360 mg Furosemide (Lasix) 20 mg PO DAILY PRN PRN Reason: Edema Stop: 06/30/19 12:05 Glucagon (Glucagen) 1 mg IM ONCE PRN PRN Reason: Hypoglycemia Stop: 06/30/19 12:09 Glucose (Gluctose) 15 gm PO ONCE PRN PRN Reason: Hypoglycemia Stop: 06/30/19 12:09 Glucose (Gluctose) 30 gm PO ONCE PRN PRN Reason: Hypoglycemia Stop: 06/30/19 12:09 Dextrose (Dextrose 5%) 1,000 mls @ 100 mls/hr IVC .Q10H PRN PRN Reason: HYPOGLYCEMIA Stop: 06/30/19 12:09 Insulin Detemir (Levemir) 30 unit SQ QPM [facility] Stop: 06/30/19 18:01 Insulin Human Lispro (Humalog) 0 units SQ TIDAC [facility]; Protocol Stop: 06/30/19 16:31 Last Admin: 12/30/18 09:10 Dose: 2 units Lisinopril (Zestril) 10 mg PO DAILY [facility]; Protocol Stop: 07/01/19 09:01 Last Admin: 12/30/18 09:10 Dose: 10 mg Magnesium Oxide (Mag-Ox) 400 mg PO DAILY [facility] Stop: 07/01/19 09:01 Last Admin: 12/30/18 09:10 Dose: 400 mg Metoprolol Tartrate (Lopressor) 100 mg PO BID [facility] Stop: 06/30/19 21:01 Last Admin: 12/30/18 09:10 Dose: 100 mg Naloxone HCl (Narcan) 0.4 mg IVP Q2MIN PRN PRN Reason: SEE COMMENTS Stop: 06/30/19 12:04 Propafenone HCl (Rhythmol) 150 mg PO Q8HR [facility] Stop: 06/30/19 16:01 Last Admin: 12/30/18 09:10 Dose: 150 mg Warfarin Sodium (Coumadin) 7.5 mg PO 1800 [facility] Stop: 06/30/19 18:01 Warfarin Sodium (Coumadin Perpt) 1 each PO DAILY@1800 PRN PRN Reason: SEE COMMENTS Stop: 07/01/19 18:01 Laboratory Tests 12/30/18 12/30/18 00:11 09:40 INR 2.2 Creatinine 1.06 - Imaging and Cardiology Chest Xray: report reviewed Stress Test: report reviewed Echo: report reviewed Cardiac cath: report reviewed - EKG Interpretation EKG results cardiology: personally reviewed (ECG today with SB, HR 56. QRS 104ms.), other (Telemetry reviewed with average HR previous 12 hours noted to be 59, SB. PVCs and PACs noted.) Consult Discharge Plan - Plan Referrals: Saritha Stephen MD [Primary Care Provider] -
[2018-12-30] MEDS: Insulin DETEMIR 100 UNIT/ML X5UNITS SQ SCH (16:41)
[2018-12-30] MEDS ORDERED: *HR* Warfarin 10 MG TABLET PO ONE (18:00)
[2018-12-30] MEDS ORDERED: *HR* Warfarin 10 MG TABLET PO SCH (18:00)
[2018-12-30] MEDS ORDERED: Warfarin perPT PO PRN (18:00)
[2018-12-30] MEDS ORDERED: *HR* Warfarin 7.5 MG TABLET PO SCH (18:00)
[2018-12-31 06:27] LABS: INR 2.3; Prothrombin Time 25.5 Seconds (9.4-12.1)
--- NOTE | 2018-12-31 07:46 | Internal Med Progress Note ---
Hospitalist Progress Note - Encounter Date of Encounter: 01/01/19 Time of Encounter: 17:34 - Subjective Interval History: No complaints, no acute events. - Exam Vitals: Temp Pulse Resp BP Pulse Ox 98.6 F 58 14 112/66 94 12/31/18 04:00 12/31/18 04:00 12/31/18 04:00 12/31/18 04:00 12/31/18 04:00 Exam: General: obese male in no acute distress Head: normocephalic and atraumatic Eyes: PERRL, EOMI, sclera anicteric, conjunctiva pink Neck: supple, trachea midline Lungs: CTA bilaterally. non-labored breathing. No wheezes, rales, or rhonchi Heart: RRR +s1 +s2 No murmurs, clicks, or rubs GI: abdomen soft, non-tender, non-distended. normoactive bowel sounds Extremities: warm, peripheral pulses palpable and symmetrical. No edema or cyanosis Neuro: A&Ox3. no focal deficits. no speech difficulty or abnormality Skin: warm, dry, intact - Assessment and Plan (1) Atrial fibrillation with RVR Current Visit: Yes Status: Acute Assessment and Plan: HR in the 140s on admission Received 15mg of cardizem and started on a cardizem drip Per EP - resume home BB and Cardizem, stop cardizem drip, started Rhythmol 150mg q8hr Continue metoprolol and cardizem Continue rhythmol Continue coumadin Pending further recommendations by Cardiology. (2) Morbid obesity Current Visit: Yes Status: Chronic Assessment and Plan: Chronic issue (3) Diabetes mellitus Current Visit: Yes Status: Acute Assessment and Plan: Hold home oral antihyperglycemics Diabetic diet ACHS accuchecks Levemir 30u qhs Low dose SSI (4) CAD (coronary artery disease) Current Visit: Yes Status: Acute Assessment and Plan: Continue home ASA, Atorvistatin, and metoprolol (5) Diastolic CHF Current Visit: Yes Status: Acute Assessment and Plan: Not in acute exacerbation Echo from 12/2017 showed LVEF 55-60% with moderately enlarged left atrium Continue home Lasix, which he takes as prn. - Time Spent with Patient Total time spent is greater than 50% in coordination of care (as documented) at patient's floor/unit and/or counseling patient: Internal Medicine: Result - Labs CBC & Chem 7: 12/30/18 00:11 12/30/18 00:11 - ABG Interpretation ABG results: PT/INR, D-dimer PT 25.5 Seconds (9.4-12.1) H 12/31/18 06:02 Consult Discharge Plan - Plan Referrals: Saritha Stephen MD [Primary Care Provider] - (3) Diabetes mellitus Qualifiers: Diabetes mellitus type: type 2 Qualified Code(s): E11.9 - Type 2 diabetes mellitus without complications (4) CAD (coronary artery disease) Qualifiers: Qualified Code(s): I25.10 - Atherosclerotic heart disease of [place] coronary artery without angina pectoris (5) Diastolic CHF Qualifiers: Heart failure chronicity: chronic Qualified Code(s): I50.32 - Chronic diastolic (congestive) heart failure
[2018-12-31] MEDS: Diltiazem CD (24hr) 180 MG CAPSULE PO SCH (07:54)
[2018-12-31] MEDS: Metoprolol 100 MG TABLET PO SCH ×2 (07:55→19:43)
[2018-12-31] MEDS: Magnesium Oxide 400 MG TABLET PO SCH (07:55)
[2018-12-31] MEDS: Aspirin Enteric Coated 81 MG Tablet PO SCH (07:55)
[2018-12-31] MEDS: Insulin LISPRO 300 UNITS/3 ML VIAL SQ SCH ×5 (07:58→20:48)
--- NOTE | 2018-12-31 10:00 | Electrocardiograph Report ---
[address] [place], [place] [address] Test Date: 2018-12-30 Pat Name: Solo Padilla Department: 111 Room: [facility] Gender: M [employer]: : 1955 Requested By: Teresa Ontiveros Order Number: [id number] Reading MD: Reshma Prasad Measurements Intervals [place] Rate: 56 P: 62 RI: 186 QRS: 3 QRSD: 104 T: 47 QT: 448 QTc: 439 Interpretive Statements SINUS BRADYCARDIA Electronically Signed On 12-31-2018 9:58:16 EST by Reshma Prasad
--- NOTE | 2018-12-31 11:28 | Cardiology Progress Note ---
Date of Encounter: 12/31/18 Time of Encounter: 09:30 Assessment and Plan (1) PAF (paroxysmal atrial fibrillation) Current Visit: Yes Status: Chronic Per EP: -Admitted with a.fib RVR. Known PAF. -Started on rhythmol, s/p 6 total doses. -ECG admission with a.fib, RVR, HR 144, QRS 122ms. -ECG 12/30 s/p 2 doses of rhythmol with SB, HR 56. QRS 104ms. -EGC / s/p 5 doses with a.fib, HR 63. QRS 95ms. -On cardizem CD 360mg and lopressor 100mg BID. ON coumadin for anticoagulation, follows with coumadin clinic. INR today 2.3, 12/12 2.9, 11/14/18 3. -TTE 12/2017 with LVEF 55-60%, moderately enlarged left atrial size, no wall motion abnormalities. -LHC 12/2017 with 30-40% mid LAD, 20% OM1, 30% RPDA. -Discussed and reviewed with , with recurrence of a.fib, will increase rhythmol to 225mg Q8 hours. -Recommend CPAP (has at home but did not bring to hospital). -ECG daily. Continuous telemetry. -Continue home cardizem and lopressor. -Continue coumadin. -Will continue to monitor. (2) Encounter for monitoring anti-arrhythmic therapy Current Visit: Yes Status: Acute Per EP: -See PAF as above. Discussion w patient/family: The assessment and plan as outlined above was discussed with the patient and/or family members who expressed understanding and agreement. All questions were answered. Thank you for involving us in the care of your patient. Please call with any questions. Discussed and reviewed with . Subjective Principal diagnosis: a.fib Interval history: Patient reports being in a.fib this morning. Denies other complaints. Objective Vital Signs, Last 4 Hours Temp Pulse Resp BP Pulse Ox 12/31/18 10:53 98 F 82 20 118/71 95 12/31/18 07:52 97.9 F 53 16 125/77 95 General: Conversant, No Apparent Distress HEENT: Atraumatic, Normocephaly, Mucus Membranes Moist Neck: No JVD, Normal carotid pulses Cardiac: Normal S1 and S2, No Murmur, Other (Irregularly irregular) Lungs: Normal Breath Sounds, No Wheeze, Rales, Rhonchi Neuro: Alert and responsive, No focal deficits noted Abdomen: Soft, Non-Tender Skin: No rashes noted on visualized skin Musculoskeletal: No Chest Wall Tenderness Extremities: No Clubbing, No Cyanosis, No Edema, Normal Pulses Results 12/30/18 00:11 12/30/18 00:11 Lab Results Active Medications Aspirin (Aspirin Ec) 81 mg PO DAILY [facility] Stop: 07/01/19 09:01 Last Admin: 12/31/18 07:55 Dose: 81 mg Atorvastatin Calcium (Lipitor) 20 mg PO HS [facility] Stop: 06/30/19 21:01 Last Admin: 12/30/18 20:57 Dose: 20 mg Dextrose/Water (Dextrose 50% (Syg)) 25 ml IVP AD PRN PRN Reason: Hypoglycemia Stop: 06/30/19 12:09 Diltiazem HCl (Cardizem Cd) 360 mg PO DAILY [facility] Stop: 07/01/19 09:01 Last Admin: 12/31/18 07:54 Dose: 360 mg Furosemide (Lasix) 20 mg PO DAILY PRN PRN Reason: Edema Stop: 06/30/19 12:05 Glucagon (Glucagen) 1 mg IM ONCE PRN PRN Reason: Hypoglycemia Stop: 06/30/19 12:09 Glucose (Gluctose) 15 gm PO ONCE PRN PRN Reason: Hypoglycemia Stop: 06/30/19 12:09 Glucose (Gluctose) 30 gm PO ONCE PRN PRN Reason: Hypoglycemia Stop: 06/30/19 12:09 Dextrose (Dextrose 5%) 1,000 mls @ 100 mls/hr IVC .Q10H PRN PRN Reason: HYPOGLYCEMIA Stop: 06/30/19 12:09 Insulin Detemir (Levemir) 30 unit SQ QPM [facility] Stop: 06/30/19 18:01 Last Admin: 12/30/18 16:41 Dose: 30 unit Insulin Human Lispro (Humalog) 0 units SQ TIDAC [facility]; Protocol Stop: 06/30/19 16:31 Last Admin: 12/31/18 07:58 Dose: 4 units Lisinopril (Zestril) 10 mg PO DAILY [facility]; Protocol Stop: 07/01/19 09:01 Last Admin: 12/31/18 07:55 Dose: 10 mg Magnesium Oxide (Mag-Ox) 400 mg PO DAILY [facility] Stop: 07/01/19 09:01 Last Admin: 12/31/18 07:55 Dose: 400 mg Metoprolol Tartrate (Lopressor) 100 mg PO BID [facility] Stop: 06/30/19 21:01 Last Admin: 12/31/18 07:55 Dose: 100 mg Naloxone HCl (Narcan) 0.4 mg IVP Q2MIN PRN PRN Reason: SEE COMMENTS Stop: 06/30/19 12:04 Propafenone HCl (Rhythmol) 225 mg PO Q8HR [facility] Stop: 07/02/19 16:01 Warfarin Sodium (Coumadin Perpt) 1 each PO DAILY@1800 PRN PRN Reason: SEE COMMENTS Stop: 07/01/19 18:01 - Imaging and Cardiology Chest Xray: report reviewed Stress Test: report reviewed Echo: report reviewed Cardiac cath: report reviewed - EKG Interpretation EKG results cardiology: other (Telemetry reviewed with average HR previous 12 hours noted to be 68, SR. PAF noted.) Consult Discharge Plan - Plan Referrals: Saritha Stephen MD [Primary Care Provider] -
[2018-12-31] MEDS: Insulin DETEMIR 100 UNIT/ML X5UNITS SQ SCH (17:46)
[2018-12-31] MEDS ORDERED: *HR* Warfarin 7.5 MG TABLET PO ONE (18:00)
--- NOTE | 2019-01-01 05:21 | Electrocardiograph Report ---
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
[2019-01-01] MEDS: Diltiazem CD (24hr) 180 MG CAPSULE PO SCH (08:10)
[2019-01-01] MEDS: Aspirin Enteric Coated 81 MG Tablet PO SCH (08:10)
[2019-01-01] MEDS: Insulin LISPRO 300 UNITS/3 ML VIAL SQ SCH ×4 (08:10→19:36)
[2019-01-01] MEDS: Magnesium Oxide 400 MG TABLET PO SCH (08:10)
--- NOTE | 2019-01-01 08:27 | Internal Med Progress Note ---
Hospitalist Progress Note - Encounter Date of Encounter: 01/01/19 Time of Encounter: 08:48 - Subjective Interval History: No complaints, no acute events. Denies chest pain, palpitations, shortness of breath, edema, orthopnea, n/v, numbness/tingling. - Exam Vitals: Temp Pulse Resp BP Pulse Ox 97.8 F 57 15 125/75 96 01/01/19 04:03 01/01/19 07:57 01/01/19 07:57 01/01/19 07:57 01/01/19 07:57 Exam: General: obese male in no acute distress Head: normocephalic and atraumatic Eyes: PERRL, EOMI, sclera anicteric, conjunctiva pink Neck: supple, trachea midline Lungs: CTA bilaterally. non-labored breathing. No wheezes, rales, or rhonchi Heart: regular rate, irregularly irregular rhythm +s1 +s2 No murmurs, clicks, or rubs GI: abdomen soft, non-tender, non-distended. normoactive bowel sounds Extremities: warm, peripheral pulses palpable and symmetrical. No edema or cyanosis Neuro: A&Ox3. no focal deficits. no speech difficulty or abnormality Skin: warm, dry, intact - Assessment and Plan (1) Atrial fibrillation with RVR Current Visit: Yes Status: Acute Assessment and Plan: HR in the 140s on admission Received 15mg of cardizem and started on a cardizem drip which has since been discontinued Continue home BB and Cardizem PO Rhythmol dose increased yesterday to 225 mg Q8HR NPO after midnight for possible DCCV in AM (2) Morbid obesity Current Visit: Yes Status: Chronic Assessment and Plan: Chronic issue (3) Diabetes mellitus Current Visit: Yes Status: Acute Assessment and Plan: Hold home oral antihyperglycemics Diabetic diet ACHS accuchecks Levemir 30u qhs Low dose SSI (4) CAD (coronary artery disease) Current Visit: Yes Status: Acute Assessment and Plan: Continue home ASA, Atorvistatin, and metoprolol (5) Diastolic CHF Current Visit: Yes Status: Acute - Time Spent with Patient Total time spent is greater than 50% in coordination of care (as documented) at patient's floor/unit and/or counseling patient: Internal Medicine: Result - Labs CBC & Chem 7: 12/30/18 00:11 12/30/18 00:11 - ABG Interpretation ABG results: PT/INR, D-dimer PT 25.5 Seconds (9.4-12.1) H 12/31/18 06:02 Consult Discharge Plan - Plan Referrals: Saritha Stephen MD [Primary Care Provider] - (3) Diabetes mellitus Qualifiers: Diabetes mellitus type: type 2 Qualified Code(s): E11.9 - Type 2 diabetes mellitus without complications (4) CAD (coronary artery disease) Qualifiers: Coronary Disease-Associated Artery/Lesion type: unspecified vessel or lesion type [place] vs. transplanted heart: [place] heart Associated angina: without angina Qualified Code(s): I25.10 - Atherosclerotic heart disease of [place] coronary artery without angina pectoris (5) Diastolic CHF Qualifiers: Heart failure chronicity: chronic Qualified Code(s): I50.32 - Chronic diastolic (congestive) heart failure
[2019-01-01 09:02] LABS: INR 2.2; Prothrombin Time 25.2 Seconds (9.4-12.1)
[2019-01-01] MEDS: Metoprolol 100 MG TABLET PO SCH ×2 (09:36→19:35)
--- NOTE | 2019-01-01 09:40 | Cardiology Progress Note ---
Date of Encounter: 01/01/19 Time of Encounter: 08:45 Assessment and Plan (1) PAF (paroxysmal atrial fibrillation) Current Visit: Yes Status: Chronic Per EP: -Admitted with a.fib RVR. Known PAF. -Started on rhythmol 150mg, had recurrence of a.fib, and rhythmol was increased to 225mg, has received 3 total doses of increased rhythmol. -ECG admission with a.fib, RVR, HR 144, QRS 122ms. -ECG 2/1 s/p 2 doses of rhythmol with SB, HR 56. QRS 104ms. -EGC 2/2 s/p 5 doses with a.fib, HR 63. QRS 95ms. -ECG 2/3 s/p 2 total doses of increased rhythmol with SB, HR 55. QRS 108ms. -On cardizem CD 360mg and lopressor 100mg BID. ON coumadin for anticoagulation, follows with coumadin clinic. INR today 2.4, 12/12 2.9, 11/14/18 3. -TTE 12/2017 with LVEF 55-60%, moderately enlarged left atrial size, no wall motion abnormalities. -LHC 12/2017 with 30-40% mid LAD, 20% OM1, 30% RPDA. -Continue current dose of rhythmol. Will make NPO after midnight for possible DCCV if in a.fib in am. -Recommend CPAP. -ECG daily. Continuous telemetry. -Continue home cardizem and lopressor. -Continue coumadin. -Will continue to monitor. (2) Encounter for monitoring anti-arrhythmic therapy Current Visit: Yes Status: Acute Per EP: -See PAF as above. Discussion w patient/family: The assessment and plan as outlined above was discussed with the patient and/or family members who expressed understanding and agreement. All questions were answered. Thank you for involving us in the care of your patient. Please call with any questions. Discussed and reviewed with . Subjective Principal diagnosis: a.fib Interval history: Patient denies symptoms. Reports he feels well today. States he slept well last night. Objective Vital Signs, Last 4 Hours Pulse Resp BP Pulse Ox 01/01/19 07:57 57 15 125/75 96 General: Conversant, No Apparent Distress HEENT: Atraumatic, Normocephaly, Mucus Membranes Moist Neck: No JVD, Normal carotid pulses Cardiac: Reg Rate and Rhythm, Normal S1 and S2, No Murmur Lungs: Normal Breath Sounds, No Wheeze, Rales, Rhonchi Neuro: Alert and responsive, No focal deficits noted Abdomen: Soft, Non-Tender Skin: No rashes noted on visualized skin Musculoskeletal: No Chest Wall Tenderness Extremities: No Clubbing, No Cyanosis, Normal Pulses, Other (Mild lower extremity edema noted. ) Results 12/30/18 00:11 12/30/18 00:11 Lab Results Active Medications Aspirin (Aspirin Ec) 81 mg PO DAILY [facility] Stop: 07/01/19 09:01 Last Admin: 01/01/19 08:10 Dose: 81 mg Atorvastatin Calcium (Lipitor) 20 mg PO HS [facility] Stop: 06/30/19 21:01 Last Admin: 12/31/18 19:43 Dose: 20 mg Dextrose/Water (Dextrose 50% (Syg)) 25 ml IVP AD PRN PRN Reason: Hypoglycemia Stop: 06/30/19 12:09 Diltiazem HCl (Cardizem Cd) 360 mg PO DAILY [facility] Stop: 07/01/19 09:01 Last Admin: 01/01/19 08:10 Dose: 360 mg Furosemide (Lasix) 20 mg PO DAILY PRN PRN Reason: Edema Stop: 06/30/19 12:05 Glucagon (Glucagen) 1 mg IM ONCE PRN PRN Reason: Hypoglycemia Stop: 06/30/19 12:09 Glucose (Gluctose) 15 gm PO ONCE PRN PRN Reason: Hypoglycemia Stop: 06/30/19 12:09 Glucose (Gluctose) 30 gm PO ONCE PRN PRN Reason: Hypoglycemia Stop: 06/30/19 12:09 Dextrose (Dextrose 5%) 1,000 mls @ 100 mls/hr IVC .Q10H PRN PRN Reason: HYPOGLYCEMIA Stop: 06/30/19 12:09 Insulin Detemir (Levemir) 30 unit SQ QPM [facility] Stop: 06/30/19 18:01 Last Admin: 12/31/18 17:46 Dose: 30 unit Insulin Human Lispro (Humalog) 0 units SQ TIDAC [facility]; Protocol Stop: 06/30/19 16:31 Last Admin: 01/01/19 08:10 Dose: 4 units Insulin Human Lispro (Humalog) 0 units SQ HS [facility]; Protocol Stop: 07/02/19 21:01 Last Admin: 12/31/18 20:48 Dose: 3 units Lisinopril (Zestril) 10 mg PO DAILY [facility]; Protocol Stop: 07/01/19 09:01 Last Admin: 01/01/19 08:09 Dose: 10 mg Magnesium Oxide (Mag-Ox) 400 mg PO DAILY [facility] Stop: 07/01/19 09:01 Last Admin: 01/01/19 08:10 Dose: 400 mg Metoprolol Tartrate (Lopressor) 100 mg PO BID [facility] Stop: 06/30/19 21:01 Last Admin: 01/01/19 09:36 Dose: 100 mg Naloxone HCl (Narcan) 0.4 mg IVP Q2MIN PRN PRN Reason: SEE COMMENTS Stop: 06/30/19 12:04 Propafenone HCl (Rhythmol) 225 mg PO Q8HR [facility] Stop: 07/02/19 16:01 Last Admin: 01/01/19 08:09 Dose: 225 mg Warfarin Sodium (Coumadin Perpt) 1 each PO DAILY@1800 PRN PRN Reason: SEE COMMENTS Stop: 07/01/19 18:01 Laboratory Tests 01/01/19 08:44 INR 2.2 - Imaging and Cardiology Chest Xray: report reviewed Stress Test: report reviewed Echo: report reviewed Cardiac cath: report reviewed - EKG Interpretation EKG results cardiology: other (Telemetry reviewed with average HR previous 12 hours noted to be 55, SR. PAF noted overnight.) Consult Discharge Plan - Plan Referrals: Saritha Stephen MD [Primary Care Provider] -
[2019-01-01] MEDS: Insulin DETEMIR 100 UNIT/ML X5UNITS SQ SCH (16:31)
[2019-01-01] MEDS ORDERED: *HR* Warfarin 10 MG TABLET PO ONE (18:00)
[2019-01-02 06:49] LABS: INR 2.4; Prothrombin Time 27.5 Seconds (9.4-12.1)
--- NOTE | 2019-01-02 09:45 | Internal Med Progress Note ---
<Jimmy Mcfarlane - Last Filed: 01/02/19 13:17> Hospitalist Progress Note - Encounter Date of Encounter: 01/02/19 Time of Encounter: 09:45 - Subjective Interval History: Pt seen and examined at bedside. No new or acute complaints. Denies any chest pain, palpitations, dizziness, or syncope. Denies any fever, chills, shortness of breath, cough, abdominal pain, nausea, vomiting, urinary symptoms, diarrhea, or constipation. - Exam Vitals: Temp Pulse Resp BP Pulse Ox 97.9 F 71 20 118/67 93 01/02/19 07:01 01/02/19 07:01 01/02/19 07:01 01/02/19 07:01 01/02/19 07:01 Exam: General: obese male in no acute distress Head: normocephalic and atraumatic Eyes: PERRL, EOMI, sclera anicteric, conjunctiva pink Neck: supple, trachea midline Lungs: CTA bilaterally. non-labored breathing. No wheezes, rales, or rhonchi Heart: normal rate, irregularly irregular rhythm +s1 +s2 No murmurs, clicks, or rubs GI: abdomen soft, non-tender, non-distended. normoactive bowel sounds Extremities: warm, peripheral pulses palpable and symmetrical. No edema or cyanosis Neuro: A&Ox3. no focal deficits. no speech difficulty or abnormality Skin: warm, dry, intact - Assessment and Plan (1) Atrial fibrillation with RVR Current Visit: Yes Status: Acute Assessment and Plan: HR in the 140s on admission Received 15mg of cardizem and started on a cardizem drip which has since been discontinued Continue home BB and Cardizem PO Cardiology on board Rhythmol dose increased further to 300 mg Q8HR Per Cards recs: If increased rhythmol does not control paroxysmal Afib with RVR, may require a different antiarrhythmic. No cardioversion at this time since Afib RVR is paroxysmal in nature. (2) Diabetes mellitus Current Visit: Yes Status: Acute Assessment and Plan: Hold home oral antihyperglycemics Diabetic diet ACHS accuchecks Levemir 30u qhs Low dose SSI (3) CAD (coronary artery disease) Current Visit: Yes Status: Acute Assessment and Plan: Continue home ASA, Atorvastatin, and metoprolol (4) Morbid obesity Current Visit: Yes Status: Chronic Assessment and Plan: Chronic issue (5) Diastolic CHF Current Visit: Yes Status: Acute Assessment and Plan: Not in acute exacerbation Echo from 12/2017 showed LVEF 55-60% with moderately enlarged left atrium Continue home Lasix, which he takes as prn DVT Prophylaxis: on coumadin - Time Spent with Patient Total time spent is greater than 50% in coordination of care (as documented) at patient's floor/unit and/or counseling patient: Internal Medicine: Result - Labs CBC & Chem 7: 12/30/18 00:11 12/30/18 00:11 - ABG Interpretation ABG results: PT/INR, D-dimer PT 27.5 Seconds (9.4-12.1) H 01/02/19 06:21 Consult Discharge Plan - Plan Referrals: Saritha Stephen MD [Primary Care Provider] - (please call the office when you get home to make a follow up appointment for 5-7 days) <Wendy Porter - Last Filed: 01/02/19 17:05> Hospitalist Progress Note - Encounter Date of Encounter: 01/02/19 - Exam Vitals: Temp Pulse Resp BP Pulse Ox 96.7 F L 53 16 123/71 93 01/02/19 15:27 01/02/19 15:27 01/02/19 15:27 01/02/19 15:27 01/02/19 07:01 - Assessment and Plan (1) Morbid obesity Current Visit: Yes Status: Chronic (2) Diabetes mellitus Current Visit: Yes Status: Acute (3) CAD (coronary artery disease) Current Visit: Yes Status: Acute (4) Atrial fibrillation with RVR Current Visit: Yes Status: Acute (5) Diastolic CHF Current Visit: Yes Status: Acute - Time Spent with Patient Total time spent is greater than 50% in coordination of care (as documented) at patient's floor/unit and/or counseling patient: Internal Medicine: Result - Labs CBC & Chem 7: 12/30/18 00:11 12/30/18 00:11 - ABG Interpretation ABG results: PT/INR, D-dimer PT 27.5 Seconds (9.4-12.1) H 01/02/19 06:21 - Attending Attestation I examined this patient and my medical decision-making was reviewed with the Resident Physician. I agree with the documented findings, disposition and treatment plan as described except to the extent set forth below. <Jimmy Mcfarlane - Last Filed: 01/02/19 13:17> (2) Diabetes mellitus Qualifiers: Diabetes mellitus type: type 2 Qualified Code(s): E11.9 - Type 2 diabetes mellitus without complications (3) CAD (coronary artery disease) Qualifiers: Coronary Disease-Associated Artery/Lesion type: unspecified vessel or lesion type [place] vs. transplanted heart: [place] heart Associated angina: without angina Qualified Code(s): I25.10 - Atherosclerotic heart disease of [place] coronary artery without angina pectoris (5) Diastolic CHF Qualifiers: Heart failure chronicity: chronic Qualified Code(s): I50.32 - Chronic diastolic (congestive) heart failure <Wendy Porter - Last Filed: 01/02/19 17:05> (2) Diabetes mellitus Qualifiers: Diabetes mellitus type: type 2 Qualified Code(s): E11.9 - Type 2 diabetes mellitus without complications (3) CAD (coronary artery disease) Qualifiers: Coronary Disease-Associated Artery/Lesion type: unspecified vessel or lesion type [place] vs. transplanted heart: [place] heart Associated angina: without angina Qualified Code(s): I25.10 - Atherosclerotic heart disease of [place] coronary artery without angina pectoris (5) Diastolic CHF Qualifiers: Heart failure chronicity: chronic Qualified Code(s): I50.32 - Chronic diastolic (congestive) heart failure
[2019-01-02] MEDS: Metoprolol 100 MG TABLET PO SCH ×2 (10:02→20:10)
[2019-01-02] MEDS: Aspirin Enteric Coated 81 MG Tablet PO SCH (10:02)
[2019-01-02] MEDS: Diltiazem CD (24hr) 180 MG CAPSULE PO SCH (10:02)
[2019-01-02] MEDS: Insulin LISPRO 300 UNITS/3 ML VIAL SQ SCH ×4 (10:03→21:06)
[2019-01-02] MEDS: Magnesium Oxide 400 MG TABLET PO SCH (10:03)
--- NOTE | 2019-01-02 11:15 | Cardiology Progress Note ---
Date of Encounter: 01/02/19 Time of Encounter: 09:00 Assessment and Plan (1) PAF (paroxysmal atrial fibrillation) Current Visit: Yes Status: Chronic Per EP: -Admitted with a.fib RVR. Known PAF. -Started on rhythmol 150mg, had recurrence of a.fib, and rhythmol was increased to 225mg, has received 3 total doses of increased rhythmol. -ECG admission with a.fib, RVR, HR 144, QRS 122ms. -ECG 2/1 s/p 2 doses of rhythmol with SB, HR 56. QRS 104ms. -EGC 2/2 s/p 5 doses with a.fib, HR 63. QRS 95ms. -ECG 2/3 s/p 2 total doses of increased rhythmol with SB, HR 55. QRS 108ms. -ECG 2/4 s/p 5 total doses of 225mg rhythmol with atrial flutter, HR 61. QRS 121. -On cardizem CD 360mg and lopressor 100mg BID. ON coumadin for anticoagulation, follows with coumadin clinic. INR today 2.4, 12/12 2.9, 11/14/18 3. -TTE 12/2017 with LVEF 55-60%, moderately enlarged left atrial size, no wall motion abnormalities. -LHC 12/2017 with 30-40% mid LAD, 20% OM1, 30% RPDA. -ECGs reviewed with Dr.JOhn Bravo, who recommends increasing rhythmol to 300mg [id number], first dose now. Patient and family updated and agreeable. -Recommend CPAP. -ECG daily. Continuous telemetry. -Continue home cardizem and lopressor. -Continue coumadin. -Will continue to monitor. (2) Encounter for monitoring anti-arrhythmic therapy Current Visit: Yes Status: Acute Per EP: -See PAF as above. Discussion w patient/family: The assessment and plan as outlined above was discussed with the patient and/or family members who expressed understanding and agreement. All questions were answered. Thank you for involving us in the care of your patient. Please call with any questions. Discussed and reviewed with Dr.John Bravo. Subjective Principal diagnosis: a.fib Interval history: Patient reports current palpitations. Objective Vital Signs, Last 4 Hours Pulse BP 01/02/19 10:07 58 134/76 General: Conversant, No Apparent Distress HEENT: Atraumatic, Normocephaly, Mucus Membranes Moist Neck: No JVD, Normal carotid pulses Cardiac: Normal S1 and S2, No Murmur, Other (Regularly irregular) Lungs: Normal Breath Sounds, No Wheeze, Rales, Rhonchi Neuro: Alert and responsive, No focal deficits noted Abdomen: Soft, Non-Tender Skin: No rashes noted on visualized skin Musculoskeletal: No Chest Wall Tenderness Extremities: No Clubbing, No Cyanosis, Normal Pulses, Other (Mild bilateral pedal edema noted. ) Results 12/30/18 00:11 12/30/18 00:11 Lab Results 01/02/19 06:21 INR 2.4 Active Medications Aspirin (Aspirin Ec) 81 mg PO DAILY [facility] Stop: 07/01/19 09:01 Last Admin: 01/02/19 10:02 Dose: 81 mg Atorvastatin Calcium (Lipitor) 20 mg PO HS [facility] Stop: 06/30/19 21:01 Last Admin: 01/01/19 19:35 Dose: 20 mg Dextrose/Water (Dextrose 50% (Syg)) 25 ml IVP AD PRN PRN Reason: Hypoglycemia Stop: 06/30/19 12:09 Diltiazem HCl (Cardizem Cd) 360 mg PO DAILY [facility] Stop: 07/01/19 09:01 Last Admin: 01/02/19 10:02 Dose: 360 mg Furosemide (Lasix) 20 mg PO DAILY PRN PRN Reason: Edema Stop: 06/30/19 12:05 Glucagon (Glucagen) 1 mg IM ONCE PRN PRN Reason: Hypoglycemia Stop: 06/30/19 12:09 Glucose (Gluctose) 15 gm PO ONCE PRN PRN Reason: Hypoglycemia Stop: 06/30/19 12:09 Glucose (Gluctose) 30 gm PO ONCE PRN PRN Reason: Hypoglycemia Stop: 06/30/19 12:09 Dextrose (Dextrose 5%) 1,000 mls @ 100 mls/hr IVC .Q10H PRN PRN Reason: HYPOGLYCEMIA Stop: 06/30/19 12:09 Insulin Detemir (Levemir) 30 unit SQ QPM [facility] Stop: 06/30/19 18:01 Last Admin: 01/01/19 16:31 Dose: 30 unit Insulin Human Lispro (Humalog) 0 units SQ TIDAC [facility]; Protocol Stop: 06/30/19 16:31 Last Admin: 01/02/19 10:03 Dose: Not Given Insulin Human Lispro (Humalog) 0 units SQ HS [facility]; Protocol Stop: 07/02/19 21:01 Last Admin: 01/01/19 19:36 Dose: 2 units Lisinopril (Zestril) 10 mg PO DAILY [facility]; Protocol Stop: 07/01/19 09:01 Last Admin: 01/02/19 10:02 Dose: 10 mg Magnesium Oxide (Mag-Ox) 400 mg PO DAILY [facility] Stop: 07/01/19 09:01 Last Admin: 01/02/19 10:03 Dose: 400 mg Metoprolol Tartrate (Lopressor) 100 mg PO BID [facility] Stop: 06/30/19 21:01 Last Admin: 01/02/19 10:02 Dose: 100 mg Naloxone HCl (Narcan) 0.4 mg IVP Q2MIN PRN PRN Reason: SEE COMMENTS Stop: 06/30/19 12:04 Propafenone HCl (Rhythmol) 300 mg PO Q8HR [facility] Stop: 07/04/19 09:52 Last Admin: 01/02/19 10:03 Dose: 300 mg Warfarin Sodium (Coumadin Perpt) 1 each PO DAILY@1800 PRN PRN Reason: SEE COMMENTS Stop: 07/01/19 18:01 - Imaging and Cardiology Chest Xray: report reviewed Stress Test: report reviewed Echo: report reviewed Cardiac cath: report reviewed - EKG Interpretation EKG results cardiology: other (Telemetry reviewed with average HR previous 12 hours noted to be 56, SB, PAF. PVCs noted.) Consult Discharge Plan - Plan Referrals: Saritha Setphen MD [Primary Care Provider] - (please call the office when you get home to make a follow up appointment for 5-7 days)
[2019-01-02] MEDS: Insulin DETEMIR 100 UNIT/ML X5UNITS SQ SCH (16:58)
--- NOTE | 2019-01-02 17:29 | Electrocardiograph Report ---
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
--- NOTE | 2019-01-02 17:35 | Electrocardiograph Report ---
[address] [address] Test Date: 2018-12-31 Pat Name: Solo Padilla Department: 111 Room: [facility] Gender: M Section [employer] Worker: CC : 1955 Requested By: Teresa Ontiveros Order Number: [id number] Reading MD: Wendy Enamorado Measurements Intervals [place] Rate: 54 P: 25 W[place]: 199 QRS: -1 QRSD: 94 T: 46 QT: 453 QTc: 440 Interpretive Statements SINUS BRADYCARDIA Electronically Signed On 01-02-2019 17:33:40 EST by Wendy Enamoardo
[2019-01-02] MEDS ORDERED: *HR* Warfarin 7.5 MG TABLET PO ONE (18:00)
[2019-01-03 05:25] LABS: INR 2.6; Prothrombin Time 29.5 Seconds (9.4-12.1)
--- NOTE | 2019-01-03 08:39 | Internal Med Progress Note ---
Hospitalist Progress Note - Encounter Date of Encounter: 01/03/19 - Subjective Interval History: Pt seen and examined at bedside. No new or acute complaints. Denies any chest pain, palpitations, dizziness, or syncope. Denies any fever, chills, shortness of breath, cough, abdominal pain, nausea, vomiting, urinary symptoms, diarrhea, or constipation. - Exam Vitals: Temp Pulse Resp BP Pulse Ox 98.0 F 54 16 124/73 96 01/03/19 08:08 01/03/19 08:08 01/03/19 08:08 01/03/19 08:08 01/03/19 08:08 - Assessment and Plan (1) Atrial fibrillation with RVR Current Visit: Yes Status: Acute (2) Diabetes mellitus Current Visit: Yes Status: Acute (3) CAD (coronary artery disease) Current Visit: Yes Status: Acute (4) Diastolic CHF Current Visit: Yes Status: Acute (5) Morbid obesity Current Visit: Yes Status: Chronic - Time Spent with Patient Total time spent is greater than 50% in coordination of care (as documented) at patient's floor/unit and/or counseling patient: Internal Medicine: Result - Labs CBC & Chem 7: 12/30/18 00:11 12/30/18 00:11 - ABG Interpretation ABG results: PT/INR, D-dimer PT 29.5 Seconds (9.4-12.1) H 01/03/19 05:04 Consult Discharge Plan - Plan Referrals: Saritha Stephen MD [Primary Care Provider] - (please call the office when you get home to make a follow up appointment for 5-7 days) (2) Diabetes mellitus Qualifiers: Diabetes mellitus type: type 2 Qualified Code(s): E11.9 - Type 2 diabetes mellitus without complications (3) CAD (coronary artery disease) Qualifiers: Coronary Disease-Associated Artery/Lesion type: unspecified vessel or lesion type [place] vs. transplanted heart: [place] heart Associated angina: without angina Qualified Code(s): I25.10 - Atherosclerotic heart disease of [place] coronary artery without angina pectoris (4) Diastolic CHF Qualifiers: Heart failure chronicity: chronic Qualified Code(s): I50.32 - Chronic diastolic (congestive) heart failure
[2019-01-03] MEDS: Diltiazem CD (24hr) 180 MG CAPSULE PO SCH (08:50)
[2019-01-03] MEDS: Metoprolol 100 MG TABLET PO SCH (08:51)
[2019-01-03] MEDS: Magnesium Oxide 400 MG TABLET PO SCH (08:51)
[2019-01-03] MEDS: Aspirin Enteric Coated 81 MG Tablet PO SCH (08:51)
[2019-01-03] MEDS: Insulin LISPRO 300 UNITS/3 ML VIAL SQ SCH ×3 (08:52→17:19)
--- NOTE | 2019-01-03 12:59 | Cardiology Progress Note ---
Date of Encounter: 01/03/19 Time of Encounter: 08:30 Assessment and Plan (1) PAF (paroxysmal atrial fibrillation) Current Visit: Yes Status: Chronic Per EP: -Admitted with a.fib RVR. Known PAF. -Started on rhythmol 150mg, had recurrence of a.fib, and rhythmol was increased to 225mg, has received 3 total doses of increased rhythmol. -ECG admission with a.fib, RVR, HR 144, QRS 122ms. -ECG 2/1 s/p 2 doses of rhythmol with SB, HR 56. QRS 104ms. -EGC 2/2 s/p 5 doses with a.fib, HR 63. QRS 95ms. -ECG 2/3 s/p 2 total doses of increased rhythmol with SB, HR 55. QRS 108ms. -ECG 2/4 s/p 5 total doses of 225mg rhythmol with atrial flutter, HR 61. QRS 121. -ECG 2/5 s/p 3 totoal doses of 300mg rhythmol with SB, HR 52. QRS 111ms. -On cardizem CD 360mg and lopressor 100mg BID. ON coumadin for anticoagulation, follows with coumadin clinic. INR today 2.6, 12/12 2.9, 11/14/18 3. -TTE 12/2017 with LVEF 55-60%, moderately enlarged left atrial size, no wall motion abnormalities. -LHC 12/2017 with 30-40% mid LAD, 20% OM1, 30% RPDA. -ECGs reviewed with Dr.JOhn Bravo, continue rhythmol 300mg. 5th dose of 300mg scheduled for 1600 today. Will obtain ECG after 5th dose, if SR and QRS stable, cardiology will sign off. -Continuous telemetry. -With SB, will decrease lopressor to 50mg BID. Continue cardizem 360mg. -Continue coumadin. -Will continue to monitor. (2) Encounter for monitoring anti-arrhythmic therapy Current Visit: Yes Status: Acute Per EP: -See PAF as above. Discussion w patient/family: The assessment and plan as outlined above was discussed with the patient and/or family members who expressed understanding and agreement. All questions were answered. Thank you for involving us in the care of your patient. Please call with any questions. Discussed and reviewed with Dr.John Bravo. Subjective Principal diagnosis: a.fib Interval history: Patient denies current symptoms, states he feels well today. Objective Vital Signs, Last 4 Hours Pulse Resp BP Pulse Ox 01/03/19 12:10 55 16 126/70 97 General: Conversant, No Apparent Distress HEENT: Atraumatic, Normocephaly, Mucus Membranes Moist Neck: No JVD, Normal carotid pulses Cardiac: Reg Rate and Rhythm, Normal S1 and S2, No Murmur Lungs: Normal Breath Sounds, No Wheeze, Rales, Rhonchi Neuro: Alert and responsive, No focal deficits noted Abdomen: Soft, Non-Tender Skin: No rashes noted on visualized skin Musculoskeletal: No Chest Wall Tenderness Extremities: No Clubbing, No Cyanosis, Normal Pulses, Other (Mild bilateral pedal edema noted, non-pitting. ) Results 12/30/18 00:11 12/30/18 00:11 Lab Results 01/03/19 05:04 INR 2.6 Active Medications Aspirin (Aspirin Ec) 81 mg PO DAILY [facility] Stop: 07/01/19 09:01 Last Admin: 01/03/19 08:51 Dose: 81 mg Atorvastatin Calcium (Lipitor) 20 mg PO HS [facility] Stop: 06/30/19 21:01 Last Admin: 01/02/19 20:10 Dose: 20 mg Dextrose/Water (Dextrose 50% (Syg)) 25 ml IVP AD PRN PRN Reason: Hypoglycemia Stop: 06/30/19 12:09 Diltiazem HCl (Cardizem Cd) 360 mg PO DAILY [facility] Stop: 07/01/19 09:01 Last Admin: 01/03/19 08:50 Dose: 360 mg Furosemide (Lasix) 20 mg PO DAILY PRN PRN Reason: Edema Stop: 06/30/19 12:05 Glucagon (Glucagen) 1 mg IM ONCE PRN PRN Reason: Hypoglycemia Stop: 06/30/19 12:09 Glucose (Gluctose) 15 gm PO ONCE PRN PRN Reason: Hypoglycemia Stop: 06/30/19 12:09 Glucose (Gluctose) 30 gm PO ONCE PRN PRN Reason: Hypoglycemia Stop: 06/30/19 12:09 Dextrose (Dextrose 5%) 1,000 mls @ 100 mls/hr IVC .Q10H PRN PRN Reason: HYPOGLYCEMIA Stop: 06/30/19 12:09 Insulin Detemir (Levemir) 30 unit SQ QPM [facility] Stop: 06/30/19 18:01 Last Admin: 01/02/19 16:58 Dose: 30 unit Insulin Human Lispro (Humalog) 0 units SQ TIDAC [facility]; Protocol Stop: 06/30/19 16:31 Last Admin: 01/03/19 12:35 Dose: 6 units Insulin Human Lispro (Humalog) 0 units SQ HS [facility]; Protocol Stop: 07/02/19 21:01 Last Admin: 01/02/19 21:06 Dose: 3 units Lisinopril (Zestril) 10 mg PO DAILY [facility]; Protocol Stop: 07/01/19 09:01 Last Admin: 01/03/19 08:51 Dose: 10 mg Magnesium Oxide (Mag-Ox) 400 mg PO DAILY [facility] Stop: 07/01/19 09:01 Last Admin: 01/03/19 08:51 Dose: 400 mg Metoprolol Tartrate (Lopressor) 50 mg PO BID [facility] Stop: 07/05/19 21:01 Naloxone HCl (Narcan) 0.4 mg IVP Q2MIN PRN PRN Reason: SEE COMMENTS Stop: 06/30/19 12:04 Propafenone HCl (Rhythmol) 300 mg PO Q8HR [facility] Stop: 07/04/19 09:52 Last Admin: 01/03/19 08:50 Dose: 300 mg Warfarin Sodium (Coumadin Perpt) 1 each PO DAILY@1800 PRN PRN Reason: SEE COMMENTS Stop: 07/01/19 18:01 - Imaging and Cardiology Chest Xray: report reviewed Stress Test: report reviewed Echo: report reviewed Cardiac cath: report reviewed - EKG Interpretation EKG results cardiology: other (Telemetry reviewed with average HR previous 12 hours noted to be 50, SB. PVCs and PACs noted.) Consult Discharge Plan - Plan Referrals: Saritha Stephen MD [Primary Care Provider] - (please call the office when you get home to make a follow up appointment for 5-7 days)
--- NOTE | 2019-01-03 16:19 | Discharge Summary ---
<DenysNimcoJimmy A - Last Filed: 01/03/19 21:44> - NOTES TO OUTPATIENT PROVIDER Notes to Outpatient Provider: Mr. Padilla was admitted on 12/29/18 for recurrent A. fib with RVR. Patient states he had been experiencing palpitations for approximately 36 hours prior to arrival with some shortness of breath and chest discomfort. Per cardiology recommendations patient was started on Rythmol which required titration over a period of 2 days for rhythm control. Upon discharge patient was instructed continue his home Cardizem 360mg, but instructed to decrease his home metoprolol to 50mg twice a day. Orders not resulted at time of discharge: Pending orders 01/03/19 17:00 ECG 12 lead ECG [ECG] Routine 01/04/19 04:00 BMP [Basic Metabolic Panel] AM 0400 Complete Blood Count [HEME] AM 0400 PT/INR [Prothrombin Time INR] [COAG] AM 0400 01/04/19 06:00 ECG 12 lead ECG [ECG] AM 0600 01/05/19 04:00 PT/INR [Prothrombin Time INR] [COAG] AM 0400 01/05/19 06:00 ECG 12 lead ECG [ECG] AM 0600 01/06/19 04:00 PT/INR [Prothrombin Time INR] [COAG] AM 0400 Date of Encounter: 01/03/19 Time of Encounter: 09:30 - Discharge Diagnosis (1) Atrial fibrillation with RVR Priority: Primary Status: Acute Assessment and Plan: HR in the 140s on admission Received 15mg of cardizem and started on a cardizem drip which has since been di scontinued Cardiology was consulted Continue home Cardizem PO Started Rhythmol, eventually titrated to 300mg Q8HR Home metoprolol dose decreased to 50mg BID (2) Diabetes mellitus Priority: Secondary Status: Acute Assessment and Plan: Resume home regimen of Amaryl and Metformin Qualifiers: Diabetes mellitus type: type 2 Qualified Code(s): E11.9 - Type 2 diabetes mellitus without complications (3) CAD (coronary artery disease) Priority: Secondary Status: Acute Assessment and Plan: Continue home ASA and statin Metoprolol dose decreased to 50mg BID Qualifiers: Coronary Disease-Associated Artery/Lesion type: unspecified vessel or lesion type [place] vs. transplanted heart: [place] heart Associated angina: without angina Qualified Code(s): I25.10 - Atherosclerotic heart disease of [place] coronary artery without angina pectoris (4) Morbid obesity Priority: Secondary Status: Chronic Assessment and Plan: Chronic issue (5) Diastolic CHF Priority: Secondary Status: Acute Assessment and Plan: Not in acute exacerbation Echo from 12/2017 showed LVEF 55-60% with moderately enlarged left atrium Continue home Lasix, which he takes as prn Qualifiers: Heart failure chronicity: chronic Qualified Code(s): I50.32 - Chronic diastolic (congestive) heart failure Hospital course: Mr. Padilla is a 63 year old male with PMH of recurrent afib with RVR, hypertension , diabetes originally presented on 12/29/18 to the ED with complaints of palpitations and elevated heart rate for 36hrs. Patient notes he had been having these symptoms intermittently. Of note he was recently admitted in september where he was offered cardioversion/ablation but says he wanted to think about it. Per cardiology, the patient was started on Rhythmol 150mg Q8hr with continuous monitoring. Pt continued to have paroxysmal afib with RVR and Rhythmol was titrated up to 300mg Q8hr. The patient's blood pressure was decreased at this dose of Rhythmol, but improved when the pt's home dose of Metoprolol was decreased to 50mg BID. The patient was observed on telemetry throughout his stay with daily EKGs. At time of discharge pt was instructed to continue Rhythmol at home, along with Cardizem 360mg, but decreased Metoprolol to 50mg BID. Discharge discussed with: patient, family, nurse, cardiology consultants - Time Spent with Patient Total time spent providing and/or coordinating discharge services: - Discharge Medications Prescriptions: Metoprolol [Lopressor] 50 mg PO BID #60 tablet Propafenone HCl 300 mg PO Q8H #90 tablet Home Medications: Aspirin Enteric Coated [Aspirin EC] 81 mg PO DAILY 01/06/18 [History] Furosemide [Lasix] 20 mg PO DAILY PRN 01/06/18 [History] Garlic 500 mg PO DAILY 01/06/18 [History] Glimepiride [Amaryl] 2 mg PO BID 01/06/18 [History] Insulin Glargine,Hum.rec.anlog [Lantus Solostar] 30 unit SQ QPM 01/06/18 [History] Lisinopril [Zestril] 10 mg PO DAILY 01/06/18 [History] [place]-3/Dha/Epa/Fish Oil [Fish Oil 1,000 mg Softgel] 1,000 mg PO DAILY 01/06/18 [History] Warfarin [Coumadin] 7.5 mg PO DAILY 01/06/18 [History] Rosuvastatin Calcium [Crestor] 10 mg PO QPM 10/04/18 [History] Diltiazem HCl [Cardizem LA] 360 mg PO QAM 12/29/18 [History] Magnesium Oxide [Magnesium] 400 mg PO DAILY 12/29/18 [History] Metformin HCl [Fortamet] 500 mg PO BID 12/29/18 [History] Metoprolol [Lopressor] 50 mg PO BID #60 tablet 01/03/19 [Rx] Propafenone HCl 300 mg PO Q8H #90 tablet 01/03/19 [Rx] Allergies/Adverse Reactions: Allergy/AdvReac Type Severity Reaction Status Date / Time Sulfa (Sulfonamide Allergy Unknown See Verified 10/11/18 09:12 Antibiotics) Comments codeine AdvReac Hallucinati Verified 10/11/18 09:12 ng Date of admission: 12/29/18 12:57 Primary care physician: Saritha Stephen MD Consults: 12/29/18 12:02 Consult to Cardiology [CONS] Routine Comment: Consulting Provider: Cardiology Kathy Reason for Consult: recurrent afib with RVR Call Completed: No 12/30/18 16:44 Consult to Nurse Navigator [CONS] Routine Comment: CHF 01/02/19 12:19 Consult to Electrophysiology (EP) [CONS] Routine Consulting Provider: Electrophysiology Kathy Reason for Consult: atrial fibrillation Call Completed: Yes Discharging clinician: Jimmy Brooks Constitutional Vitals: Temp Pulse Resp BP Pulse Ox 98.0 F 55 16 126/70 97 01/03/19 08:08 01/03/19 12:10 01/03/19 12:10 01/03/19 12:10 01/03/19 12:10 General appearance: Present: A&O X 2, A&O X 3, morbidly obese Exam: General: obese male in no acute distress Head: normocephalic and atraumatic Eyes: PERRL, EOMI, sclera anicteric, conjunctiva pink Neck: supple, trachea midline Lungs: CTA bilaterally. non-labored breathing. No wheezes, rales, or rhonchi Heart: normal rate, irregularly irregular rhythm +s1 +s2 No murmurs, clicks, or rubs GI: abdomen soft, non-tender, non-distended. normoactive bowel sounds Extremities: warm, peripheral pulses palpable and symmetrical. No edema or cyanosis Neuro: A&Ox3. no focal deficits. no speech difficulty or abnormality Skin: warm, dry, intact - Patient Status Disposition: Home, Self-Care Condition: Good Functional capacity at discharge: independent ambulation Overall status at discharge: patient is back to baseline - Discharge Instructions Instructions: Metoprolol (By mouth), Warfarin (By mouth), Propafenone (By mouth), Heart Failure (DC), Atrial Fibrillation (DC), Diabetes Mellitus Type 2 in Adults (DC), Chronic Hypertension (DC) Follow Up With: Saritha Stephen MD [Primary Care Provider] - (please call the office when you get home to make a follow up appointment for 5-7 days) Garry Bravo MD [Partnered Physician] - (office will call patient at home with appointment date and time) Additional Instructions: coumadin clinic appointment is Dec 7 @8:30 - Diet and Activity Activity: increase activity as tolerated, resume usual activities as tolerated Diet: diabetic diet <Wendy Porter - Last Filed: 01/04/19 04:32> Orders not resulted at time of discharge: Pending orders 01/03/19 17:00 ECG 12 lead ECG [ECG] Routine Date of Encounter: 01/04/19 - Discharge Diagnosis (1) Morbid obesity Status: Chronic (2) Diabetes mellitus Status: Acute Qualifiers: Diabetes mellitus type: type 2 Qualified Code(s): E11.9 - Type 2 diabetes mellitus without complications (3) CAD (coronary artery disease) Status: Acute Qualifiers: Coronary Disease-Associated Artery/Lesion type: unspecified vessel or lesion type [place] vs. transplanted heart: [place] heart Associated angina: without angina Qualified Code(s): I25.10 - Atherosclerotic heart disease of [place] coronary artery without angina pectoris (4) Atrial fibrillation with RVR Status: Acute (5) Diastolic CHF Status: Acute Qualifiers: Heart failure chronicity: chronic Qualified Code(s): I50.32 - Chronic diastolic (congestive) heart failure Hospital course: Mr. Padilla is a 63 year old male - Time Spent with Patient Total time spent providing and/or coordinating discharge services: Date of admission: 12/29/18 12:57 Primary care physician: Saritha Stephen MD Consults: 12/29/18 12:02 Consult to Cardiology [CONS] Routine Comment: Consulting Provider: Cardiology Kathy Reason for Consult: recurrent afib with RVR Call Completed: No 12/30/18 16:44 Consult to Nurse Navigator [CONS] Routine Comment: CHF 01/02/19 12:19 Consult to Electrophysiology (EP) [CONS] Routine Consulting Provider: Electrophysiology Kathy Reason for Consult: atrial fibrillation Call Completed: Yes - Constitutional Vitals: Temp Pulse Resp BP Pulse Ox 98.0 F 57 17 127/74 97 01/03/19 08:08 01/03/19 17:03 01/03/19 17:03 01/03/19 17:03 01/03/19 17:03 - Attending Attestation I examined this patient and my medical decision-making was reviewed with the Resident Physician. I agree with the documented findings, disposition and treatment plan as described except to the extent set forth below.
[2019-01-03 17:04] VITALS: BP 127/74
[2019-01-03] MEDS: Insulin DETEMIR 100 UNIT/ML X5UNITS SQ SCH (17:20)
--- NOTE | 2019-01-03 17:27 | Event Note ---
Date of Encounter: 01/03/19 Time of Encounter: 17:25 - Cardiology Event Note ECG reviewed post 5 doses of rhythmol 300mg with SB, HR 57, PAC noted, QRS 117ms. QRS has remained stable on rhythmol 300mg. Lopressor decreased to 50mg BID. Cardiology will sign off, will arrange outpatient follow up.
[2019-01-03] MEDS ORDERED: *HR* Warfarin 7.5 MG TABLET PO ONE (18:00)
--- NOTE | 2019-01-03 23:47 | Electrocardiograph Report ---
[address] [place], [place] [address] Test Date: 2019-01-03 Pat Name: Solo Padilla Department: 111 Room: [facility] Gender: M Transportation Aid: : 1955 Requested By: Teresa Ontiveros Order Number: [id number] Reading MD: Jane Bravo Measurements Intervals [place] Rate: 52 P: RI: 0 QRS: 5 QRSD: 111 T: 48 QT: 458 QTc: 438 Interpretive Statements SINUS BRADYCARDIA MODERATE INTRAVENTRICULAR CONDUCTION DELAY ABNORMAL RHYTHM ECG Electronically Signed On 01-03-2019 23:45:33 EST by Jane Bravo
--- NOTE | 2019-01-04 14:16 | Electrocardiograph Report ---
[address] [place], [place] [address] Test Date: 2019-01-01 Pat Name: Solo Padilla Department: 111 Room: [facility] Gender: M Vertical Punch Operator: : 1955 Requested By: Teresa Ontiveros Order Number: [id number] Reading MD: Wendy Enamorado Measurements Intervals [place] Rate: 58 P: 61 MS: 211 QRS: -1 QRSD: 108 T: 43 QT: 452 QTc: 449 Interpretive Statements SINUS BRADYCARDIA WITH FIRST DEGREE AV BLOCK Electronically Signed On 01-04-2019 14:14:45 EST by Wendy Enamoraod
--- NOTE | 2019-01-04 21:22 | Electrocardiograph Report ---
[address] [address] Test Date: 2019-01-02 Pat Name: Solo Padilla Department: 111 Room: [facility] Gender: M Dispatcher [place]: CC : 1955 Requested By: Teresa Ontiveros Order Number: [id number] Reading MD: Wendy Enamorado Measurements Intervals [place] Rate: 61 P: SC: 0 QRS: 2 QRSD: 121 T: 42 QT: 451 QTc: 454 Interpretive Statements ATRIAL FLUTTER WITH VARIABLE CONDUCTION MODERATE INTRAVENTRICULAR CONDUCTION DELAY Electronically Signed On 01-04-2019 21:20:43 EST by Wendy Enamorado
== END 2019-01-03 18:04 | disposition home or self-care (01) | DRG 201 ==
LOC: 2NENU 10:49 → EMEROOARM 10:49 → 2NENU 12:49 → SUATTDRO 12:57
PROVIDERS: ADMIT Student in an Organized Health Care Education/Training Program; ATTEND Student in an Organized Health Care Education/Training Program

== ENCOUNTER 2019-01-04 18:37 | Observation (INO) ==
[~2019-01-04 18:37] MED LIST: Warfarin perPT PO PRN
--- NOTE | 2019-01-04 19:14 | Emergency Department Note ---
Disposition Clinical Impression: Atrial fibrillation with RVR Disposition: Admitted As Inpatient Condition: Fair Forms: ED Satisfaction Letter Time of Disposition: 20:06 Arrhythmia/Palpitations HPI - General Chief Complaint: ED Arrhythmia/Palpitations Stated Complaint: Afib/JOCELYN Time Seen by Provider: 01/04/19 18:56 Source: patient Mode of arrival: ambulatory Limitations: no limitations Nursing Notes Reviewed: Yes Vital Signs Reviewed: Yes - History of Present Illness HPI Narrative: 63-year-old male with recent hospital course of A. fib RVR discharged yesterday presents for evaluation of A. fib. Patient did have paroxysmal A. fib. Patient was treated with medications and converted. States that the next time this happens he was going to get a letter will cardioverted. Patient noted that she became short of breath with palpitations earlier today. States he had chest pain with it. Also notes dyspnea mostly with exertion. States his heart rate does get up in the 120s with exertion. States that he is on Rythmol as well as Cardizem and metoprolol. Continues to take Coumadin. Patient denies any abdominal pain. No nausea vomiting or diaphoresis. No fevers. - Related Data Home Medications Medication Instructions Recorded Confirmed Aspirin Enteric Coated [Aspirin EC] 81 mg PO DAILY 01/06/18 12/29/18 Furosemide [Lasix] 20 mg PO DAILY PRN 01/06/18 12/29/18 Garlic 500 mg PO DAILY 01/06/18 12/29/18 Glimepiride [Amaryl] 2 mg PO BID 01/06/18 12/29/18 Insulin Glargine,Hum.rec.anlog 30 unit SQ QPM 01/06/18 12/29/18 [Lantus Solostar] Lisinopril [Zestril] 10 mg PO DAILY 01/06/18 12/29/18 [place]-3/Dha/Epa/Fish Oil [Fish Oil 1,000 mg PO DAILY 01/06/18 12/29/18 1,000 mg Softgel] Warfarin [Coumadin] 7.5 mg PO DAILY 01/06/18 12/29/18 Rosuvastatin Calcium [Crestor] 10 mg PO QPM 10/04/18 12/29/18 Diltiazem HCl [Cardizem LA] 360 mg PO QAM 12/29/18 12/29/18 Magnesium Oxide [Magnesium] 400 mg PO DAILY 12/29/18 12/29/18 Metformin HCl [Fortamet] 500 mg PO BID 12/29/18 12/29/18 Previous Rx's Medication Instructions Recorded Metoprolol [Lopressor] 50 mg PO BID #60 tablet 01/03/19 Propafenone HCl 300 mg PO Q8H #90 tablet 01/03/19 Allergies Allergy/AdvReac Type Severity Reaction Status Date / Time Sulfa (Sulfonamide Allergy Unknown See Verified 01/04/19 18:37 Antibiotics) Comments codeine AdvReac Hallucinati Verified 01/04/19 18:37 ng All systems ED: reviewed and negative except as stated. Constitutional: Denies: fever Cardiovascular: Reports: chest pain Respiratory: Reports: dyspnea. Denies: cough Gastrointestinal: Denies: abdominal pain, nausea, vomiting Past Medical History - Past Medical History Source: patient Medical history: Reports: atrial fibrillation, coronary artery disease, diabetes, hypertension, other Surgical history: Reports: vasectomy Psychiatric history: Reports: no psych history - Social History Smoking Status: Former smoker Smokeless Tobacco Status: No Alcohol use: Reports: none Drug use: Reports: none Physical Exam - General Limitations: no limitations General appearance: alert, in no apparent distress, obese - Head Head exam: atraumatic, normocephalic, normal inspection - Eye Eye exam: Present: normal appearance, PERRL, EOMI - ENT ENT exam: normal exam, mucous membranes moist - Neck Neck exam: Present: normal inspection - Chest Chest inspection: Present: normal inspection, symmetric chest wall rise - Respiratory Respiratory exam: Present: normal lung sounds bilaterally. Absent: respiratory distress - Cardiovascular Cardiovascular exam: Present: regular rate, irregular rhythm. Absent: systolic murmur - Abdominal Exam Abdominal exam: Present: soft, Non-Tender - Extremities Exam Extremities exam: Present: normal inspection. Absent: pedal edema - Expanded Lower Extremity Exam Neurovascular/Tendon exam: Present: normal capillary refill - Back Exam Back exam: Present: normal inspection - Neurological Exam Neurological exam: Present: alert, oriented X3, CN II-XII intact - Skin Skin exam: Present: warm, dry, intact, normal color Course Course Narrative: Patient seen and examined. Patient appears to be in no acute distress. EKG does not reveal A. fib RVR. We will check basic I lites chest x-ray. We will also talk with cardiology for ultimate disposition. - Reevaluation(s) Reevaluation #1: Patient converted without interventions. Will observe in the ED and ambulate to see if he doesn't convert back. Time: 19:47 Reevaluation #2: Resting comfortably. Time: 19:53 - Consultations Consultation #1: Spoke with Dr. Harrell, Cardiology who recommends admission and will cardiovert in the morning. Time: 19:17 Vital Signs Temperature 97.8 F 01/04/19 18:39 Pulse Rate 86 01/04/19 18:39 Respiratory Rate 18 01/04/19 18:39 Blood Pressure 159/89 01/04/19 18:39 O2 Sat by Pulse Oximetry 95 01/04/19 18:39 Temperature 97.8 F 01/04/19 18:58 Pulse Rate 88 01/04/19 19:40 Respiratory Rate 18 01/04/19 19:40 Blood Pressure 119/79 01/04/19 19:40 O2 Sat by Pulse Oximetry 92 01/04/19 19:40 Oxygen Delivery Oxygen Delivery Room Air Arrhythmia/Palpitations - MDM Narrative Medical decision making narrative: Patient seen and examined. Patient is noted to be in A. fib. Normal rate. Spoke with cardiology states that they will cardioverted in the morning. Patient get basic like choice. Patient had borderline low potassium as well as magnesium OB repleted. No concerns for ACS. - Lab Data Lab results reviewed: Yes I reviewed the patient's lab results. Result diagrams: 01/04/19 19:11 01/04/19 19:11 Lab Results 01/04/19 01/04/19 01/04/19 Range/Units 19:11 19:11 19:11 WBC 9.2 (4.3-11.1) K/mcL RBC 5.57 H (4.19-5.50) M/mcL Hgb 12.9 (12.9-16.9) g/dL Hct 41.1 (37.5-50.1) % MCV 73.8 L (83.0-100.0) fL MCH 23.2 L (28.0-33.3) pg MCHC 31.4 L (31.6-35.5) g/dL RDW 18.3 H (11.5-14.5) % Plt Count 215 (140-400) K/mcL MPV 8.9 L (9.4-12.4) fL Immature Gran % 0.2 (0-4) % Seg Neutrophils % 63.5 % Lymphocytes % 28.8 % Monocytes % 5.6 % Eosinophils % 1.2 % Basophils % 0.7 % Neutrophils # 5.9 (1.6-8.9) K/mcL Lymphocytes # 2.7 (0.6-4.6) K/mcL Monocytes # 0.5 (0.0-1.3) K/mcL Eosinophils # 0.1 (0.0-0.6) K/mcL Basophils # 0.1 (0.0-0.2) K/mcL PT (9.4-12.1) Seconds INR Sodium 137 (136-145) mEq/L Potassium 3.9 (3.5-5.1) mEq/L Chloride 103 (98-107) mEq/L Carbon Dioxide 23 (23-29) mEq/L BUN 16 (8-23) mg/dL Creatinine 1.10 (0.70-1.30) mg/dL Est GFR ( Amer) > 60 (> 60) Est GFR (Non-Af Amer) > 60 (> 60) BUN/Creatinine Ratio 15 (6-26) Glucose 240 H (70-105) mg/dL Calculated Osmolality 293 (280-300) Calcium 9.5 (8.6-10.3) mg/dL Phosphorus 3.3 (2.7-4.5) mg/dL Magnesium 1.9 (1.6-2.6) mg/dL Troponin I < 0.03 (< 0.04) ng/mL B-Natriuretic Peptide 367 H (Less than 100) pg/mL 01/04/19 Range/Units 19:11 WBC (4.3-11.1) K/mcL RBC (4.19-5.50) M/mcL Hgb (12.9-16.9) g/dL Hct (37.5-50.1) % MCV (83.0-100.0) fL MCH (28.0-33.3) pg MCHC (31.6-35.5) g/dL RDW (11.5-14.5) % Plt Count (140-400) K/mcL MPV (9.4-12.4) fL Immature Gran % (0-4) % Seg Neutrophils % % Lymphocytes % % Monocytes % % Eosinophils % % Basophils % % Neutrophils # (1.6-8.9) K/mcL Lymphocytes # (0.6-4.6) K/mcL Monocytes # (0.0-1.3) K/mcL Eosinophils # (0.0-0.6) K/mcL Basophils # (0.0-0.2) K/mcL PT 28.5 H (9.4-12.1) Seconds INR 2.5 Sodium (136-145) mEq/L Potassium (3.5-5.1) mEq/L Chloride (98-107) mEq/L Carbon Dioxide (23-29) mEq/L BUN (8-23) mg/dL Creatinine (0.70-1.30) mg/dL Est GFR ( Amer) (> 60) Est GFR (Non-Af Amer) (> 60) BUN/Creatinine Ratio (6-26) Glucose (70-105) mg/dL Calculated Osmolality (280-300) Calcium (8.6-10.3) mg/dL Phosphorus (2.7-4.5) mg/dL Magnesium (1.6-2.6) mg/dL Troponin I (< 0.04) ng/mL B-Natriuretic Peptide (Less than 100) pg/mL - EKG Data EKG attestation: Yes I reviewed and interpreted this EKG. Rate: normal Rhythm: A.Fib [place]/QRS: normal QTc: other (437) When compared to previous EKG there are: changes noted Interpretation: nonspecific ST-T wave changes
--- NOTE | 2019-01-04 19:26 | Emergency Department Note ---
Disposition Clinical Impression: Atrial fibrillation with RVR Disposition: Still a Patient Forms: ED Satisfaction Letter General Adult HPI - General Chief complaint: ED Arrhythmia/Palpitations Stated complaint: Afib/JOCELYN Time Seen by Provider: 01/04/19 18:56 Source: patient Mode of arrival: ambulatory Limitations: no limitations Nursing Notes Reviewed: Yes Vital Signs Reviewed: Yes - History of Present Illness HPI Narrative: Attestation note ED attending note I examined this patient and my medical decision-making was reviewed with the emergency medicine resident Dr. Jack Lopez . I agree with the documented findings, disposition and treatment plan as described except to the extent set forth below. Briefly: 63-year-old male recently discharged just yesterday from [facility] for atrial fibrillation he is on Rythmol for control. Noticed palpitations in his chest came in his A. fib RVR 125. Patient has undergone a workup which shows no acute abnormalities. We consulted cardiology who recommended admission 3 to be cardioverted in the morning. Patient so informed. Patient be admitted in stable condition Pain Scale: 2 - Related Data Home Medications Medication Instructions Recorded Confirmed Aspirin Enteric Coated [Aspirin EC] 81 mg PO DAILY 01/06/18 12/29/18 Furosemide [Lasix] 20 mg PO DAILY PRN 01/06/18 12/29/18 Garlic 500 mg PO DAILY 01/06/18 12/29/18 Glimepiride [Amaryl] 2 mg PO BID 01/06/18 12/29/18 Insulin Glargine,Hum.rec.anlog 30 unit SQ QPM 01/06/18 12/29/18 [Lantus Solostar] Lisinopril [Zestril] 10 mg PO DAILY 01/06/18 12/29/18 [place]-3/Dha/Epa/Fish Oil [Fish Oil 1,000 mg PO DAILY 01/06/18 12/29/18 1,000 mg Softgel] Warfarin [Coumadin] 7.5 mg PO DAILY 01/06/18 12/29/18 Rosuvastatin Calcium [Crestor] 10 mg PO QPM 10/04/18 12/29/18 Diltiazem HCl [Cardizem LA] 360 mg PO QAM 12/29/18 12/29/18 Magnesium Oxide [Magnesium] 400 mg PO DAILY 12/29/18 12/29/18 Metformin HCl [Fortamet] 500 mg PO BID 12/29/18 12/29/18 Previous Rx's Medication Instructions Recorded Metoprolol [Lopressor] 50 mg PO BID #60 tablet 01/03/19 Propafenone HCl 300 mg PO Q8H #90 tablet 01/03/19 Allergies Allergy/AdvReac Type Severity Reaction Status Date / Time Sulfa (Sulfonamide Allergy Unknown See Verified 01/04/19 18:37 Antibiotics) Comments codeine AdvReac Hallucinati Verified 01/04/19 18:37 ng Constitutional: Denies: fever Cardiovascular: Reports: chest pain Respiratory: Reports: dyspnea. Denies: cough Gastrointestinal: Denies: abdominal pain, nausea, vomiting Past Medical History - Past Medical History Medical history: Reports: atrial fibrillation, coronary artery disease, diabetes, hypertension, other Surgical history: Reports: vasectomy Psychiatric history: Reports: no psych history - Social History Smoking Status: Former smoker Smokeless Tobacco Status: No Alcohol use: Reports: none Drug use: Reports: none Physical Exam - General Limitations: no limitations General appearance: alert, in no apparent distress, obese Course Vital Signs Temperature 97.8 F 01/04/19 18:39 Pulse Rate 86 01/04/19 18:39 Respiratory Rate 18 01/04/19 18:39 Blood Pressure 159/89 01/04/19 18:39 O2 Sat by Pulse Oximetry 95 01/04/19 18:39 Temperature 97.8 F 01/04/19 18:58 Pulse Rate 86 01/04/19 18:58 Respiratory Rate 18 01/04/19 18:58 Blood Pressure 159/89 01/04/19 18:58 O2 Sat by Pulse Oximetry 95 01/04/19 18:58 Oxygen Delivery Oxygen Delivery Room Air
[2019-01-04 19:29] LABS: Basophils # 0.1 K/mcL (0.0-0.2); Basophils % 0.7 %; Eosinophils # 0.1 K/mcL (0.0-0.6); Eosinophils % 1.2 %; Hematocrit 41.1 % (37.5-50.1); Hemoglobin 12.9 g/dL (12.9-16.9); Immature Granulocytes % 0.2 % (0-4); Lymphocytes # 2.7 K/mcL (0.6-4.6); Lymphocytes % 28.8 %; Mean Corpuscular HGB Conc 31.4 g/dL (31.6-35.5); Mean Corpuscular Hemoglobin 23.2 pg (28.0-33.3); Mean Corpuscular Volume 73.8 fL (83.0-100.0); Mean Platelet Volume 8.9 fL (9.4-12.4); Monocytes # 0.5 K/mcL (0.0-1.3); Monocytes % 5.6 %; Neutrophils # 5.9 K/mcL (1.6-8.9); Platelet Count 215 K/mcL (140-400); Red Blood Count 5.57 M/mcL (4.19-5.50); Red Cell Distribution Width 18.3 % (11.5-14.5); Segmented Neutrophils % 63.5 %
[2019-01-04 19:41] LABS: INR 2.5; Prothrombin Time 28.5 Seconds (9.4-12.1)
[2019-01-04 19:49] LABS: BUN/Creatinine Ratio 15 (6-26); Blood Urea Nitrogen 16 mg/dL (8-23); Calcium 9.5 mg/dL (8.6-10.3); Carbon Dioxide 23 mEq/L (23-29); Chloride 103 mEq/L (98-107); Glucose 240 mg/dL (70-105); Magnesium 1.9 mg/dL (1.6-2.6); Osmolality,Calculated 293 (280-300); Phosphorous 3.3 mg/dL (2.7-4.5); Potassium 3.9 mEq/L (3.5-5.1); Sodium 137 mEq/L (136-145); Troponin I < 0.03 ng/mL (< 0.04); eGFR For Non-African Americans > 60 (> 60)
[2019-01-04] MEDS ORDERED: Naloxone 0.4 MG/ML INJ IVP PRN (20:30)
[2019-01-04] MEDS ORDERED: *HR* Dextrose 50 % in Water (Syg) 50 ML SYRINGE IVP PRN (20:34)
[2019-01-04] MEDS ORDERED: D5% in Water 1,000 ML IVC PRN (20:34)
[2019-01-04] MEDS ORDERED: Dextrose Gel 15 GM/37.5 ML TUBE PO PRN ×2 (20:34)
--- NOTE | 2019-01-04 21:59 | Internal Med History&Physical ---
<George Dodson - Last Filed: 01/05/19 00:27> Date of Encounter: 01/05/19 Time of Encounter: 21:00 Internal Medicine - H&P: HPI Chief complaint: Afib palpitations Admitted From: Home Plans for Post Hospital Care: Home History of present illness: Mr. Padilla is a 63 year old male with pmh significant for pAfib anticoagulated on warfarin, CAD without prior PCI, DM on PO and insulin management, and HTN. He was d/c from [place] yesterday after being amitted for recurrent Afib RVR. Prior to d/c he was placed on new antiarrhythmic propafenone and adjustment to rate control meds. He was in NSR and rate controlled at time of d/c. This morning when he woke up and was making breakfast ~0615 he experienced fatigue, palpitations, intermittent dyspnea with exertion, lightheadedness and checked his HR which at the time was 80-100. His HR does climb higher with exertion and gets more dyspneic at that time. He denies subjective fevers/chills, diplopia, blurry vision, chest pain, pleuritic chest pain, dyspnea at rest, diaphoresis, N/V, abdominal pain, increased edema, or syncope. Within the ED he initially had HR in 120's which lowered to a normal rate without intervention, EKG showing Afib with normal rate, labs mostly unremarkable with K 3.9, Mg 1.9, INR 2.5, and glucose 240. K and Mg were repleated in ED for goal K >4, Mg >2. Cardiology was consulted with plans to cardiovert him in the morning. Past Med Surg Social Fam HX - Past Medical History Medical history: atrial fibrillation, coronary artery disease, diabetes, hypertension, other Additional medical history: degenerative disc disease Psychiatric history: no psych history - Past Surgical History Surgical History: vasectomy - Social History Smoking Status: Former smoker Smokeless Tobacco Status: No Alcohol use: none Drug use: none - Family History Mother Family Member Ethnicity: Non- Living Status: Hx Family Cardiac Disorders: No Father Living Status: Hx Family Cardiac Disorders: No Hx Family Cancer: Yes (Lung CA) Internal Medicine - H&P: Meds Aspirin Enteric Coated [Aspirin EC] 81 mg PO DAILY 01/06/18 [History] Furosemide [Lasix] 20 mg PO DAILY PRN 01/06/18 [History] Garlic 500 mg PO DAILY 01/06/18 [History] Glimepiride [Amaryl] 2 mg PO BID 01/06/18 [History] Insulin Glargine,Hum.rec.anlog [Lantus Solostar] 30 unit SQ QPM 01/06/18 [History] Lisinopril [Zestril] 10 mg PO DAILY 01/06/18 [History] [place]-3/Dha/Epa/Fish Oil [Fish Oil 1,000 mg Softgel] 1,000 mg PO DAILY 01/06/18 [History] Warfarin [Coumadin] 7.5 mg PO MOTUTHSA 01/06/18 [History] Rosuvastatin Calcium [Crestor] 10 mg PO QPM 10/04/18 [History] Diltiazem HCl [Cardizem LA] 360 mg PO QAM 12/29/18 [History] Magnesium Oxide [Magnesium] 400 mg PO DAILY 12/29/18 [History] Metoprolol [Lopressor] 50 mg PO BID #60 tablet 01/03/19 [Rx] Propafenone HCl 300 mg PO Q8H #90 tablet 01/03/19 [Rx] Metformin HCl 1,000 mg PO BID 01/04/19 [History] Warfarin [Coumadin] 10 mg PO SUWEFR 01/04/19 [History] Allergy/AdvReac Type Severity Reaction Status Date / Time Sulfa (Sulfonamide Allergy Unknown See Verified 01/04/19 18:37 Antibiotics) Comments codeine AdvReac Hallucinati Verified 01/04/19 18:37 ng All Systems PM: A 10-system review of systems was performed and is negative for pertinent findings except as documented above in the HPI. - Constitutional Vitals: Temp Pulse Resp BP Pulse Ox 97.8 F 79 16 130/88 96 01/04/19 18:58 01/04/19 20:45 01/04/19 20:45 01/04/19 20:45 01/04/19 20:45 General appearance: Present: cooperative, A&O X 3, pleasant, no acute distress, answers questions appropriately Exam: - - Head Head exam: Present: atraumatic, normal inspection, normocephalic - Eye Eye exam: Present: normal appearance (R eye deviation). Absent: scleral icterus - ENT ENT exam: Present: mucous membranes moist - Neck Neck exam general surgery: Present: supple, trachea midline - Respiratory Respiratory exam: Present: CTAB. Absent: accessory muscle use, chest wall tenderness, decreased breath sounds, prolonged expiratory phase, rales, respiratory distress, rhonchi, stridor, wheezes, tachypnea - Cardiovascular Cardiovascular exam: Present: irregular rhythm (regular rate), +S1, +S2. Absent: bradycardia, clicks, diastolic murmur, distant heart sounds, gallop, JVD, RRR, rubs, +S3, +S4, systolic murmur, tachycardia - GI/Abdominal GI/Abdominal exam: Present: soft, no peritoneal signs. Absent: distended, firm, guarding, rebound, rigid, tenderness - Extremities Exam Extremities exam: Present: normal capillary refill, normal inspection, pedal edema (trace to 1+), warm, radial pulses palpable and symmetrical. Absent: calf tenderness, cyanotic, full ROM, joint swelling, mottling, tenderness - Neurological Exam Neurological exam: Present: alert, CN II-XII intact, oriented X3, no focal deficits. Absent: facial droop, speech deficit - Psychiatric Psychiatric exam: Present: normal affect, normal mood - Skin Skin exam: Present: dry, intact, normal color, warm. Absent: abrasion, cyanosis, diaphoretic, erythema, excoriation, mottled, pallor, petechiae, rash, urticaria, vesicles Internal Med - H&P Results - Labs CBC & Chem 7: 01/04/19 19:11 01/04/19 19:11 Labs: Short CBC 01/04/19 Range/Units 19:11 WBC 9.2 (4.3-11.1) K/mcL Hgb 12.9 (12.9-16.9) g/dL Hct 41.1 (37.5-50.1) % Plt Count 215 (140-400) K/mcL Neutrophils # 5.9 (1.6-8.9) K/mcL BMP 01/04/19 19:11 Sodium 137 Potassium 3.9 Chloride 103 Carbon Dioxide 23 BUN 16 Creatinine 1.10 Glucose 240 H Calcium 9.5 Cardiac Enzymes 01/04/19 Range/Units 19:11 Troponin I < 0.03 (< 0.04) ng/mL - Assessment and plan (1) PAF (paroxysmal atrial fibrillation) Current Visit: No Status: Chronic Assessment and plan: -Hx of pAfib anticoagulated with warfarin, rate controlled with metoprolol and diltiazem, and rhythm controlled with propafenone at home -D/c last night after admission for Afib RVR where new antiarrhythmic propafen one was started and was NSR at time of dc -Symptomatic Afib this morning which is currently rate controlled without further intervention at hospital -TTE 01/07/18: EF 55-60%, mod enlarged LA, no wall motion or significant valvular abnormalities -[facility] 01/12/18: 30-40% stenosis mid LAD, 20% OM1, 30% RPDA, no previous PCI -HR 88, BP 119/79 -K 3.9, Mg 1.9 on arrival which were repleated in ED for goal K >4, and Mg >2 -INR 2.5 on home warfarin dosing -Cardiology consulted with plans of cardioversion in the morning -Will monitor on tele for conversion to RVR, BP currently stable and will monitor and keep him NPO at midnight for cardioversion in morning, and continue warfarin to keep him anticoagulated prior to cardioversion (2) Diabetes mellitus Current Visit: No Status: Chronic Assessment and plan: -Hx of DM on both PO and insulin at home -Glucose 240 on arrival -Will start ssi and accucheks q6h as NPO for cardioversion Qualifiers: Diabetes mellitus type: type 2 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 transplanted heart: [place] heart Associated angina: without angina Qualified Code(s): I25.10 - Atherosclerotic heart disease of [place] coronary artery without angina pectoris (4) Heart failure with preserved ejection fraction Current Visit: Yes Status: Chronic Assessment and plan: -Hx of HFpEF without evidence of acute exacerbation -TTE 2/9/18: EF 55-60%, mod enlarged LA, mild LV diastolic dysfunction, no significant valvular abnormalities -Trace-1+ LE edema -Will continue home meds Qualifiers: Heart failure chronicity: chronic Qualified Code(s): I50.32 - Chronic diastolic (congestive) heart failure (5) HTN (hypertension) Current Visit: No Status: Chronic Assessment and plan: -Hx of HTN -BP 159/89 on arrival -BP 119/79 most recent -Will monitor BP in current setting of Afib if HR increases Qualifiers: Hypertension type: essential hypertension Qualified Code(s): I10 - Essential (primary) hypertension (6) DVT prophylaxis Current Visit: No Status: Acute Assessment and plan: -INR 2.5 on arrival with home warfarin -Will keep INR therapeutic with warfarin prior to cardioversion - Time Spent With Patient Total time spent is greater than 50% in coordination of care (as documented) at patient's floor/unit and/or counseling patient: <Corby Henriquez - Last Filed: 01/05/19 07:05> Date of Encounter: 01/04/19 Internal Medicine - H&P: HPI History of present illness: Mr. Padilla is a 63 year old male All Systems PM: A 10-system review of systems was performed and is negative for pertinent findings except as documented above in the HPI. - Constitutional Vitals: Temp Pulse Resp BP Pulse Ox 98.1 F 85 15 130/90 97 01/05/19 06:00 01/05/19 06:00 01/05/19 06:00 01/05/19 06:00 01/05/19 06:00 Internal Med - H&P Results - Labs CBC & Chem 7: 01/05/19 04:05 01/05/19 04:05 Labs: Short CBC 01/04/19 01/05/19 Range/Units 19:11 04:05 WBC 9.2 8.3 (4.3-11.1) K/mcL Hgb 12.9 12.5 L (12.9-16.9) g/dL Hct 41.1 40.8 (37.5-50.1) % Plt Count 215 184 (140-400) K/mcL Neutrophils # 5.9 4.8 (1.6-8.9) K/mcL BMP 01/04/19 01/05/19 19:11 04:05 Sodium 137 140 Potassium 3.9 4.5 Chloride 103 106 Carbon Dioxide 23 26 BUN 16 14 Creatinine 1.10 1.11 Glucose 240 H 194 H Calcium 9.5 8.8 Cardiac Enzymes 01/04/19 Range/Units 19:11 Troponin I < 0.03 (< 0.04) ng/mL - Time Spent With Patient Total time spent is greater than 50% in coordination of care (as documented) at patient's floor/unit and/or counseling patient: - Attending Attestation I saw and evaluated the patient. I reviewed the residents note, performed my own physical examination and agree with findings and plan as documented in the residents note. Patient seen and examined on 01/05/19. Patient resting comfortable in the hospital bed. Rate now in the 80's. Plan for cardiology consult in the morning, possible cardioversion. Will continue to monitor closely. Continue warfarin.
[2019-01-04] MEDS ORDERED: *HR* Warfarin 7.5 MG TABLET PO ONE (23:30)
[2019-01-05] MEDS: Insulin LISPRO 300 UNITS/3 ML VIAL SQ SCH ×4 (00:15→18:35)
[2019-01-05 04:32] LABS: Basophils % 0.5 %; Eosinophils # 0.1 K/mcL (0.0-0.6); Eosinophils % 1.6 %; Hematocrit 40.8 % (37.5-50.1); Hemoglobin 12.5 g/dL (12.9-16.9); Immature Granulocytes % 0.4 % (0-4); Lymphocytes # 2.6 K/mcL (0.6-4.6); Mean Corpuscular HGB Conc 30.6 g/dL (31.6-35.5); Mean Corpuscular Hemoglobin 22.8 pg (28.0-33.3); Mean Corpuscular Volume 74.3 fL (83.0-100.0); Mean Platelet Volume 8.9 fL (9.4-12.4); Monocytes # 0.7 K/mcL (0.0-1.3); Monocytes % 7.9 %; Neutrophils # 4.8 K/mcL (1.6-8.9); Platelet Count 184 K/mcL (140-400); Red Blood Count 5.49 M/mcL (4.19-5.50); Red Cell Distribution Width 18.2 % (11.5-14.5); Segmented Neutrophils % 57.6 %
[2019-01-05 04:41] LABS: INR 2.9
[2019-01-05 04:46] LABS: BUN/Creatinine Ratio 13 (6-26); Blood Urea Nitrogen 14 mg/dL (8-23); Calcium 8.8 mg/dL (8.6-10.3); Carbon Dioxide 26 mEq/L (23-29); Chloride 106 mEq/L (98-107); Glucose 194 mg/dL (70-105); Magnesium 2.1 mg/dL (1.6-2.6); Osmolality,Calculated 296 (280-300); Potassium 4.5 mEq/L (3.5-5.1); Sodium 140 mEq/L (136-145); eGFR For Non-African Americans > 60 (> 60)
[2019-01-05 04:47] LABS: % Iron Saturation 6 % (20-55); Iron 28 mcg/dL (65-175); Transferrin 325 mg/dL (203-362)
[2019-01-05] MEDS: Diltiazem CD (24hr) 180 MG CAPSULE PO SCH (07:59)
--- NOTE | 2019-01-05 11:26 | Cardiology History & Physical ---
<Hi Levine - Last Filed: 01/05/19 11:32> Date of Encounter: 01/05/19 Time of Encounter: 11:20 Assessment and Plan (1) Atrial fibrillation Current Visit: Yes Status: Acute Patient has symptomatic PAF. Patient seen to have rate controlled afib currently. Prior cardiac testing: -TTE 12/2017 with LVEF 55-60%, moderately enlarged left atrial size, no wall motion abnormalities. -LHC 12/2017 with 30-40% mid LAD, 20% OM1, 30% RPDA. Recently started on rhythmol and now failed. Discussed with Dr. Bravo, we will discontinue rythmol and increase metoprolol back to it's original dose of 100 mg BID. Continue cardizem. We discussed using amiodarone verses rate control. At this time he declines amiodarone therapy due to potential side effects. He would like to proceed with rate control and discuss other options for rhythm control in the future. Continue coumadin therapy for AC. Qualifiers: Atrial fibrillation type: paroxysmal Qualified Code(s): I48.0 - Paroxysmal atrial fibrillation History of Present Illness Chief complaint: palpitations HPI: Mr. Padilla is a 63 year old male with past medical history of PAF , PHU, and obesity who presents with c/o palpitations. He was just discharged 01/03/19 after being seen for afib. He was started on rhythmol during his stay and required increase in dose due to recurrent afib. He states that he converted back to NSR prior to discharge and did not require DCCV. His states he was in NSR for two days before symptoms restarted. He feels very symptomatic with his atrial fibrillation. C/o palpitations and SOB. He was previously started on sotalol and this was discontinued after he developed vision changes. On my exam he denies chest pain or SOB. Denies N/V or diaphoresis. Denies orthopnea, PND, or edema. Past Med Surg Social Fam HX - Past Medical History Medical history: atrial fibrillation, coronary artery disease, diabetes, hypertension, other Additional medical history: degenerative disc disease Psychiatric history: no psych history - Past Surgical History Surgical History: vasectomy - Social History Smoking Status: Former smoker Smokeless Tobacco Status: No Alcohol use: none Drug use: none - Family History Father Living Status: Age at : 69 Cause of : cancer Hx Family Cardiac Disorders: No Hx Family Cancer: Yes (Lung CA) Mother Family Member Ethnicity: Non- Living Status: Age at : 83 Cause of : chf Hx Family Cardiac Disorders: No Medications and Allergies RX: Aspirin Enteric Coated [Aspirin EC] 81 mg PO DAILY 01/06/18 [History] RX: Furosemide [Lasix] 20 mg PO DAILY PRN 01/06/18 [History] RX: Garlic 500 mg PO DAILY 01/06/18 [History] RX: Glimepiride [Amaryl] 2 mg PO BID 01/06/18 [History] RX: Insulin Glargine,Hum.rec.anlog [Lantus Solostar] 30 unit SQ QPM 01/06/18 [History] RX: Lisinopril [Zestril] 10 mg PO DAILY 01/06/18 [History] RX: [place]-3/Dha/Epa/Fish Oil [Fish Oil 1,000 mg Softgel] 1,000 mg PO DAILY 01/06/18 [History] RX: Warfarin [Coumadin] 7.5 mg PO MOTUTHSA 01/06/18 [History] RX: Rosuvastatin Calcium [Crestor] 10 mg PO QPM 10/04/18 [History] RX: Diltiazem HCl [Cardizem LA] 360 mg PO QAM 12/29/18 [History] RX: Magnesium Oxide [Magnesium] 400 mg PO DAILY 12/29/18 [History] RX: Metoprolol [Lopressor] 50 mg PO BID #60 tablet 01/03/19 [Rx] RX: Propafenone HCl 300 mg PO Q8H #90 tablet 01/03/19 [Rx] RX: Metformin HCl 1,000 mg PO BID 01/04/19 [History] Warfarin [Coumadin] 10 mg PO SUWEFR 01/04/19 [History] Allergy/AdvReac Type Severity Reaction Status Date / Time Sulfa (Sulfonamide Allergy Unknown See Verified 01/04/19 18:37 Antibiotics) Comments codeine AdvReac Hallucinati Verified 01/04/19 18:37 ng All Systems Review: The remainder of the systems were reviewed and are negative Physical Examination Vital Signs Temp Pulse Resp BP Pulse Ox 01/05/19 06:00 98.1 F 85 15 130/90 97 01/05/19 04:00 98.1 F 69 14 129/85 96 01/04/19 23:00 96 01/04/19 22:52 98.1 F 90 14 135/78 98 01/04/19 22:40 19 121/70 01/04/19 22:39 94 19 121/70 96 01/04/19 20:45 79 16 130/88 96 01/04/19 19:40 88 18 119/79 92 01/04/19 18:58 97.8 F 86 18 159/89 95 01/04/19 18:39 97.8 F 86 18 159/89 95 Intake and Output 01/04/19 01/05/19 01/05/19 23:59 07:59 15:59 Intake Total 342 / 342 0 / 0 Output Total 0 / 0 Balance 342 / 342 0 / 0 Intake: IV Fluids 102 / 102 Magnesium Sulfate 1 GM In 0.9 % 102 / 102 Sodium Chloride 100 ML @ 100 mls/hr IVPB ONCE ONE Rx#: [id number] Oral 240 / 240 0 / 0 Output: Urine 0 / 0 Other: Weight 145.45 kg 145.5 kg Blood Glucose* 225 208 189 Patient Weight 01/05/19 23:59 Weight 145.5 kg General: Conversant, No Apparent Distress, Other (Obese male) HEENT: Atraumatic, Normocephaly, Mucus Membranes Moist Neck: No JVD, Normal carotid pulses Cardiac: Other (Irregular) Lungs: Normal Breath Sounds, No Wheeze, Rales, Rhonchi Neuro: Alert and responsive, No focal deficits noted Abdomen: Soft, Non-Tender Skin: No rashes noted on visualized skin Musculoskeletal: No Chest Wall Tenderness Extremities: No Clubbing, No Cyanosis, No Edema, Normal Pulses Results 01/05/19 04:05 01/05/19 04:05 Lab Results 01/04/19 01/04/19 01/04/19 19:11 19:11 19:11 WBC 9.2 Hgb 12.9 Hct 41.1 Plt Count 215 INR APTT Sodium 137 Potassium 3.9 Chloride 103 Carbon Dioxide 23 BUN 16 Creatinine 1.10 Glucose 240 H Calcium 9.5 Magnesium 1.9 Troponin I < 0.03 B-Natriuretic Peptide 367 H 01/04/19 01/05/19 01/05/19 19:11 04:05 04:05 WBC 8.3 Hgb 12.5 L Hct 40.8 Plt Count 184 INR 2.5 2.9 APTT 40.0 H Sodium Potassium Chloride Carbon Dioxide BUN Creatinine Glucose Calcium Magnesium Troponin I B-Natriuretic Peptide 01/05/19 04:05 WBC Hgb Hct Plt Count INR APTT Sodium 140 Potassium 4.5 Chloride 106 Carbon Dioxide 26 BUN 14 Creatinine 1.11 Glucose 194 H Calcium 8.8 Magnesium 2.1 Troponin I B-Natriuretic Peptide - Imaging and Cardiology Echo: report reviewed Cardiac cath: report reviewed - EKG Interpretation EKG results cardiology: personally reviewed <Garry Bravo - Last Filed: 01/05/19 11:50> Date of Encounter: 01/05/19 - Attending Attestation I have personally performed a face to face evaluation on this patient. I have reviewed and agree with the care plan. History and Exam by me shows: Recurrent PAF despite rythmol, would recomemend alternate antiarrythmic vs. rate control and anticoagulation. History of Present Illness HPI: Mr. Padilla is a 63 year old male All Systems Review: The remainder of the systems were reviewed and are negative Physical Examination Vital Signs, Last 4 Hours Temp Pulse Resp BP 01/05/19 11:43 97.9 F 86 16 127/92 Results 01/05/19 04:05 01/05/19 04:05 Lab Results 01/04/19 01/04/19 01/04/19 19:11 19:11 19:11 WBC 9.2 Hgb 12.9 Hct 41.1 Plt Count 215 INR APTT Sodium 137 Potassium 3.9 Chloride 103 Carbon Dioxide 23 BUN 16 Creatinine 1.10 Glucose 240 H Calcium 9.5 Magnesium 1.9 Troponin I < 0.03 B-Natriuretic Peptide 367 H 01/04/19 01/05/19 01/05/19 19:11 04:05 04:05 WBC 8.3 Hgb 12.5 L Hct 40.8 Plt Count 184 INR 2.5 2.9 APTT 40.0 H Sodium Potassium Chloride Carbon Dioxide BUN Creatinine Glucose Calcium Magnesium Troponin I B-Natriuretic Peptide 01/05/19 04:05 WBC Hgb Hct Plt Count INR APTT Sodium 140 Potassium 4.5 Chloride 106 Carbon Dioxide 26 BUN 14 Creatinine 1.11 Glucose 194 H Calcium 8.8 Magnesium 2.1 Troponin I B-Natriuretic Peptide
[2019-01-05] MEDS ORDERED: *HR* Warfarin 5 MG TABLET PO ONE (18:00)
--- NOTE | 2019-01-05 20:47 | Electrocardiograph Report ---
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
--- NOTE | 2019-01-05 20:49 | Electrocardiograph Report ---
[address] [place] [address] Test Date: 2019-01-04 Pat Name: Solo Padilla Department: [id number] Room: [facility] Gender: M Pharmacists: : 1955 Requested By: Jack Lopez Order Number: [id number] Reading MD: Reshma Prasad Measurements Intervals [place] Rate: 82 P: DC: QRS: 14 QRSD: 106 T: 69 QT: 393 QTc: 459 Interpretive Statements Atrial fibrillation Electronically Signed On 01-05-2019 20:47:54 EST by Reshma Prasad
[2019-01-05] MEDS ORDERED: Insulin LISPRO 300 UNITS/3 ML VIAL SQ SCH (21:45)
[2019-01-06 05:57] LABS: INR 4.1
[2019-01-06 06:03] LABS: Prothrombin Time 46.4 Seconds (9.4-12.1)
[2019-01-06] MEDS ORDERED: Insulin LISPRO 300 UNITS/3 ML VIAL SQ SCH (07:30)
[2019-01-06] MEDS: Diltiazem CD (24hr) 180 MG CAPSULE PO SCH (08:16)
[2019-01-06 08:24] VITALS: BP 133/82
--- NOTE | 2019-01-06 10:37 | Discharge Summary ---
- NOTES TO OUTPATIENT PROVIDER Notes to Outpatient Provider: Recurrent admissions for A. fib, now rate controlled. Seen by cardiology who want rate control strategy. Orders not resulted at time of discharge: Pending orders 01/07/19 04:00 INR/PT [Prothrombin Time INR] [COAG] AM 0400 01/08/19 04:00 INR/PT [Prothrombin Time INR] [COAG] AM 0400 01/09/19 04:00 INR/PT [Prothrombin Time INR] [COAG] AM 0400 Date of Encounter: 01/06/19 Time of Encounter: 10:32 - Discharge Diagnosis (1) PAF (paroxysmal atrial fibrillation) Priority: Primary Status: Chronic (2) HTN (hypertension) Priority: Secondary Status: Chronic Qualifiers: Hypertension type: essential hypertension Qualified Code(s): I10 - Essential (primary) hypertension (3) Diabetes mellitus Priority: Secondary Status: Chronic Qualifiers: Diabetes mellitus type: type 2 Diabetes mellitus residential insulin use: with emt intermediate use Diabetes mellitus complication status: with unspecified complications Qualified Code(s): E11.8 - Type 2 diabetes mellitus with unspecified complications; 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 transplanted heart: [place] heart Associated angina: without angina Qualified Code(s): I25.10 - Atherosclerotic heart disease of [place] coronary artery without angina pectoris (5) Heart failure with preserved ejection fraction Priority: Secondary Status: Chronic Qualifiers: Heart failure chronicity: chronic Qualified Code(s): I50.32 - Chronic diastolic (congestive) heart failure Hospital course: Mr. Padilla is a 63 year old male with history of paroxysmal A. fib who presented with palpitations. He been recently discharged and was started on Rythmol Patient had previously her to normal sinus rhythm however he was noted to be in A. fib on presentation. Cardiology saw the patient and transitioned him from Rythmol to metoprolol. His rate is currently controlled and he is a symptomatically. Patient will be discharged home in stable condition. Discharge discussed with: patient - Time Spent with Patient Total time spent providing and/or coordinating discharge services: - Discharge Medications Home Medications: Aspirin Enteric Coated [Aspirin EC] 81 mg PO DAILY 01/06/18 [History] Furosemide [Lasix] 20 mg PO DAILY PRN 01/06/18 [History] Garlic 500 mg PO DAILY 01/06/18 [History] Glimepiride [Amaryl] 2 mg PO BID 01/06/18 [History] Insulin Glargine,Hum.rec.anlog [Lantus Solostar] 30 unit SQ QPM 01/06/18 [History] Lisinopril [Zestril] 10 mg PO DAILY 01/06/18 [History] [place]-3/Dha/Epa/Fish Oil [Fish Oil 1,000 mg Softgel] 1,000 mg PO DAILY 01/06/18 [History] Warfarin [Coumadin] 7.5 mg PO MOTUTHSA 01/06/18 [History] Rosuvastatin Calcium [Crestor] 10 mg PO QPM 10/04/18 [History] Diltiazem HCl [Cardizem LA] 360 mg PO QAM 12/29/18 [History] Magnesium Oxide [Magnesium] 400 mg PO DAILY 12/29/18 [History] Propafenone HCl 300 mg PO Q8H #90 tablet 01/03/19 [Rx] Metformin HCl 1,000 mg PO BID 01/04/19 [History] Warfarin [Coumadin] 10 mg PO SUWEFR 01/04/19 [History] Metoprolol [Lopressor] 100 mg PO BID tablet 01/06/19 [Rx] Allergies/Adverse Reactions: Allergy/AdvReac Type Severity Reaction Status Date / Time Sulfa (Sulfonamide Allergy Unknown See Verified 01/04/19 18:37 Antibiotics) Comments codeine AdvReac Hallucinati Verified 01/04/19 18:37 ng Date of admission: 01/04/19 21:33 Primary care physician: Saritha Stephen MD Consults: 01/04/19 19:18 Consult to Cardiology [CONS] Stat Comment: Consulting Provider: Cardiology [place] Reason for Consult: Afib Call Completed: Yes Discharging clinician: Arnoldo Mendoza Anticipated date of discharge: 01/06/19 - Constitutional Vitals: Temp Pulse Resp BP Pulse Ox 98.3 F 55 18 133/82 96 01/06/19 08:23 01/06/19 08:23 01/06/19 08:23 01/06/19 08:23 01/06/19 08:23 General appearance: Present: cooperative, A&O X 3, pleasant, no acute distress, answers questions appropriately Exam: . - Respiratory Respiratory exam: Present: CTAB. Absent: rales, rhonchi, wheezes - Cardiovascular Cardiovascular exam: Present: bradycardia, irregular rhythm. Absent: gallop, rubs, systolic murmur - Extremities Exam Extremities exam: Present: pedal edema (trace) - Patient Status Disposition: Home, Self-Care Condition: Fair Functional capacity at discharge: independent ambulation Overall status at discharge: patient is progressing back to baseline - Discharge Instructions Instructions: Heart Failure (DC), Atrial Flutter (DC), Atrial Fibrillation (DC), Chest Pain (DC), Sleep Apnea Syndrome (DC), Diabetes Mellitus Type 2 in Adults (DC), Chronic Hypertension (DC) Follow Up With: Saritha Stephen MD [Primary Care Provider] - (1 week) Additional Instructions: Please resume her home medications. Please follow-up with your primary care physician within one week. Please return for any worsening symptoms. - Diet and Activity Activity: increase activity as tolerated Diet: diabetic diet, low salt diet
== END 2019-01-06 11:32 | disposition home or self-care (01) ==
LOC: 2NENU 18:37 → EMEROOARM 18:37 → SUATTDRO 21:33 → 2NENU 22:42
PROVIDERS: ADMIT Pediatrics; ATTEND Internal Medicine

== ENCOUNTER 2020-01-13 06:30 | Observation (INO) ==
[2020-01-13] MEDS ORDERED: DilTIAZem 50 MG in 0.9 % Sodium Chloride 40 ML IVC SCH ×2 (07:15→13:30)
[2020-01-13 07:26] LABS: Basophils # 0.1 K/mcL (0.0-0.2); Basophils % 0.7 %; Eosinophils # 0.2 K/mcL (0.0-0.6); Eosinophils % 2.6 %; Hematocrit 47.6 % (37.5-50.1); Hemoglobin 14.8 g/dL (12.9-16.9); Immature Granulocytes % 0.4 % (0-4); Lymphocytes # 3.1 K/mcL (0.6-4.6); Lymphocytes % 36.7 %; Mean Corpuscular HGB Conc 31.1 g/dL (31.6-35.5); Mean Corpuscular Hemoglobin 23.5 pg (28.0-33.3); Mean Corpuscular Volume 75.6 fL (83.0-100.0); Mean Platelet Volume 8.7 fL (9.4-12.4); Monocytes # 0.6 K/mcL (0.0-1.3); Monocytes % 6.4 %; Neutrophils # 4.6 K/mcL (1.6-8.9); Platelet Count 233 K/mcL (140-400); Red Cell Distribution Width 17.6 % (11.5-14.5); Segmented Neutrophils % 53.2 %; White Blood Count 8.5 K/mcL (4.3-11.1)
[2020-01-13 07:37] LABS: INR 2.2
[2020-01-13 07:39] LABS: Activated Partial Thrombo Time 38.2 Seconds (26.0-36.0)
[2020-01-13 07:50] LABS: BUN/Creatinine Ratio 16 (6-26); Blood Urea Nitrogen 17 mg/dL (8-23); Calcium 9.2 mg/dL (8.6-10.3); Carbon Dioxide 27 mEq/L (23-29); Chloride 98 mEq/L (98-107); Glucose 213 mg/dL (70-105); Osmolality,Calculated 292 (280-300); Potassium 4.3 mEq/L (3.5-5.1); Sodium 137 mEq/L (136-145); Troponin I < 0.03 ng/mL (< 0.04); eGFR For African Americans > 60 (> 60); eGFR For Non-African Americans > 60 (> 60)
[2020-01-13] MEDS ORDERED: Naloxone 0.4 MG/ML INJ IVP PRN (13:15)
[2020-01-13] MEDS ORDERED: Ondansetron 4 MG/2 ML VIAL IVP PRN (13:15)
[2020-01-13] MEDS ORDERED: Acetaminophen 325 MG TABLET PO PRN (13:15)
[2020-01-13] MEDS ORDERED: Dextrose Gel 15 GM/37.5 ML TUBE PO PRN ×2 (13:54)
[2020-01-13] MEDS ORDERED: *HR* Dextrose 50 % in Water (Syg) 50 ML SYRINGE IVP PRN (13:54)
[2020-01-13] MEDS ORDERED: D5% in Water 1,000 ML IVC PRN (13:54)
[2020-01-13] MEDS ORDERED: Furosemide 20 MG TABLET PO PRN (14:00)
[2020-01-13] MEDS: Insulin LISPRO 300 UNITS/3 ML VIAL SQ SCH (16:42)
[2020-01-13] MEDS ORDERED: *HR* Warfarin 7.5 MG TABLET PO ONE (18:00)
[2020-01-13] MEDS ORDERED: Warfarin perPT PO PRN (18:00)
[2020-01-14 02:47] LABS: Basophils # 0.1 K/mcL (0.0-0.2); Basophils % 0.8 %; Eosinophils # 0.2 K/mcL (0.0-0.6); Eosinophils % 1.9 %; Hematocrit 44.8 % (37.5-50.1); Hemoglobin 14.1 g/dL (12.9-16.9); Immature Granulocytes % 0.4 % (0-4); Lymphocytes # 2.5 K/mcL (0.6-4.6); Lymphocytes % 30.7 %; Mean Corpuscular HGB Conc 31.5 g/dL (31.6-35.5); Mean Corpuscular Hemoglobin 23.7 pg (28.0-33.3); Mean Corpuscular Volume 75.3 fL (83.0-100.0); Mean Platelet Volume 8.4 fL (9.4-12.4); Monocytes # 0.6 K/mcL (0.0-1.3); Monocytes % 7.3 %; Neutrophils # 4.7 K/mcL (1.6-8.9); Platelet Count 180 K/mcL (140-400); Red Blood Count 5.95 M/mcL (4.19-5.50); Red Cell Distribution Width 17.2 % (11.5-14.5); Segmented Neutrophils % 58.9 %
[2020-01-14 02:54] LABS: INR 2.6; Prothrombin Time 29.6 Seconds (9.4-12.1)
[2020-01-14 03:06] LABS: BUN/Creatinine Ratio 16 (6-26); Blood Urea Nitrogen 17 mg/dL (8-23); Carbon Dioxide 27 mEq/L (23-29); Chloride 100 mEq/L (98-107); Glucose 188 mg/dL (70-105); Osmolality,Calculated 285 (280-300); Potassium 4.2 mEq/L (3.5-5.1); Sodium 134 mEq/L (136-145); eGFR For African Americans > 60 (> 60); eGFR For Non-African Americans > 60 (> 60)
[2020-01-14 06:34] LABS: Estimated Average Glucose 223 mg/dl
[2020-01-14] MEDS ORDERED: Aspirin Enteric Coated 81 MG Tablet PO SCH (09:00)
[2020-01-14] MEDS ORDERED: Insulin DETEMIR 100 UNIT/ML X5UNITS SQ SCH (09:00)
[2020-01-14] MEDS ORDERED: Magnesium Oxide 400 MG TABLET PO SCH (09:00)
[2020-01-14] MEDS ORDERED: DilTIAZem CD (24hr) 180 MG CAP.ER.24H PO SCH (09:00)
[2020-01-14] MEDS: Insulin LISPRO 300 UNITS/3 ML VIAL SQ SCH ×2 (09:06→12:31)
[2020-01-14 12:27] VITALS: BP 138/80
[2020-01-14] MEDS ORDERED: *HR* Warfarin 7.5 MG TABLET PO ONE (18:00)
== END 2020-01-14 15:49 | disposition home or self-care (01) ==
LOC: EMEROOARM 06:30 → 2ANU 06:30 → SUATTDRO 12:31 → 2ANU 12:46
PROVIDERS: ADMIT Pharmacist; ATTEND Family Medicine

== ENCOUNTER 2021-12-09 11:46 | Observation (INO) ==
[2021-12-09] MEDS ORDERED: 0.9 % Sodium Chloride 500 ML IVC ONE (13:03)
[2021-12-09 13:38] LABS: Basophils % 0.2 %; Hematocrit 44.8 % (37.5-50.1); Immature Granulocytes % 0.5 % (0-4); Lymphocytes # 0.8 K/mcL (0.6-4.6); Lymphocytes % 19.6 %; Mean Corpuscular HGB Conc 31.3 g/dL (31.6-35.5); Mean Corpuscular Hemoglobin 25.6 pg (28.0-33.3); Mean Corpuscular Volume 81.9 fL (83.0-100.0); Mean Platelet Volume 9.1 fL (9.4-12.4); Monocytes # 0.3 K/mcL (0.0-1.3); Monocytes % 6.5 %; Platelet Count 154 K/mcL (140-400); Red Blood Count 5.47 M/mcL (4.19-5.50); Red Cell Distribution Width 15.5 % (11.5-14.5); Segmented Neutrophils % 73.2 %; White Blood Count 4.1 K/mcL (4.3-11.1)
[2021-12-09] MEDS ORDERED: Ondansetron 4 MG/2 ML VIAL IVP ONE (13:39)
[2021-12-09 14:03] LABS: Alanine Aminotransferase 19 Units/L (7-52); Albumin 3.6 g/dL (3.5-5.7); Albumin/Globulin Ratio 1.2 (1.1-2.2); Alkaline Phosphatase 44 Units/L (34-104); Aspartate Amino Transferase 28 Units/L (13-39); Bilirubin,Direct 0.3 mg/dL (0.0-0.2); Bilirubin,Indirect 0.3 mg/dL (0.0-1.0); Bilirubin,Total 0.6 mg/dL (0.3-1.0); Blood Urea Nitrogen 16 mg/dL (8-23); Calcium 8.5 mg/dL (8.6-10.3); Carbon Dioxide 26 mEq/L (23-29); Chloride 98 mEq/L (98-107); Globulin 3.1 g/dL (2.4-3.5); Glucose 172 mg/dL (70-105); Osmolality,Calculated 283 (280-300); Potassium 3.7 mEq/L (3.5-5.1); Sodium 134 mEq/L (136-145); Total Protein 6.7 g/dL (6.4-8.9); Troponin I < 0.03 ng/mL (< 0.04)
[2021-12-09 14:31] LABS: BUN/Creatinine Ratio 12 (6-26); eGFR For African Americans > 60 (> 60); eGFR For Non-African Americans 52 (> 60)
[2021-12-09 14:48] LABS: Bacteria,Urine Few per hpf (None-Few); Bilirubin,Urine Negative (Negative); Blood,Urine Trace (Negative); Clarity,Urine Clear (Clear); Color,Urine Yellow (Yellow); Glucose,Urine (UA) Normal (Normal); Ketones,Urine Negative (Negative); Leukocyte Esterase,Urine Negative (Negative); Mucus,Urine Few per lpf (None-Few); Nitrite,Urine Negative (Negative); Protein,Urine 70 mg/dL (Neg-Trace); RBC,Urine 0-3 per hpf (0-3); Specific Gravity,Urine 1.026 (1.010-1.025); Squamous Epithelial Cell,Urine Few per hpf (None-Few); Transitional Epi Cells,Urine Few per hpf (None-Few); Urobilinogen,Urine Normal (Normal); WBC,Urine 15-30 per hpf (0-3)
[2021-12-09] MEDS ORDERED: Isovue-370 500 ML BOTTLE IVP ONE (15:00)
[2021-12-09] MEDS ORDERED: Metoprolol 100 MG TABLET PO ONE (15:27)
[2021-12-09 16:31] LABS: INR 6.3; Prothrombin Time 69.3 Seconds (9.4-12.1)
[2021-12-09] MEDS: DilTIAZem CD (24hr) 180 MG CAP.ER.24H PO SCH (18:45)
[2021-12-09] MEDS: Ondansetron 4 MG/2 ML VIAL IVP PRN (18:45)
[2021-12-09] MEDS: Metoprolol 100 MG TABLET PO SCH (20:23)
[2021-12-10] MEDS: Ondansetron 4 MG/2 ML VIAL IVP PRN (00:06)
[2021-12-10] MEDS ORDERED: Acetaminophen IV 1,000 MG/100 ML BAG IVPB ONE (03:19)
[2021-12-10] MEDS: Pantoprazole 40 MG VIAL IVP SCH ×2 (05:17→18:10)
[2021-12-10 07:09] LABS: Basophils % 0.2 %; Hematocrit 42.6 % (37.5-50.1); Hemoglobin 13.5 g/dL (12.9-16.9); Immature Granulocytes % 0.4 % (0-4); Lymphocytes # 0.9 K/mcL (0.6-4.6); Lymphocytes % 19.1 %; Mean Corpuscular HGB Conc 31.7 g/dL (31.6-35.5); Mean Corpuscular Hemoglobin 25.6 pg (28.0-33.3); Mean Corpuscular Volume 80.7 fL (83.0-100.0); Monocytes # 0.4 K/mcL (0.0-1.3); Monocytes % 9.6 %; Neutrophils # 3.2 K/mcL (1.6-8.9); Platelet Count 171 K/mcL (140-400); Red Blood Count 5.28 M/mcL (4.19-5.50); Red Cell Distribution Width 15.7 % (11.5-14.5); Segmented Neutrophils % 70.7 %; White Blood Count 4.5 K/mcL (4.3-11.1)
[2021-12-10 07:29] LABS: BUN/Creatinine Ratio 13 (6-26); Blood Urea Nitrogen 15 mg/dL (8-23); Calcium 8.4 mg/dL (8.6-10.3); Carbon Dioxide 27 mEq/L (23-29); Chloride 99 mEq/L (98-107); Glucose 135 mg/dL (70-105); Osmolality,Calculated 281 (280-300); Sodium 134 mEq/L (136-145); eGFR For African Americans > 60 (> 60); eGFR For Non-African Americans > 60 (> 60)
[2021-12-10] MEDS: Aspirin Enteric Coated 81 MG Tablet PO SCH (08:42)
[2021-12-10] MEDS: Metoprolol 100 MG TABLET PO SCH ×2 (08:42→21:40)
[2021-12-10] MEDS: Magnesium Oxide 400 MG TABLET PO SCH (08:42)
[2021-12-10 13:03] LABS: INR 6.5; Prothrombin Time 71.6 Seconds (9.4-12.1)
[2021-12-10] MEDS: Acetaminophen 325 MG TABLET PO PRN (15:18)
[2021-12-10] MEDS: DilTIAZem CD (24hr) 180 MG CAP.ER.24H PO SCH (17:48)
[2021-12-10] MEDS: Insulin DETEMIR 100 UNIT/ML X5UNITS SUBQ SCH (17:48)
[2021-12-11] MEDS: Pantoprazole 40 MG VIAL IVP SCH ×2 (06:18→18:08)
[2021-12-11] MEDS: Metoprolol 100 MG TABLET PO SCH ×2 (07:17→20:05)
[2021-12-11 09:44] LABS: Basophils % 0.3 %; Eosinophils % 0.6 %; Hematocrit 41.3 % (37.5-50.1); Hemoglobin 13.4 g/dL (12.9-16.9); Immature Granulocytes % 1.1 % (0-4); Lymphocytes # 0.8 K/mcL (0.6-4.6); Lymphocytes % 20.8 %; Mean Corpuscular HGB Conc 32.4 g/dL (31.6-35.5); Mean Corpuscular Hemoglobin 26.3 pg (28.0-33.3); Mean Platelet Volume 9.1 fL (9.4-12.4); Monocytes # 0.3 K/mcL (0.0-1.3); Monocytes % 9.1 %; Neutrophils # 2.5 K/mcL (1.6-8.9); Platelet Count 201 K/mcL (140-400); Red Cell Distribution Width 15.3 % (11.5-14.5); Segmented Neutrophils % 68.1 %; White Blood Count 3.6 K/mcL (4.3-11.1)
[2021-12-11 09:54] LABS: BUN/Creatinine Ratio 14 (6-26); Blood Urea Nitrogen 15 mg/dL (8-23); Calcium 8.3 mg/dL (8.6-10.3); Carbon Dioxide 26 mEq/L (23-29); Chloride 98 mEq/L (98-107); Glucose 223 mg/dL (70-105); Osmolality,Calculated 280 (280-300); Potassium 3.9 mEq/L (3.5-5.1); Sodium 131 mEq/L (136-145); eGFR For African Americans > 60 (> 60); eGFR For Non-African Americans > 60 (> 60)
[2021-12-11 09:57] LABS: INR 5.1; Prothrombin Time 55.7 Seconds (9.4-12.1)
[2021-12-11] MEDS: Aspirin Enteric Coated 81 MG Tablet PO SCH (10:21)
[2021-12-11] MEDS: Magnesium Oxide 400 MG TABLET PO SCH (10:21)
[2021-12-11 11:20] LABS: C-Reactive Protein 164 mg/L (Less than 10)
[2021-12-11] MEDS ORDERED: Furosemide 20 MG TABLET PO PRN (11:44)
[2021-12-11] MEDS ORDERED: *HR* LORazepam 0.5 MG TABLET PO PRN (13:36)
[2021-12-11] MEDS: Zinc Sulfate 220 MG CAPSULE PO SCH (15:22)
[2021-12-11] MEDS: Cholecalciferol (D-3) 1,000 UNIT (25MCG) TABLET PO SCH (15:22)
[2021-12-11] MEDS: Ascorbic Acid 500 MG TABLET PO SCH (15:22)
[2021-12-11] MEDS: Acetaminophen 325 MG TABLET PO PRN (15:30)
[2021-12-11] MEDS: DilTIAZem CD (24hr) 180 MG CAP.ER.24H PO SCH (18:08)
[2021-12-11] MEDS: Insulin DETEMIR 100 UNIT/ML X5UNITS SUBQ SCH (18:09)
[2021-12-12] MEDS: Pantoprazole 40 MG VIAL IVP SCH (05:06)
[2021-12-12] MEDS ORDERED: Insulin LISPRO 300 UNITS/3 ML VIAL SUBQ ONE (08:31)
[2021-12-12] MEDS ORDERED: *HR* Glimepiride 4 MG TABLET PO SCH (09:00)
[2021-12-12] MEDS ORDERED: Insulin DETEMIR 100 UNIT/ML X5UNITS SUBQ SCH (09:00)
[2021-12-12] MEDS: Metoprolol 100 MG TABLET PO SCH (09:23)
[2021-12-12] MEDS: Zinc Sulfate 220 MG CAPSULE PO SCH (09:23)
[2021-12-12] MEDS: Ascorbic Acid 500 MG TABLET PO SCH (09:23)
[2021-12-12] MEDS: Aspirin Enteric Coated 81 MG Tablet PO SCH (09:23)
[2021-12-12] MEDS: Cholecalciferol (D-3) 1,000 UNIT (25MCG) TABLET PO SCH (09:23)
[2021-12-12] MEDS: Magnesium Oxide 400 MG TABLET PO SCH (09:23)
[2021-12-12 09:24] LABS: Basophils % 0.6 %; Hematocrit 43.5 % (37.5-50.1); Hemoglobin 14.2 g/dL (12.9-16.9); Immature Granulocytes % 0.9 % (0-4); Lymphocytes # 0.6 K/mcL (0.6-4.6); Lymphocytes % 15.9 %; Mean Corpuscular HGB Conc 32.6 g/dL (31.6-35.5); Mean Corpuscular Hemoglobin 26.4 pg (28.0-33.3); Mean Corpuscular Volume 80.9 fL (83.0-100.0); Mean Platelet Volume 9.3 fL (9.4-12.4); Monocytes # 0.4 K/mcL (0.0-1.3); Neutrophils # 2.5 K/mcL (1.6-8.9); Platelet Count 268 K/mcL (140-400); Red Blood Count 5.38 M/mcL (4.19-5.50); Segmented Neutrophils % 71.6 %; White Blood Count 3.5 K/mcL (4.3-11.1)
[2021-12-12 09:31] LABS: INR 3.9; Prothrombin Time 42.8 Seconds (9.4-12.1)
[2021-12-12 10:25] LABS: BUN/Creatinine Ratio 17 (6-26); Blood Urea Nitrogen 19 mg/dL (8-23); Calcium 8.3 mg/dL (8.6-10.3); Carbon Dioxide 23 mEq/L (23-29); Chloride 99 mEq/L (98-107); Glucose 397 mg/dL (70-105); Osmolality,Calculated 295 (280-300); Potassium 4.3 mEq/L (3.5-5.1); Sodium 133 mEq/L (136-145); eGFR For African Americans > 60 (> 60); eGFR For Non-African Americans > 60 (> 60)
[2021-12-12 11:00] VITALS: BP 137/74; PULSE 97; TEMP 97.5
[2021-12-12 12:28] VITALS: O2SAT 95
== END 2021-12-12 16:24 | disposition home or self-care (01) ==
LOC: EMEROOARM 11:46 → 3BNU 11:46 → SUATTDRO 16:53 → 3BNU 18:00
PROVIDERS: ADMIT Internal Medicine; ATTEND Internal Medicine

== ENCOUNTER 2022-02-28 08:55 | Observation (INO) ==
[2022-02-28 09:29] LABS: Basophils % 0.6 %; Eosinophils # 0.1 K/mcL (0.0-0.6); Eosinophils % 1.5 %; Hematocrit 46.7 % (37.5-50.1); Hemoglobin 15.4 g/dL (12.9-16.9); Immature Granulocytes % 0.3 % (0-4); Lymphocytes # 2.4 K/mcL (0.6-4.6); Lymphocytes % 35.2 %; Mean Corpuscular Hemoglobin 26.9 pg (28.0-33.3); Mean Corpuscular Volume 81.6 fL (83.0-100.0); Mean Platelet Volume 8.7 fL (9.4-12.4); Monocytes # 0.4 K/mcL (0.0-1.3); Monocytes % 6.3 %; Neutrophils # 3.9 K/mcL (1.6-8.9); Platelet Count 177 K/mcL (140-400); Red Blood Count 5.72 M/mcL (4.19-5.50); Red Cell Distribution Width 16.4 % (11.5-14.5); Segmented Neutrophils % 56.1 %; White Blood Count 6.9 K/mcL (4.3-11.1)
[2022-02-28 09:37] LABS: INR 2.8; Prothrombin Time 30.5 Seconds (9.4-12.1)
[2022-02-28] MEDS ORDERED: DilTIAZem 50 MG/50 ML IV.SOLN IVC SCH (09:45)
[2022-02-28 09:56] LABS: BUN/Creatinine Ratio 14 (6-26); Blood Urea Nitrogen 13 mg/dL (8-23); Carbon Dioxide 27 mEq/L (23-29); Chloride 100 mEq/L (98-107); Glucose 243 mg/dL (70-105); Osmolality,Calculated 288 (280-300); Potassium 4.1 mEq/L (3.5-5.1); Sodium 135 mEq/L (136-145); Troponin I < 0.03 ng/mL (< 0.04); eGFR For African Americans > 60 (> 60); eGFR For Non-African Americans > 60 (> 60)
[2022-02-28] MEDS ORDERED: Melatonin 3 MG TABLET PO PRN (10:06)
[2022-02-28] MEDS ORDERED: Naloxone 0.4 MG/ML INJ IVP PRN (10:06)
[2022-02-28] MEDS ORDERED: Perflutren Lipid Microsphere 1.3 ML in 0.9 % Sodium Chloride 8.7 ML IVP PRN (10:09)
[2022-02-28] MEDS ORDERED: *HR* Dextrose 50 % in Water (Syg) 50 ML SYRINGE IVP PRN (10:11)
[2022-02-28] MEDS ORDERED: D5% in Water 1,000 ML IVC PRN (10:11)
[2022-02-28] MEDS ORDERED: Dextrose 4 GM Chewable Tablets PO PRN ×2 (10:11)
[2022-02-28 10:22] LABS: Magnesium 1.8 mg/dL (1.6-2.6)
[2022-02-28] MEDS ORDERED: Isovue-370 500 ML BOTTLE IVP ONE (10:52)
[2022-02-28] MEDS: Insulin LISPRO 300 UNITS/3 ML VIAL SUBQ SCH ×2 (11:52→16:41)
[2022-02-28] MEDS ORDERED: *HR* Metoprolol 5 MG/5 ML VIAL IVP PRN (12:19)
[2022-02-28] MEDS ORDERED: *HR* Warfarin 7.5 MG TABLET PO ONE (18:00)
[2022-02-28] MEDS ORDERED: Warfarin perPT PO PRN (18:00)
[2022-02-28] MEDS ORDERED: Metoprolol 100 MG TABLET PO SCH (21:00)
[2022-02-28] MEDS ORDERED: Insulin LISPRO 300 UNITS/3 ML VIAL SUBQ SCH (21:00)
[2022-02-28] MEDS: Insulin DETEMIR 100 UNIT/ML X5UNITS SUBQ SCH (21:13)
[2022-03-01 01:15] LABS: Hematocrit 42.6 % (37.5-50.1); Mean Corpuscular HGB Conc 31.7 g/dL (31.6-35.5); Mean Corpuscular Hemoglobin 26.1 pg (28.0-33.3); Mean Corpuscular Volume 82.4 fL (83.0-100.0); Mean Platelet Volume 8.9 fL (9.4-12.4); Platelet Count 158 K/mcL (140-400); Red Blood Count 5.17 M/mcL (4.19-5.50); Red Cell Distribution Width 16.3 % (11.5-14.5); White Blood Count 7.4 K/mcL (4.3-11.1)
[2022-03-01 01:16] LABS: Hemoglobin 13.5 g/dL (12.9-16.9)
[2022-03-01 01:22] LABS: INR 2.6; Prothrombin Time 29.3 Seconds (9.4-12.1)
[2022-03-01 01:35] LABS: Alanine Aminotransferase 15 Units/L (7-52); Albumin 3.6 g/dL (3.5-5.7); Albumin/Globulin Ratio 1.2 (1.1-2.2); Alkaline Phosphatase 39 Units/L (34-104); Aspartate Amino Transferase 30 Units/L (13-39); BUN/Creatinine Ratio 15 (6-26); Bilirubin,Total 0.4 mg/dL (0.3-1.0); Blood Urea Nitrogen 16 mg/dL (8-23); Calcium 8.9 mg/dL (8.6-10.3); Carbon Dioxide 26 mEq/L (23-29); Chloride 103 mEq/L (98-107); Chol/HDL Ratio 4.4 (0-4.9); Cholesterol 102 mg/dL (< 200); Globulin 2.9 g/dL (2.4-3.5); Glucose 207 mg/dL (70-105); HDL Cholesterol 23 mg/dL (40-59); Magnesium 1.8 mg/dL (1.6-2.6); Osmolality,Calculated 289 (280-300); Phosphorous 4.2 mg/dL (2.7-4.5); Sodium 136 mEq/L (136-145); Total Protein 6.5 g/dL (6.4-8.9); Triglycerides 426 mg/dL (< 150); eGFR For African Americans > 60 (> 60); eGFR For Non-African Americans > 60 (> 60)
[2022-03-01 07:01] VITALS: O2SAT 96
[2022-03-01] MEDS ORDERED: *HR* Glimepiride 4 MG TABLET PO SCH (08:00)
[2022-03-01 08:28] LABS: Thyroid Stimulating Hormone 4.732 mcIU/mL (0.340-5.600)
[2022-03-01] MEDS ORDERED: DilTIAZem CD (24hr) 180 MG CAP.ER.24H PO SCH (09:00)
[2022-03-01] MEDS ORDERED: Aspirin Enteric Coated 81 MG Tablet PO SCH (09:00)
[2022-03-01] MEDS ORDERED: lisinopriL 10 MG TABLET PO SCH (09:00)
[2022-03-01] MEDS ORDERED: Metoprolol XL (24 HR) Succ 50 MG TAB.ER.24H PO SCH (09:00)
[2022-03-01] MEDS: Insulin LISPRO 300 UNITS/3 ML VIAL SUBQ SCH (09:51)
[2022-03-01] MEDS: Insulin DETEMIR 100 UNIT/ML X5UNITS SUBQ SCH (09:52)
[2022-03-01 11:08] VITALS: BP 160/70; PULSE 71; TEMP 98.2
[2022-03-01] MEDS ORDERED: *HR* Warfarin 7.5 MG TABLET PO ONE (18:00)
== END 2022-03-01 12:52 | disposition home or self-care (01) ==
LOC: EMEROOARM 08:55 → 2ANU 08:55
PROVIDERS: ADMIT Internal Medicine; ATTEND Internal Medicine

== ENCOUNTER 2022-03-02 18:01 | Inpatient (IN) ==
[2022-03-02 18:56] LABS: Basophils # 0.1 K/mcL (0.0-0.2); Basophils % 0.9 %; Eosinophils # 0.1 K/mcL (0.0-0.6); Eosinophils % 1.6 %; Hematocrit 44.1 % (37.5-50.1); Hemoglobin 14.2 g/dL (12.9-16.9); Immature Granulocytes % 0.3 % (0-4); Lymphocytes # 2.6 K/mcL (0.6-4.6); Lymphocytes % 37.8 %; Mean Corpuscular HGB Conc 32.2 g/dL (31.6-35.5); Mean Corpuscular Hemoglobin 26.5 pg (28.0-33.3); Mean Corpuscular Volume 82.3 fL (83.0-100.0); Mean Platelet Volume 8.8 fL (9.4-12.4); Monocytes # 0.4 K/mcL (0.0-1.3); Monocytes % 5.4 %; Neutrophils # 3.8 K/mcL (1.6-8.9); Platelet Count 180 K/mcL (140-400); Red Blood Count 5.36 M/mcL (4.19-5.50); Red Cell Distribution Width 16.1 % (11.5-14.5)
[2022-03-02] MEDS ORDERED: DilTIAZem 50 MG/50 ML IV.SOLN IVC SCH (19:00)
[2022-03-02 19:03] LABS: INR 2.3
[2022-03-02 19:06] LABS: Activated Partial Thrombo Time 42.1 Seconds (26.0-36.0)
[2022-03-02 19:39] LABS: BUN/Creatinine Ratio 10 (6-26); Blood Urea Nitrogen 13 mg/dL (8-23); Calcium 9.3 mg/dL (8.6-10.3); Carbon Dioxide 24 mEq/L (23-29); Chloride 101 mEq/L (98-107); Glucose 238 mg/dL (70-105); Osmolality,Calculated 290 (280-300); Potassium 3.9 mEq/L (3.5-5.1); Sodium 136 mEq/L (136-145); Thyroid Stimulating Hormone 7.046 mcIU/mL (0.340-5.600); Troponin I < 0.03 ng/mL (< 0.04); eGFR For African Americans > 60 (> 60); eGFR For Non-African Americans 57 (> 60)
[2022-03-02] MEDS ORDERED: Ondansetron ODT 4 MG TAB.RAPDIS SL PRN (20:24)
[2022-03-02] MEDS ORDERED: Naloxone 0.4 MG/ML INJ IVP PRN (20:24)
[2022-03-02] MEDS ORDERED: Acetaminophen 325 MG TABLET PO PRN (20:24)
[2022-03-02] MEDS ORDERED: D5% in Water 1,000 ML IVC PRN (21:25)
[2022-03-02] MEDS ORDERED: Dextrose 4 GM Chewable Tablets PO PRN ×2 (21:25)
[2022-03-02] MEDS ORDERED: *HR* Dextrose 50 % in Water (Syg) 50 ML SYRINGE IVP PRN (21:25)
[2022-03-02 22:14] LABS: INR 2.5; Prothrombin Time 27.6 Seconds (9.4-12.1)
[2022-03-02] MEDS: 0.9 % Sodium Chloride 1,000 ML IVC SCH (23:35)
[2022-03-02] MEDS: Insulin LISPRO 300 UNITS/3 ML VIAL SUBQ SCH (23:38)
[2022-03-03 01:09] LABS: Hematocrit 42.9 % (37.5-50.1); Hemoglobin 13.5 g/dL (12.9-16.9); Mean Corpuscular HGB Conc 31.5 g/dL (31.6-35.5); Mean Corpuscular Volume 82.7 fL (83.0-100.0); Mean Platelet Volume 8.8 fL (9.4-12.4); Platelet Count 161 K/mcL (140-400); Red Blood Count 5.19 M/mcL (4.19-5.50); Red Cell Distribution Width 16.2 % (11.5-14.5); White Blood Count 7.5 K/mcL (4.3-11.1)
[2022-03-03 01:20] LABS: INR 2.6; Prothrombin Time 29.3 Seconds (9.4-12.1)
[2022-03-03 01:26] LABS: BUN/Creatinine Ratio 12 (6-26); Blood Urea Nitrogen 13 mg/dL (8-23); Calcium 8.9 mg/dL (8.6-10.3); Carbon Dioxide 26 mEq/L (23-29); Chloride 104 mEq/L (98-107); Chol/HDL Ratio 4.2 (0-4.9); Cholesterol 96 mg/dL (< 200); Glucose 237 mg/dL (70-105); HDL Cholesterol 23 mg/dL (40-59); LDL Cholesterol,Calculated 5 mg/dL (< 100); Magnesium 1.9 mg/dL (1.6-2.6); Osmolality,Calculated 290 (280-300); Phosphorous 3.8 mg/dL (2.7-4.5); Potassium 4.3 mEq/L (3.5-5.1); Sodium 136 mEq/L (136-145); Triglycerides 339 mg/dL (< 150); eGFR For African Americans > 60 (> 60); eGFR For Non-African Americans > 60 (> 60)
[2022-03-03] MEDS: DilTIAZem 50 MG/50 ML IV.SOLN IVC SCH ×3 (03:42→21:43)
[2022-03-03] MEDS: Magnesium Oxide 400 MG TABLET PO SCH (08:44)
[2022-03-03] MEDS: Metoprolol XL (24 HR) Succ 50 MG TAB.ER.24H PO SCH ×2 (08:44→21:41)
[2022-03-03] MEDS: Aspirin Enteric Coated 81 MG Tablet PO SCH (08:44)
[2022-03-03] MEDS: Insulin LISPRO 300 UNITS/3 ML VIAL SUBQ SCH ×4 (08:45→21:38)
[2022-03-03] MEDS ORDERED: Warfarin perPT PO PRN (18:00)
[2022-03-03] MEDS ORDERED: *HR* Warfarin 7.5 MG TABLET PO ONE (18:00)
[2022-03-03] MEDS ORDERED: Insulin DETEMIR 100 UNIT/ML X5UNITS SUBQ SCH (18:00)
[2022-03-03] MEDS: 0.9 % Sodium Chloride 1,000 ML IVC SCH (18:29)
[2022-03-03] MEDS: Insulin DETEMIR 100 UNIT/ML X5UNITS SUBQ SCH (21:42)
[2022-03-04 06:15] LABS: Hematocrit 42.7 % (37.5-50.1); Hemoglobin 13.9 g/dL (12.9-16.9); Mean Corpuscular HGB Conc 32.6 g/dL (31.6-35.5); Mean Corpuscular Hemoglobin 26.6 pg (28.0-33.3); Mean Corpuscular Volume 81.6 fL (83.0-100.0); Mean Platelet Volume 8.8 fL (9.4-12.4); Platelet Count 160 K/mcL (140-400); Red Blood Count 5.23 M/mcL (4.19-5.50); Red Cell Distribution Width 16.4 % (11.5-14.5); White Blood Count 6.5 K/mcL (4.3-11.1)
[2022-03-04 06:25] LABS: INR 2.4; Prothrombin Time 26.4 Seconds (9.4-12.1)
[2022-03-04 06:36] LABS: BUN/Creatinine Ratio 15 (6-26); Blood Urea Nitrogen 14 mg/dL (8-23); Calcium 9.2 mg/dL (8.6-10.3); Carbon Dioxide 25 mEq/L (23-29); Chloride 103 mEq/L (98-107); Glucose 179 mg/dL (70-105); Magnesium 1.9 mg/dL (1.6-2.6); Osmolality,Calculated 287 (280-300); Potassium 3.9 mEq/L (3.5-5.1); Sodium 136 mEq/L (136-145); eGFR For African Americans > 60 (> 60); eGFR For Non-African Americans > 60 (> 60)
[2022-03-04] MEDS: Magnesium Oxide 400 MG TABLET PO SCH (09:14)
[2022-03-04] MEDS: Aspirin Enteric Coated 81 MG Tablet PO SCH (09:14)
[2022-03-04] MEDS: Insulin LISPRO 300 UNITS/3 ML VIAL SUBQ SCH ×4 (09:14→20:27)
[2022-03-04] MEDS: Metoprolol XL (24 HR) Succ 50 MG TAB.ER.24H PO SCH ×2 (09:14→20:20)
[2022-03-04] MEDS ORDERED: *HR* Warfarin 7.5 MG TABLET PO ONE (18:00)
[2022-03-04] MEDS: Insulin DETEMIR 100 UNIT/ML X5UNITS SUBQ SCH (20:33)
[2022-03-05 02:13] LABS: Hematocrit 41.3 % (37.5-50.1); Hemoglobin 13.2 g/dL (12.9-16.9); Mean Corpuscular Hemoglobin 25.9 pg (28.0-33.3); Mean Corpuscular Volume 81.1 fL (83.0-100.0); Mean Platelet Volume 8.7 fL (9.4-12.4); Platelet Count 151 K/mcL (140-400); Red Blood Count 5.09 M/mcL (4.19-5.50); Red Cell Distribution Width 16.1 % (11.5-14.5); White Blood Count 6.4 K/mcL (4.3-11.1)
[2022-03-05 02:22] LABS: INR 2.3; Prothrombin Time 25.1 Seconds (9.4-12.1)
[2022-03-05 03:15] LABS: BUN/Creatinine Ratio 16 (6-26); Blood Urea Nitrogen 15 mg/dL (8-23); Carbon Dioxide 25 mEq/L (23-29); Chloride 103 mEq/L (98-107); Glucose 211 mg/dL (70-105); Osmolality,Calculated 285 (280-300); Potassium 4.2 mEq/L (3.5-5.1); Sodium 134 mEq/L (136-145); eGFR For African Americans > 60 (> 60); eGFR For Non-African Americans > 60 (> 60)
[2022-03-05] MEDS: Metoprolol XL (24 HR) Succ 50 MG TAB.ER.24H PO SCH ×3 (08:54→22:03)
[2022-03-05] MEDS: Aspirin Enteric Coated 81 MG Tablet PO SCH (08:58)
[2022-03-05] MEDS: Magnesium Oxide 400 MG TABLET PO SCH (08:58)
[2022-03-05] MEDS: Insulin LISPRO 300 UNITS/3 ML VIAL SUBQ SCH ×6 (08:59→22:16)
[2022-03-05] MEDS ORDERED: *HR* Warfarin 7.5 MG TABLET PO ONE (18:00)
[2022-03-05] MEDS: Insulin DETEMIR 100 UNIT/ML X5UNITS SUBQ SCH (22:08)
[2022-03-06 04:08] LABS: Hematocrit 41.6 % (37.5-50.1); Hemoglobin 13.7 g/dL (12.9-16.9); Mean Corpuscular HGB Conc 32.9 g/dL (31.6-35.5); Mean Corpuscular Hemoglobin 26.7 pg (28.0-33.3); Mean Corpuscular Volume 81.1 fL (83.0-100.0); Mean Platelet Volume 9.2 fL (9.4-12.4); Platelet Count 175 K/mcL (140-400); Red Blood Count 5.13 M/mcL (4.19-5.50); Red Cell Distribution Width 15.9 % (11.5-14.5); White Blood Count 7.3 K/mcL (4.3-11.1)
[2022-03-06 04:15] LABS: INR 2.2; Prothrombin Time 24.1 Seconds (9.4-12.1)
[2022-03-06 04:23] LABS: BUN/Creatinine Ratio 15 (6-26); Blood Urea Nitrogen 14 mg/dL (8-23); Calcium 9.3 mg/dL (8.6-10.3); Carbon Dioxide 26 mEq/L (23-29); Chloride 100 mEq/L (98-107); Glucose 211 mg/dL (70-105); Osmolality,Calculated 287 (280-300); Potassium 3.9 mEq/L (3.5-5.1); Sodium 135 mEq/L (136-145); eGFR For African Americans > 60 (> 60); eGFR For Non-African Americans > 60 (> 60)
[2022-03-06] MEDS: Aspirin Enteric Coated 81 MG Tablet PO SCH (08:37)
[2022-03-06] MEDS: Insulin LISPRO 300 UNITS/3 ML VIAL SUBQ SCH ×4 (08:37→21:45)
[2022-03-06] MEDS: Magnesium Oxide 400 MG TABLET PO SCH (08:37)
[2022-03-06] MEDS: Metoprolol XL (24 HR) Succ 50 MG TAB.ER.24H PO SCH ×3 (08:43→21:42)
[2022-03-06] MEDS: lisinopriL 10 MG TABLET PO SCH (10:51)
[2022-03-06] MEDS ORDERED: *HR* Warfarin 7.5 MG TABLET PO ONE (18:00)
[2022-03-06] MEDS: Melatonin 3 MG TABLET PO PRN (21:42)
[2022-03-06] MEDS: Insulin DETEMIR 100 UNIT/ML X5UNITS SUBQ SCH (21:50)
[2022-03-07 03:01] LABS: Hematocrit 41.8 % (37.5-50.1); Hemoglobin 13.4 g/dL (12.9-16.9); Mean Corpuscular HGB Conc 32.1 g/dL (31.6-35.5); Mean Corpuscular Hemoglobin 25.9 pg (28.0-33.3); Mean Corpuscular Volume 80.7 fL (83.0-100.0); Mean Platelet Volume 8.8 fL (9.4-12.4); Platelet Count 161 K/mcL (140-400); Red Blood Count 5.18 M/mcL (4.19-5.50); Red Cell Distribution Width 16.2 % (11.5-14.5); White Blood Count 8.6 K/mcL (4.3-11.1)
[2022-03-07 03:10] LABS: INR 2.4; Prothrombin Time 26.9 Seconds (9.4-12.1)
[2022-03-07 03:21] LABS: BUN/Creatinine Ratio 15 (6-26); Blood Urea Nitrogen 15 mg/dL (8-23); Calcium 9.1 mg/dL (8.6-10.3); Carbon Dioxide 25 mEq/L (23-29); Chloride 101 mEq/L (98-107); Glucose 202 mg/dL (70-105); Magnesium 1.9 mg/dL (1.6-2.6); Osmolality,Calculated 287 (280-300); Potassium 4.1 mEq/L (3.5-5.1); Sodium 135 mEq/L (136-145); eGFR For African Americans > 60 (> 60); eGFR For Non-African Americans > 60 (> 60)
[2022-03-07] MEDS: Metoprolol XL (24 HR) Succ 50 MG TAB.ER.24H PO SCH ×2 (08:57→22:00)
[2022-03-07] MEDS: lisinopriL 10 MG TABLET PO SCH (08:57)
[2022-03-07] MEDS: Aspirin Enteric Coated 81 MG Tablet PO SCH (08:57)
[2022-03-07] MEDS: Magnesium Oxide 400 MG TABLET PO SCH (08:57)
[2022-03-07] MEDS: Insulin LISPRO 300 UNITS/3 ML VIAL SUBQ SCH ×4 (08:58→22:02)
[2022-03-07] MEDS ORDERED: *HR* Warfarin 7.5 MG TABLET PO ONE (18:00)
[2022-03-07] MEDS: Melatonin 3 MG TABLET PO PRN (22:00)
[2022-03-07] MEDS: Insulin DETEMIR 100 UNIT/ML X5UNITS SUBQ SCH (22:06)
[2022-03-08 03:38] LABS: INR 2.4; Prothrombin Time 26.7 Seconds (9.4-12.1)
[2022-03-08 03:45] LABS: BUN/Creatinine Ratio 15 (6-26); Blood Urea Nitrogen 14 mg/dL (8-23); Calcium 9.3 mg/dL (8.6-10.3); Carbon Dioxide 25 mEq/L (23-29); Chloride 102 mEq/L (98-107); Glucose 226 mg/dL (70-105); Osmolality,Calculated 290 (280-300); Potassium 4.1 mEq/L (3.5-5.1); Sodium 136 mEq/L (136-145); eGFR For African Americans > 60 (> 60); eGFR For Non-African Americans > 60 (> 60)
[2022-03-08 08:05] LABS: Magnesium 1.9 mg/dL (1.6-2.6)
[2022-03-08] MEDS: Aspirin Enteric Coated 81 MG Tablet PO SCH (08:19)
[2022-03-08] MEDS: Magnesium Oxide 400 MG TABLET PO SCH (08:19)
[2022-03-08] MEDS: lisinopriL 10 MG TABLET PO SCH (08:19)
[2022-03-08] MEDS: Insulin LISPRO 300 UNITS/3 ML VIAL SUBQ SCH ×4 (08:20→21:41)
[2022-03-08] MEDS: Metoprolol XL (24 HR) Succ 50 MG TAB.ER.24H PO SCH ×2 (08:20→21:40)
[2022-03-08 16:45] VITALS: O2SAT 96
[2022-03-08] MEDS ORDERED: *HR* Warfarin 7.5 MG TABLET PO ONE (18:00)
[2022-03-08] MEDS: Insulin DETEMIR 100 UNIT/ML X5UNITS SUBQ SCH (21:40)
[2022-03-09 01:17] LABS: INR 2.5; Prothrombin Time 27.3 Seconds (9.4-12.1)
[2022-03-09 01:24] LABS: BUN/Creatinine Ratio 17 (6-26); Blood Urea Nitrogen 19 mg/dL (8-23); Carbon Dioxide 24 mEq/L (23-29); Chloride 101 mEq/L (98-107); Glucose 328 mg/dL (70-105); Osmolality,Calculated 293 (280-300); Potassium 4.1 mEq/L (3.5-5.1); Sodium 134 mEq/L (136-145); eGFR For African Americans > 60 (> 60); eGFR For Non-African Americans > 60 (> 60)
[2022-03-09] MEDS ORDERED: Insulin LISPRO 300 UNITS/3 ML VIAL SUBQ SCH ×2 (07:39)
[2022-03-09] MEDS: Insulin LISPRO 300 UNITS/3 ML VIAL SUBQ SCH ×3 (07:47→12:22)
[2022-03-09 07:48] LABS: Magnesium 1.9 mg/dL (1.6-2.6)
[2022-03-09] MEDS: Metoprolol XL (24 HR) Succ 50 MG TAB.ER.24H PO SCH (07:57)
[2022-03-09] MEDS: Aspirin Enteric Coated 81 MG Tablet PO SCH (07:57)
[2022-03-09] MEDS: Magnesium Oxide 400 MG TABLET PO SCH (07:57)
[2022-03-09] MEDS: lisinopriL 10 MG TABLET PO SCH (07:58)
[2022-03-09] MEDS ORDERED: Insulin DETEMIR 100 UNIT/ML X5UNITS SUBQ SCH (09:00)
[2022-03-09 11:37] VITALS: BP 129/76; PULSE 56; TEMP 98.4
[2022-03-09] MEDS ORDERED: *HR* Warfarin 7.5 MG TABLET PO ONE (18:00)
[2022-03-09] MEDS ORDERED: Metoprolol XL (24 HR) Succ 50 MG TAB.ER.24H PO SCH (21:00)
== END 2022-03-09 13:00 | disposition home or self-care (01) | DRG 309 ==
LOC: EMEROOARM 18:01 → 2ANU 18:01 → SUATTDRO 19:50 → 2ANU 20:35 → SUATTDRO 03-05 13:01
PROVIDERS: ADMIT Internal Medicine; ATTEND Family Medicine